=== PATIENT | female | born 1940 | race Two or more races ===

== ENCOUNTER → 2016-12-19 | Outpatient (CLI) | payer MEDICARE, BC ==
[2016-12-19 11:13] LABS: CHOLESTEROL 158.71 mg/dL (0-200); TRIGLYCERIDES 65 mg/dL (<150)
[2016-12-19 11:24] LABS: DIRECT LDL 40 mg/dL (<100)
[2016-12-19 11:27] LABS: Direct HDL 109 mg/dL (>40)
== END ==
LOC: OD 09:05
PROVIDERS: ATTEND Internal Medicine
DX: E78.5 Hyperlipidemia, unspecified (principal); E11.9 Type 2 diabetes mellitus without complications
CPT/HCPCS: 36415; 80061; 82043; 83036

== ENCOUNTER → 2017-02-14 | Outpatient (CLI) | payer MEDICARE, BC ==
--- NOTE | 2017-02-14 21:07 | XCELERA REPORT ---
[address] [address] Transthoracic Echocardiogram Report Name: MALGORZATA SOSA Age: 76 yrs Gender: Female : 1940 Patient Status: Outpatient Patient Location: Study Date: 02/14/2017 01:25 PM Height: 60 in Weight: 255 lb BSA: 2.1 m2 Procedure: A complete two-dimensional transthoracic echocardiogram was performed (2D, M-mode, spectral and color flow Doppler). The study was technically difficult with many images being suboptimal in quality. Reason For Study: SOB Ordering Physician: LEATHA DUNN Performed By: Marine Moseley Interpretation Summary The left ventricular ejection fraction is within normal limits. There is borderline concentric left ventricular hypertrophy. Doppler measurements suggest pseudonormalized left ventricular relaxation, which is associated with grade II/IV or mild to moderate diastolic dysfunction The left ventricle is grossly normal size. Wall motion cannot be accurately commented on, but no definite regional wall motion abnormalities noted. The right ventricle is mildly dilated. The right ventricle appears to be hypertrophied The right ventricular systolic function is normal. The right atrium is mildly dilated. The left atrium is mildly dilated. There is no mitral valve stenosis. There is a mild amount of mitral regurgitation There is no aortic valve stenosis No aortic regurgitation is present. There is a trace to mild amount of tricuspid regurgitation There is mild pulmonary hypertension by echo Right ventricular systolic pressure is estimated to be elevated at 30- 40mmHg. Minimal pericardial effusion. MMode/2D Measurements \T\ Calculations RVDd: 2.8 cm LVIDd: 5.0 cm FS: 48.4 % Ao root diam: 2.7 cm IVSd: 0.92 cm LVIDs: 2.6 cm EDV(Teich): 119.4 ml LVPWd: 0.85 cm ESV(Teich): 24.5 ml Ao root area: 5.6 cm2 EF(Teich): 79.5 % LA dimension: 3.9 cm Doppler Measurements \T\ Calculations MV E max keke: MV P1/2t max keke: Ao V2 max: LV V1 max P.0 cm/sec 117.0 cm/sec 156.3 cm/sec 3.8 mmHg MV A max keke: MV P1/2t: 86.0 msec Ao max PG: LV V1 max: 139.2 cm/sec 9.8 mmHg 97.2 cm/sec MV E/A: 0.84 MVA(P1/2t): 2.6 cm2 MV dec slope: 398.3 cm/sec2 MV dec time: 0.29 sec PA V2 max: TR max keke: 105.6 cm/sec 285.6 cm/sec PA max P.5 mmHgTR max P.6 mmHg Left Ventricle The left ventricle is grossly normal size. There is borderline concentric left ventricular hypertrophy. The left ventricular ejection fraction is within normal limits. Doppler measurements suggest pseudonormalized left ventricular relaxation, which is associated with grade II/IV or mild to moderate diastolic dysfunction. Wall motion cannot be accurately commented on, but no definite regional wall motion abnormalities noted. Right Ventricle The right ventricle is mildly dilated. The right ventricle appears to be hypertrophied. The right ventricular systolic function is normal. Atria The right atrium is mildly dilated. The left atrium is mildly dilated. Interarterial septum not well visualized and not well dopplered. Cannot comment on ASD/PFO presence. Mitral Valve There is mild mitral annular calcification. There is no mitral valve stenosis. There is a mild amount of mitral regurgitation. Aortic Valve The aortic valve is mildly calcified. There is no aortic valve stenosis. No aortic regurgitation is present. Tricuspid Valve The tricuspid valve is not well visualized secondary to technical limitations. There is no tricuspid stenosis. There is a trace to mild amount of tricuspid regurgitation. There is mild pulmonary hypertension by echo. Right ventricular systolic pressure is estimated to be elevated at 30-40mmHg. Pulmonic Valve The pulmonic valve is not well visualized. Great Vessels The aortic root is not well visualized. The inferior vena cava was not well visualized. Effusions Minimal pericardial effusion. : LEATHA DUNN > Sagar Chaidez
== END ==
LOC: SP 12:55
PROVIDERS: ATTEND Family Medicine
DX: R06.02 Shortness of breath (principal)
CPT/HCPCS: 93306

== ENCOUNTER → 2017-03-27 | Outpatient (CLI) | payer MEDICARE, BC ==
--- NOTE | 2017-03-27 16:13 | XCELERA REPORT ---
[address] [address] Lower Extremity Arterial Evaluation Name: MALGORZATA SOSA Age: 76 yrs Gender: Female : 1940 Patient Status: Outpatient Patient Location: Study Date: 03/27/2017 11:15 AM Procedure: A color flow and duplex scan of the lower extremity arteries was performed bilaterally with velocity and waveform anaylsis. Ankle brachial indicies performed. Reason For Study: PAIN Ordering Physician: LEATHA DUNN Performed By: Marine Moseley Measurements and Calculations Right Left MODEL ENGINE MECHANIC PSV 105.3 86.9 cm/sec Prox PFA PSV -91.5 -125.7 cm/sec Prox SFA PSV 81.6 70.2 cm/sec Mid SFA PSV -87.1 -86.6 cm/sec Dist SFA PSV -121.3 -48.9 cm/sec Prox Pop A PSV 91.0 81.6 cm/sec Dist KAITY PSV 53.8 31.4 cm/sec Dist GRANITE COUNTERTOP INSTALLER PSV 100.9 79.5 cm/sec Brian Pedis PSV 62.1 -50.2 cm/sec Right Side Arterial Evaluation Normal velocity and triphasic waveforms noted in the Common Femoral artery. Biphasic from the Femoral to the infrageniculate vessels. 0-19% stenosis at the Femoral artery. Ankle Brachial index not obtainable due to non compressibility. Diffuse intimal calcification noted on burrell scale imaging. Left Side Arterial Evaluation Normal velocity and biphasic waveforms noted from the Common Femoral artery to the infrageniculate vessels. 0-19% stenosis at the inflow, aorta Iliac segment. Ankle Brachial index not obtainable due to non compressibility. Diffuse intimal calcification noted on burrell scale imaging. Interpretation Summary Mild hemodynamically significant lesions in the bilateral lower extremities, on duplex imaging, at rest. : LEATHA DUNN > Pablito Calderon
== END ==
LOC: SP 10:19
PROVIDERS: ATTEND Family Medicine
DX: M79.604 Pain in right leg (principal); M79.605 Pain in left leg
CPT/HCPCS: 93925

== ENCOUNTER 2017-05-31 12:17 | Emergency (ER) | payer MEDICARE, BC ==
--- NOTE | 2017-05-31 12:58 | ER Document Report ---
ED Medical Screen (RME) - General Chief Complaint: Foot Pain Stated Complaint: FEET PAIN Time Seen by Provider: 05/31/17 12:55 Mode of Arrival: Wheelchair Information source: Patient TRAVEL OUTSIDE OF THE [place] IN LAST 30 DAYS: No - HPI Patient complains to provider of: ulcers on both feet Onset: Other - pt has been referred to surgeon in [facility] to "improve the circulation in my legs" has had bilateral ulcers on feet for several weeks that have not healed. - Related Data Allergies/Adverse Reactions: No Known Allergies Allergy (Verified 05/15/16 16:29) Past Medical History - Social History Frequency of alcohol use: None Drug Abuse: None - Past Medical History Cardiac Medical History: Reports: Hx Hypercholesterolemia, Hx Hypertension Endocrine Medical History: Reports: Hx Diabetes Mellitus Type 1, Hx Diabetes Mellitus Type 2 Renal/ Medical History: Denies: Hx Peritoneal Dialysis GI Medical History: Reports: Hx Gastroesophageal Reflux Disease Past Surgical History: Reports: Hx Cholecystectomy - Immunizations Hx Diphtheria, Pertussis, Tetanus Vaccination: Yes Physical Exam - Vital signs Vitals: Temp Pulse Resp BP Pulse Ox 98.1 F 64 16 91/54 L 99 05/31/17 12:31 05/31/17 12:31 05/31/17 12:31 05/31/17 12:31 05/31/17 12:31 Course - Vital Signs Vital signs: Temp Pulse Resp BP Pulse Ox 98.1 F 64 16 91/54 L 99 05/31/17 12:31 05/31/17 12:31 05/31/17 12:31 05/31/17 12:31 05/31/17 12:31
--- NOTE | 2017-05-31 13:24 | ER Document Report ---
ED General - General Chief Complaint: Foot Pain Stated Complaint: FEET PAIN Time Seen by Provider: 05/31/17 12:55 Mode of Arrival: Wheelchair Information source: Patient Notes: 7-year-old female presents to ED for diabetic ulcers to bilateral feet multiple areas 3 months. She is also a history of diabetes high blood pressure cholesterol and anemia. She states she has been short of breath times a week with palpitations. Blood pressure in the emergency room is 91/54 with a pulse of 64. TRAVEL OUTSIDE OF THE [place] IN LAST 30 DAYS: No - HPI Onset: Other - HPI Onset/Duration: Gradual Severity: Severe Pain Level: 5 Associated symptoms: Other - The bilateral feet shortness of breath states she has had palpitations for the last week. Has a history of anemia diabetes blood pressure cholesterol Exacerbated by: Movement, Walking Relieved by: Denies Similar symptoms previously: Yes Recently seen / treated by doctor: Yes - Related Data Allergies/Adverse Reactions: No Known Allergies Allergy (Verified 05/15/16 16:29) Past Medical History - General Information source: Patient - Social History Smoking Status: Never Smoker Cigarette use (# per day): No Chew tobacco use (# tins/day): No Smoking Education Provided: No Frequency of alcohol use: None Drug Abuse: None Lives with: Family Family History: Arthritis, CAD, DM, Hyperlipidemia, Hypertension. denies: COPD , CVA, Malignancy, Thyroid Disfunction Patient has suicidal ideation: No Patient has homicidal ideation: No - Medical History Medical History: Other - Anemia - Past Medical History Cardiac Medical History: Reports: Hx Hypercholesterolemia, Hx Hypertension Pulmonary Medical History: Reports: None EENT Medical History: Reports: None Endocrine Medical History: Reports: Hx Diabetes Mellitus Type 2 Renal/ Medical History: Reports: None Malignancy Medical History: Reports: None GI Medical History: Reports: Hx Gastroesophageal Reflux Disease Musculoskeltal Medical History: Reports Hx Arthritis Skin Medical History: Reports Hx Cellulitis Psychiatric Medical History: Reports: None Traumatic Medical History: Reports: None Infectious Medical History: Reports: None Past Surgical History: Reports: Hx Cholecystectomy - Immunizations Immunizations up to date: Yes Hx Diphtheria, Pertussis, Tetanus Vaccination: Yes Review of Systems - Review of Systems Constitutional: No symptoms reported EENT: No symptoms reported Cardiovascular: Palpitations Respiratory: Short of breath, Other - Anemia Gastrointestinal: No symptoms reported Genitourinary: No symptoms reported Female Genitourinary: No symptoms reported Musculoskeletal: No symptoms reported Skin: Other - Diabetic ulcers to both feet Hematologic/Lymphatic: No symptoms reported Neurological/Psychological: No symptoms reported -: Yes All other systems reviewed and negative Physical Exam - Vital signs Vitals: Temp Pulse Resp BP Pulse Ox 98.1 F 64 16 91/54 L 99 05/31/17 12:31 05/31/17 12:31 05/31/17 12:31 05/31/17 12:31 05/31/17 12:31 Interpretation: Normal - General General appearance: Appears well, Alert - HEENT Head: Normocephalic, Atraumatic Eyes: Normal Pupils: PERRL - Respiratory Respiratory status: No respiratory distress Chest status: Nontender Breath sounds: Normal Chest palpation: Normal - Cardiovascular Rhythm: Regular Heart sounds: Normal auscultation Murmur: No - Abdominal Inspection: Normal Distension: No distension Bowel sounds: Normal Tenderness: Nontender Organomegaly: No organomegaly - Back Back: Normal, Nontender - Extremities General upper extremity: Normal inspection, Nontender, Normal color, Normal ROM , Normal temperature General lower extremity: Normal inspection, Nontender, Normal color, Normal ROM , Normal temperature, Normal weight bearing. No: Sadi's sign - Neurological Neuro grossly intact: Yes Cognition: Normal Orientation: AAOx4 Malissa Coma Scale Eye Opening: Spontaneous [place] Coma Scale Verbal: Oriented Malsisa Coma Scale Motor: Obeys Commands Am[place] Coma Scale Total: 15 Speech: Normal Motor strength normal: LUE, RUE, LLE, RLE Sensory: Normal - Psychological Associated symptoms: Normal affect, Normal mood - Skin Skin Temperature: Warm Skin Moisture: Dry Skin Color: Normal Location of irregularity: Extremities - Multiple diabetic ulcers to both feet. Second toe on right foot is very mushy and discolored. Both have a decubitus the medial side of the left foot beside the big toe has a ulcer. Irregularity with: Swelling, Tenderness Course - Re-evaluation Re-evalutation: 05/31/17 16:07 Chest x-ray with patient and written report given to patient to follow-up with her primary doctor. Patient discharged home to follow-up with her primary doctor by telephone - Vital Signs Vital signs: Temp Pulse Resp BP Pulse Ox 98.1 F 64 18 110/63 99 05/31/17 12:31 05/31/17 15:49 05/31/17 15:49 05/31/17 15:49 05/31/17 15:49 - Laboratory Result Diagrams: 05/31/17 13:30 05/31/17 14:35 Laboratory results interpreted by me: 05/31/17 05/31/17 13:30 14:35 MCH 26.1 L MCHC 31.6 L Sodium 136.6 L Est GFR ( Amer) 57 L Est GFR (Non-Af Amer) 47 L Glucose 213 H - Diagnostic Test Radiology reviewed: Image reviewed, Reports reviewed Discharge - Discharge Clinical Impression: Diabetic feet ulcers bilateral Condition: Stable Disposition: HOME, SELF-CARE Additional Instructions: Seen today for diabetic foot ulcers to both feet. I have given you and discussed with you a copy of your lab work from today as well as x-rays of both feet and your chest. Please take your lab results and your x-ray results to your primary doctor for follow-up. Please call your primary doctor tomorrow and let them know that you were in the emergency room. Continue medications and dressings as prescribed by your primary doctor. FOLLOW-UP CARE: If you have been referred to a physician for follow-up care, call the physician s office for an appointment as you were instructed or within the next two days. If you experience worsening or a significant change in your symptoms, notify the physician immediately or return to the Emergency Department at any time for re-evaluation. Referrals: LEATHA DUNN MD [Primary Care Provider] - Follow up tomorrow
[2017-05-31 13:50] LABS: ABSOLUTE BASOPHILS # (AUTO) 0.1 10^3/uL (0.0-0.2); ABSOLUTE EOSINOPHILS # (AUTO) 0.1 10^3/uL (0.0-0.6); ABSOLUTE LYMPHOCYTES (AUTO) 2.2 10^3/uL (0.5-4.7); ABSOLUTE MONOCYTES (AUTO) 0.5 10^3/uL (0.1-1.4); ABSOLUTE NEUT (AUTO) 6.6 10^3/uL (1.7-8.2); BASOPHILS % (AUTO) 0.6 % (0-2); EOSINOPHILS % (AUTO) 1.3 % (0-6); HEMATOCRIT 40.6 % (36.0-47.0); HEMOGLOBIN 12.8 g/dL (12.0-15.5); HGB HCT DIFFERENCE -2.2; LYMPHOCYTES % (AUTO) 23.2 % (13-45); MEAN CORPUSCULAR HEMOGLOBIN 26.1 pg (27.0-33.4); MEAN CORPUSCULAR HGB CONC 31.6 g/dL (32.0-36.0); MEAN CORPUSCULAR VOLUME 83 fl (80-97); MONOCYTES % (AUTO) 5.8 % (3-13); RED BLOOD COUNT 4.92 10^6/uL (3.72-5.28); SEGMENTED NEUTROPHILS % (AUTO) 69.1 % (42-78); WHITE BLOOD COUNT 9.5 10^3/uL (4.0-10.5)
--- NOTE | 2017-05-31 14:51 | RADIOLOGY REPORT (SQ) ---
EXAM DESCRIPTION: CHEST PA/LAT COMPLETED DATE/TIME: 05/31/2017 2:35 pm REASON FOR STUDY: short of breath 3 + edema COMPARISON: August 2016 EXAM PARAMETERS: NUMBER OF VIEWS: two views TECHNIQUE: Digital Frontal and Lateral radiographic views of the chest acquired. RADIATION DOSE: NA LIMITATIONS: Study is limited somewhat due to the patient's body habitus. FINDINGS: LUNGS AND PLEURA: No opacities, masses or pneumothorax. No pleural effusion. MEDIASTINUM AND HILAR STRUCTURES: No masses or contour abnormalities. HEART AND VASCULAR STRUCTURES: Heart normal size. No evidence for failure. BONES: No acute findings. HARDWARE: None in the chest. OTHER: No other significant finding. IMPRESSION: NO SIGNIFICANT RADIOGRAPHIC FINDING IN THE CHEST. TECHNICAL DOCUMENTATION: JOB ID: [id number] [employer]- All Rights Reserved
--- NOTE | 2017-05-31 14:52 | RADIOLOGY REPORT (SQ) ---
EXAM DESCRIPTION: FOOT LEFT COMPLETE COMPLETED DATE/TIME: 05/31/2017 2:35 pm REASON FOR STUDY: multiple foot ulcers COMPARISON: None. NUMBER OF VIEWS: Three views. TECHNIQUE: AP, lateral and oblique radiographic images acquired of the left foot. LIMITATIONS: Bony structures are osteopenic which decreases the sensitivity for detecting bony invol vement by osteomyelitis. FINDINGS: MINERALIZATION: Bony structures are diffusely osteopenic BONES: No acute fracture or dislocation. No worrisome bone lesions. JOINTS: No effusions. SOFT TISSUES: No soft tissue swelling. No foreign body. OTHER: Extensive vascular calcifications are identified. IMPRESSION: No plain film evidence for bony involvement by osteomyelitis. No definite subcutaneous air is identified. Extensive vascular calcifications are identified TECHNICAL DOCUMENTATION: JOB ID: [id number] [employer]- All Rights Reserved
--- NOTE | 2017-05-31 14:54 | RADIOLOGY REPORT (SQ) ---
EXAM DESCRIPTION: FOOT RIGHT COMPLETE COMPLETED DATE/TIME: 05/31/2017 2:35 pm REASON FOR STUDY: multiple foot ulcers COMPARISON: None. NUMBER OF VIEWS: Three views. TECHNIQUE: AP, lateral and oblique radiographic images acquired of the right foot. LIMITATIONS: Bony structures are osteopenic which decreases the sensitivity for detecting bony invol vement by osteomyelitis. FINDINGS: MINERALIZATION: Bony structures are osteopenic BONES: No acute fracture or dislocation. No worrisome bone lesions. JOINTS: No effusions. SOFT TISSUES: No soft tissue swelling. No foreign body. OTHER: Vascular calcifications are identified. IMPRESSION: No plain film evidence for bony involvement by osteomyelitis. Other findings as noted a eber. TECHNICAL DOCUMENTATION: JOB ID: [id number] [employer]- All Rights Reserved
[2017-05-31 15:28] LABS: ALANINE AMINOTRANSFERASE 21 U/L (9-52); ALBUMIN 3.6 g/dL (3.5-5.0); ALKALINE PHOSPHATASE 81 U/L (38-126); ANION GAP 12 (5-19); ASPARTATE AMINO TRANSFERASE 17 U/L (14-36); BILIRUBIN,DIRECT 0.3 mg/dL (0.0-0.4); BILIRUBIN,TOTAL 0.5 mg/dL (0.2-1.3); BLOOD UREA NITROGEN 20 mg/dL (7-20); CALCIUM 9.6 mg/dL (8.4-10.2); CARBON DIOXIDE 22 mmol/L (22-30); CHLORIDE 103 mmol/L (98-107); CREATININE RESULT 1.13 mg/dL (0.52-1.25); GLUCOSE 213 mg/dL (75-110); SODIUM 136.6 mmol/L (137-145); TOTAL PROTEIN 6.8 g/dL (6.3-8.2)
[2017-05-31 15:50] VITALS: BP 110/63
== END 2017-05-31 16:05 | disposition home or self-care (01) ==
LOC: ER 12:17
DX: E11.621 Type 2 diabetes mellitus with foot ulcer (principal); L97.519 Non-pressure chronic ulcer of other part of right foot with unspecified severity; L97.529 Non-pressure chronic ulcer of other part of left foot with unspecified severity; R06.02 Shortness of breath; E78.00 Pure hypercholesterolemia, unspecified; I10 Essential (primary) hypertension; D64.9 Anemia, unspecified; Z90.49 Acquired absence of other specified parts of digestive tract
CPT/HCPCS: 36415; 71020; 80053; 83880; 85025; 86850; 86900; 86901; 87040; 99283

== ENCOUNTER 2017-06-17 14:54 | Inpatient (IN) | payer MEDICARE, BC ==
--- NOTE | 2017-06-17 15:41 | ER Document Report ---
ED Wound <MONSE PALM - Last Filed: 06/17/17 18:57> - General Information source: Patient TRAVEL OUTSIDE OF THE [place] IN LAST 30 DAYS: No - HPI Patient complains to provider of: Wound infection Associated Symptoms: Other - see above <ALONSO DALEANDRA - Last Filed: 06/17/17 19:13> - General Chief Complaint: Wound Infection Stated Complaint: FOOT PAIN Time Seen by Provider: 06/17/17 15:14 Notes: Patient is a 77 year old female who presents to the ED from the wound clinic with complaints of bilateral foot pain and wound infection. Patient had a failed angioplasty done on both legs on 06/11/2017 in [place]. Patient states her left foot is worse than her right foot. PCP: Dr. Schmitt (MARLENE DALE) - Related Data Allergies/Adverse Reactions: No Known Allergies Allergy (Verified 06/17/17 15:06) Home Medications: Current Home Medications Aspirin [Aspirin 81 mg Chewable Tablet] 81 mg PO DAILY 06/17/17 [History] Hydrochlorothiazide 25 mg PO DAILY 06/17/17 [History] Insulin Glargine,Hum.rec.anlog [Lantus Insulin 100 Unit/1 ml 10 ml] 40 unit SUBCUT DAILY 06/17/17 [History] Insulin Lispro [Humalog] 15 unit SQ TID 06/17/17 [History] Latanoprost 1 drop OU QHS 06/17/17 [History] Losartan Potassium PO DAILY 06/17/17 [History] Metformin HCl [Glucophage] 1,000 mg PO BID 06/17/17 [History] Simvastatin [Zocor 20 mg Tablet] 20 mg PO DAILY 06/17/17 [History] Timolol Maleate [Timoptic 0.25% Oph Soln 5 Ml] 2 drop OU BID 06/17/17 [History] Past Medical History - General Information source: Patient - Social History Smoking Status: Unknown if Ever Smoked Frequency of alcohol use: None Drug Abuse: None Family History: Arthritis, CAD, DM, Hyperlipidemia, Hypertension. denies: COPD , CVA, Malignancy, Thyroid Disfunction - Past Medical History Cardiac Medical History: Reports: Hx Hypercholesterolemia, Hx Hypertension, Hx Peripheral Vascular Disease EENT Medical History: Reports: Eyes - Glaucoma Endocrine Medical History: Reports: Hx Diabetes Mellitus Type 2 Renal/ Medical History: Denies: Hx Peritoneal Dialysis GI Medical History: Reports: Hx Gastroesophageal Reflux Disease Musculoskeltal Medical History: Reports Hx Arthritis Skin Medical History: Reports Hx Cellulitis Past Surgical History: Reports: Hx Cholecystectomy - Immunizations Immunizations up to date: Yes Hx Diphtheria, Pertussis, Tetanus Vaccination: Yes <MARLENE DALE - Last Filed: 06/17/17 19:13> Review of Systems - Review of Systems Constitutional: No symptoms reported EENT: No symptoms reported Cardiovascular: No symptoms reported Respiratory: No symptoms reported Gastrointestinal: No symptoms reported Genitourinary: No symptoms reported Female Genitourinary: No symptoms reported Musculoskeletal: See HPI, Other - bilateral foot pain secondary to wound infection Skin: See HPI, Other - bilateral wound infeciton on feet Hematologic/Lymphatic: No symptoms reported Neurological/Psychological: No symptoms reported <ALONSO DALEANDRA - Last Filed: 06/17/17 19:13> Physical Exam <MONSE PALM - Last Filed: 06/17/17 18:57> <MARLENE DALE - Last Filed: 06/17/17 19:13> - Vital signs Vitals: Temp Pulse Resp BP Pulse Ox 99.3 F 78 16 115/56 L 97 06/17/17 15:04 06/17/17 15:04 06/17/17 15:04 06/17/17 15:04 06/17/17 15:04 - Notes Notes: GENERAL: Well-appearing, well nourished and in no acute distress. HEAD: Normocephalic, atraumatic. Eyes: Pupils equal, round, and reactive to light. Extraocular movements intact. ENT: Oral mucosa moist, tongue midline. NECK: Full range of motion. Supple without lymphadenopathy. LUNGS: Clear to auscultation bilaterally, no wheezes, rales, or rhonchi. No respiratory distress. HEART: Regular rate and rhythm. No murmurs, gallops, or rubs. ABDOMEN: Soft, non-tender. Obese. Bowel sounds present in all 4 quadrants. EXTREMITIES: Normal ROM. No Edema. NEUROLOGICAL: Alert and oriented x3. Normal speech. No focal neurological deficits. PSYCH: Normal affect, normal mood. SKIN: Right 4th toe is black, chronically and unchanged. Right lateral heel has a small ulcer with no swelling or infection noted. Left lateral foot has a large stage 4 ulcer that is wet with a bad odor, 3x6 cm with macerated skin around the edges. (MARLENE DALE) Course - Laboratory Result Diagrams: 06/17/17 17:29 06/17/17 17:29 <MONSE PALM - Last Filed: 06/17/17 18:57> - Laboratory Result Diagrams: 06/17/17 17:29 06/17/17 17:29 - Consults Dr. Schmitt Time consulted: 19:00 Consulted provider: will see as inpatient Dr. Pearson Time consulted: 19:07 <MARLENE DALE - Last Filed: 06/17/17 19:13> - Vital Signs Vital signs: Temp Pulse Resp BP Pulse Ox 99.3 F 78 16 115/56 L 97 06/17/17 15:04 06/17/17 15:04 06/17/17 15:04 06/17/17 15:04 06/17/17 15:04 - Laboratory Laboratory results interpreted by me: 06/17/17 06/17/17 06/17/17 17:18 17:29 17:29 WBC 17.0 H Hgb 10.4 L Hct 31.4 L MCH 26.8 L RDW 14.6 H Seg Neutrophils % 85.0 H Lymphocytes % 8.8 L Absolute Neutrophils 14.5 H Carbon Dioxide 19 L Est GFR (Non-Af Amer) 51 L Glucose 151 H AST 39 H Alkaline Phosphatase 155 H Albumin 3.3 L Urine Ketones TRACE H - Consults Dr. Schmitt Reason for consultation: 06/17/17 19:00 Discussed patient. Patient is accepted for admission. I will consult with Dr. Pearson to have him evaluate the patient. (MARLENE DALE) Dr. Pearson Reason for consultation: 06/17/17 19:07 Discussed patient. He agrees to assess the patient as inpatient. (MARLENE DALE) Discharge - Discharge Admitting Provider: [facility] Unit Admitted: Medical Floor <MONSE PALM - Last Filed: 06/17/17 18:57> <MARLENE DALE - Last Filed: 06/17/17 19:13> - Discharge Clinical Impression: Diabetic foot ulcers Qualifiers: Diabetic foot ulcer location: unspecified part of foot Diabetes mellitus type: type 2 Laterality: left Non-pressure ulcer stage: unspecified non-pressure ulcer stage Qualified Code(s): E11.621 - Type 2 diabetes mellitus with foot ulcer Leukocytosis Qualifiers: Leukocytosis type: unspecified Qualified Code(s): D72.829 - Elevated white blood cell count, unspecified Referrals: LEATHA SCHMITT MD [Primary Care Provider] - Follow up as needed Scribe Attestation: 06/17/17 19:08 I personally performed the services described in the documentation, reviewed and edited the documentation which was dictated to the scribe in my presence, and it accurately records my words and actions. (MONSE PALM) Scribe Documentation - Scribe Written by Alexa:: alexa Foster, 06/17/2017, 1535 acting as scribe for :: Joni <MARLENE DALE - Last Filed: 06/17/17 19:13>
[2017-06-17 17:45] LABS: ABSOLUTE BASOPHILS # (AUTO) 0.1 10^3/uL (0.0-0.2); ABSOLUTE LYMPHOCYTES (AUTO) 1.5 10^3/uL (0.5-4.7); ABSOLUTE MONOCYTES (AUTO) 0.9 10^3/uL (0.1-1.4); ABSOLUTE NEUT (AUTO) 14.5 10^3/uL (1.7-8.2); BASOPHILS % (AUTO) 0.5 % (0-2); EOSINOPHILS % (AUTO) 0.3 % (0-6); HEMATOCRIT 31.4 % (36.0-47.0); HEMOGLOBIN 10.4 g/dL (12.0-15.5); HGB HCT DIFFERENCE -0.2; LYMPHOCYTES % (AUTO) 8.8 % (13-45); MEAN CORPUSCULAR HEMOGLOBIN 26.8 pg (27.0-33.4); MEAN CORPUSCULAR HGB CONC 33.2 g/dL (32.0-36.0); MEAN CORPUSCULAR VOLUME 81 fl (80-97); MONOCYTES % (AUTO) 5.4 % (3-13); RED BLOOD COUNT 3.88 10^6/uL (3.72-5.28); RED CELL DISTRIBUTION WIDTH 14.6 % (11.5-14.0)
[2017-06-17 18:13] LABS: ALANINE AMINOTRANSFERASE 35 U/L (9-52); ALBUMIN 3.3 g/dL (3.5-5.0); ALKALINE PHOSPHATASE 155 U/L (38-126); ANION GAP 14 (5-19); ASPARTATE AMINO TRANSFERASE 39 U/L (14-36); BILIRUBIN,DIRECT 0.4 mg/dL (0.0-0.4); BILIRUBIN,TOTAL 0.7 mg/dL (0.2-1.3); BLOOD UREA NITROGEN 16 mg/dL (7-20); CALCIUM 9.4 mg/dL (8.4-10.2); CARBON DIOXIDE 19 mmol/L (22-30); CHLORIDE 105 mmol/L (98-107); CREATININE RESULT 1.05 mg/dL (0.52-1.25); GLUCOSE 151 mg/dL (75-110); POTASSIUM 4.8 mmol/L (3.6-5.0); SODIUM 137.6 mmol/L (137-145); TOTAL PROTEIN 6.3 g/dL (6.3-8.2)
[2017-06-17 18:54] LABS: APPEARANCE,URINE SLIGHTLY-CLOUDY; BILIRUBIN,URINE NEGATIVE (NEGATIVE); GLUCOSE, URINE NEGATIVE (NEGATIVE); KETONES,URINE TRACE mg/dL (NEGATIVE); LEUKOCYTE ESTERASE,URINE NEGATIVE (NEGATIVE); NITRITE,URINE NEGATIVE (NEGATIVE); PROTEIN,URINE NEGATIVE (NEGATIVE); URINE SPECIFIC GRAVITY 1.014; UROBILINOGEN,URINE NEGATIVE mg/dL (<2.0)
[2017-06-17] MEDS ORDERED: ERTAPENEM SODIUM INJ 1 GM VIAL IV ONE (19:08)
[2017-06-17] MEDS ORDERED: ONDANSETRON HCL INJ/PF 4 MG/2 ML SDV IV PRN (19:26)
[2017-06-17] MEDS ORDERED: GLUCAGON,HUMAN RECOMB 1 MG INJ IM PRN (19:34)
[2017-06-17] MEDS ORDERED: DEXTROSE 50%-WATER 25 GM/50 ML DISP.SYRIN IV PRN ×2 (19:34)
[2017-06-17] MEDS ORDERED: DEXTROSE 40% GEL 15 GM TUBE PO PRN ×2 (19:34)
[2017-06-17 19:47] LABS: PROTHROMBIN TIME 13.4 SEC (11.4-15.4)
--- NOTE | 2017-06-17 20:02 | PDOC CONSULTATION ---
Consultation Consult Date: 06/17/17 Attending physician:: MICHAEL SCHMITT Consult reason:: ischemic left foot History of Present Illness Admission Date/PCP: 06/17/17 19:27 LEATHA SCHMITT MD History of Present Illness: MALGORZATA SOSA is a 77 year old female Who was sent to the emergency department for further evaluation and admission to [facility] under the care of Dr. Schmitt. The patient was seen at the advanced wound center today by Dr. Real who is been following her for some time. The patient has a known left posterior lateral foot wound related to diabetic infection and ischemic neuropathy. Patient is a 5 day status post arteriogram by Dr. Andrea in [place]. I spoke with Dr. Andrea on the phone this evening who stated that the patient's inflow at the SFA and popliteal arteries is acceptable, however her reconstitution at the ankle and beyond his pathetic; there is no opportunity for revascularization distally. Patient evaluated in the emergency department with a septic left foot, foul smelling and surgery was consulted. According to patient she has not walked in over 2 months although I cannot verify this report. Apparently she has chronic back pain obesity and has walk with a walker in the past. Past Medical History Cardiac Medical History: Reports: Hyperlipidema, Hypertension, Peripheral Vascular Disease EENT Medical History: Reports: Eyes - Glaucoma Endocrine Medical History: Reports: Diabetes Mellitus Type 1, Diabetes Mellitus Type 2 GI Medical History: Reports: Gastroesophageal Reflux Disease Musculoskeltal Medical History: Reports: Arthritis Past Surgical History Past Surgical History: Reports: Cholecystectomy, Other - Midline incision for uncertain reason Social History Smoking Status: Unknown if Ever Smoked Frequency of Alcohol Use: None Drugs: None Family History Family History: Arthritis, CAD, DM, Hyperlipidemia, Hypertension. denies: COPD , CVA, Malignancy, Thyroid Disfunction Parental Family History Reviewed: Yes Children Family History Reviewed: Yes Sibling(s) Family History Reviewed.: Yes Medication/Allergy Home Medications: Aspirin [Aspirin 81 mg Chewable Tablet] 81 mg PO DAILY 06/17/17 Hydrochlorothiazide 25 mg PO DAILY 06/17/17 Insulin Glargine,Hum.rec.anlog [Lantus Insulin 100 Unit/1 ml 10 ml] 40 unit SUBCUT DAILY 06/17/17 Insulin Lispro [Humalog] 15 unit SQ TID 06/17/17 Latanoprost 1 drop OU QHS 06/17/17 Losartan Potassium PO DAILY 06/17/17 Metformin HCl [Glucophage] 1,000 mg PO BID 06/17/17 Simvastatin [Zocor 20 mg Tablet] 20 mg PO DAILY 06/17/17 Timolol Maleate [Timoptic 0.25% Oph Soln 5 Ml] 2 drop OU BID 06/17/17 Allergies/Adverse Reactions: No Known Allergies Allergy (Verified 06/17/17 15:06) Review of Systems Constitutional: PRESENT: other - Has been having cold and hot spells Eyes: ABSENT: visual disturbances Ears: ABSENT: hearing changes Cardiovascular: ABSENT: chest pain, dyspnea on exertion, edema, orthropnea, palpitations Musculoskeletal: PRESENT: back pain Psychiatric: ABSENT: anxiety, depression, homidical ideation, suicidal ideation Endocrine: ABSENT: cold intolerance, heat intolerance, polydipsia, polyuria Physical Exam Vital Signs: Temp Pulse Resp BP Pulse Ox 99.3 F 78 16 115/56 L 97 06/17/17 15:04 06/17/17 15:04 06/17/17 15:04 06/17/17 15:04 06/17/17 15:04 General appearance: PRESENT: no acute distress Head exam: PRESENT: normocephalic Eye exam: PRESENT: EOMI Ear exam: PRESENT: TM's normal bilaterally Teeth exam: PRESENT: dental caries Neck exam: PRESENT: full ROM Respiratory exam: PRESENT: retraction Cardiovascular exam: PRESENT: irregular rhythm Vascular exam: PRESENT: other - Patient has normal radial, femoral pulses bilaterally. I cannot palpate popliteal pulses. Rectal exam: PRESENT: deferred Extremities exam: PRESENT: other - Foul-smelling open necrotic wound posterior lateral aspect left foot with ischemic changes to the forefoot and some elements of cyanosis. Right heel with open ulcer. Assessment & Plan - Diagnosis (2) Diabetic foot ulcers Qualifiers: Diabetic foot ulcer location: unspecified part of foot Diabetes mellitus type: type 2 Laterality: left Non-pressure ulcer stage: unspecified non-pressure ulcer stage Qualified Code(s): E11.621 - Type 2 diabetes mellitus with foot ulcer; L97.509 - Non-pressure chronic ulcer of other part of unspecified foot with unspecified severity Is this a current diagnosis for this admission?: YesPlan: Chronic, now progressing to ischemia extubated by diabetes and underlying infection. Patient has worsening pain left foot greater than right foot. Status post arteriogram demonstrating insufficient vascularity below the ankle to heal her complex left foot wound Recommendations 1. I discussed patient's condition with herself and her family. In light of Dr. Andrea's recent evaluation, patient salvageable foot. She will require an amputation, below the knee versus above the knee, depending upon her personal preference, overall rehab, personal motivation to walk again, and support system. 2. Agree with IV fluids intravenous antibiotics and local wound care. 3. Discuss further with family inpatient care team surgical treatment strategy ; the patient and family that delay in May and ongoing sepsis and septic shock. - Time Time Spent: 30 to 50 Minutes Critical Time spent with patient: 15-24 minutes
[2017-06-17] MEDS ORDERED: IPRATROPIUM/ALBUTEROL 0.5-2.5 MG/3 ML AMPUL NEB ONE (20:37)
[2017-06-17] MEDS: IPRATROPIUM/ALBUTEROL 0.5-2.5 MG/3 ML AMPUL NEB SCH (21:38)
[2017-06-17] MEDS: LATANOPROST 0.005% OPH SOLN 2.5 ML OU SCH (22:14)
[2017-06-17] MEDS: INSULIN LISPRO 100 UNIT/ML 3 ML VIAL SUBCUT PRN (22:36)
[2017-06-18] MEDS: ACETAMINOPHEN 325 MG TABLET PO PRN ×2 (01:24→08:42)
[2017-06-18 05:37] LABS: ABSOLUTE BASOPHILS # (AUTO) 0.1 10^3/uL (0.0-0.2); ABSOLUTE EOSINOPHILS # (AUTO) 0.1 10^3/uL (0.0-0.6); ABSOLUTE LYMPHOCYTES (AUTO) 1.6 10^3/uL (0.5-4.7); ABSOLUTE NEUT (AUTO) 11.5 10^3/uL (1.7-8.2); BASOPHILS % (AUTO) 0.5 % (0-2); EOSINOPHILS % (AUTO) 0.4 % (0-6); HEMATOCRIT 28.5 % (36.0-47.0); HEMOGLOBIN 9.6 g/dL (12.0-15.5); HGB HCT DIFFERENCE 0.3; LYMPHOCYTES % (AUTO) 11.5 % (13-45); MEAN CORPUSCULAR HGB CONC 33.9 g/dL (32.0-36.0); MEAN CORPUSCULAR VOLUME 80 fl (80-97); RED BLOOD COUNT 3.57 10^6/uL (3.72-5.28); RED CELL DISTRIBUTION WIDTH 14.4 % (11.5-14.0); SEGMENTED NEUTROPHILS % (AUTO) 80.6 % (42-78); WHITE BLOOD COUNT 14.2 10^3/uL (4.0-10.5)
[2017-06-18 05:55] LABS: ANION GAP 12 (5-19); BLOOD UREA NITROGEN 16 mg/dL (7-20); CALCIUM 9.1 mg/dL (8.4-10.2); CARBON DIOXIDE 19 mmol/L (22-30); CHLORIDE 108 mmol/L (98-107); CREATININE RESULT 0.99 mg/dL (0.52-1.25); GLUCOSE 151 mg/dL (75-110); POTASSIUM 4.9 mmol/L (3.6-5.0); SODIUM 138.5 mmol/L (137-145)
--- NOTE | 2017-06-18 08:05 | EKG REPORT ---
SEVERITY:- ABNORMAL ECG - SINUS RHYTHM LEFT ANTERIOR FASCICULAR BLOCK : Confirmed by: Colby Moore MD 18-Jun-2017 08:03:48
--- NOTE | 2017-06-18 08:32 | PDOC H&P ---
History of Present Illness Admission Date/PCP: 06/17/17 19:27 LEATHA DUNN MD Patient complains of: Left foot wound History of Present Illness: MALGORZATA SOSA is a 77 year old female Patients came to the emergency department from the wound care for the further evaluation of left foot septic wound from the diabetic ischemia with the recent evaluations done by the vascular surgery at the [place]. The patient was seen at the advanced wound center today by Dr. Real who is been following her for some time. The patient has a known left posterior lateral foot wound related to diabetic infection and ischemic neuropathy. Patient is a 5 day status post arteriogram by Dr. Andrea in [place]. I spoke with Dr. Andrea on the phone this evening who stated that the patient's inflow at the SFA and popliteal arteries is acceptable, however her reconstitution at the ankle and beyond his pathetic; there is no opportunity for revascularization distally. Patient evaluated in the emergency department with a septic left foot , foul smelling and surgery was consulted. According to patient she has not walked in over 2 months although I cannot verify this report. Apparently she has chronic back pain obesity and has walk with a walker in the past. When I saw the patient in the floor patients denied any chest pain denied any shortness of the breath. Patients denied any history of the heart disease No significant history of the obesity and a chronic back pain and currently see a neurosurgeon as outpatient and all conservative management Past Medical History Cardiac Medical History: Reports: Hyperlipidema, Hypertension, Peripheral Vascular Disease EENT Medical History: Reports: Eyes - Glaucoma Endocrine Medical History: Reports: Diabetes Mellitus Type 1, Diabetes Mellitus Type 2 GI Medical History: Reports: Gastroesophageal Reflux Disease Musculoskeltal Medical History: Reports: Arthritis Psychiatric Medical History: Denies: Depression Past Surgical History Past Surgical History: Reports: Cholecystectomy, Other - Midline incision for uncertain reason Social History Smoking Status: Never Smoker Frequency of Alcohol Use: None Hx Recreational Drug Use: No Drugs: None Hx Prescription Drug Abuse: No Family History Family History: Reviewed & Not Pertinent, Arthritis, CAD, DM, Hyperlipidemia, Hypertension. denies: COPD, CVA, Malignancy, Thyroid Disfunction Parental Family History Reviewed: Yes Children Family History Reviewed: Yes Sibling(s) Family History Reviewed.: Yes Medication/Allergy Home Medications: Aspirin [Aspirin 81 mg Chewable Tablet] 81 mg PO DAILY 06/17/17 Hydrochlorothiazide 25 mg PO DAILY 06/17/17 Insulin Glargine,Hum.rec.anlog [Lantus Insulin 100 Unit/1 ml 10 ml] 40 unit SUBCUT DAILY 06/17/17 Insulin Lispro [Humalog] 15 unit SQ TID 06/17/17 Latanoprost 1 drop OU QHS 06/17/17 Losartan Potassium 50 mg PO DAILY 06/17/17 Meloxicam [Mobic 7.5 mg Tablet] 7.5 mg PO DAILY 06/17/17 Metformin HCl [Glucophage] 1,000 mg PO BID 06/17/17 Simvastatin [Zocor 20 mg Tablet] 20 mg PO DAILY 06/17/17 Timolol Maleate [Timoptic 0.25% Oph Soln 5 Ml] 2 drop OU BID 06/17/17 Allergies/Adverse Reactions: No Known Allergies Allergy (Verified 06/17/17 15:06) Review of Systems Constitutional: ABSENT: chills, fever(s), headache(s), weight gain, weight loss Eyes: ABSENT: visual disturbances Ears: ABSENT: hearing changes Cardiovascular: ABSENT: chest pain, dyspnea on exertion, edema, orthropnea, palpitations Respiratory: ABSENT: cough, hemoptysis Gastrointestinal: ABSENT: abdominal pain, constipation, diarrhea, hematemesis, hematochezia, nausea, vomiting Genitourinary: ABSENT: dysuria, hematuria Musculoskeletal: ABSENT: joint swelling Integumentary: ABSENT: rash, wounds Neurological: ABSENT: abnormal gait, abnormal speech, confusion, dizziness, focal weakness, syncope Psychiatric: ABSENT: anxiety, depression, homidical ideation, suicidal ideation Endocrine: ABSENT: cold intolerance, heat intolerance, menstrual abnormalities, polydipsia, polyuria Hematologic/Lymphatic: ABSENT: easy bleeding, easy bruising, lymphadenopathy Physical Exam Vital Signs: Temp Pulse Resp BP Pulse Ox 99.5 F 80 16 127/52 H 96 06/18/17 03:23 06/18/17 03:23 06/18/17 03:23 06/18/17 03:23 06/18/17 03:23 Intake & Output 06/17/17 06/18/17 06/19/17 06:59 06:59 06:59 Intake Total 240 Output Total 1 Balance 239 Weight 110.6 kg General appearance: PRESENT: no acute distress, well-developed, well-nourished Head exam: PRESENT: atraumatic, normocephalic Eye exam: PRESENT: conjunctiva pink, EOMI, PERRLA. ABSENT: scleral icterus Ear exam: PRESENT: normal external ear exam Mouth exam: PRESENT: moist, tongue midline Neck exam: PRESENT: full ROM. ABSENT: carotid bruit, JVD, lymphadenopathy, thyromegaly Respiratory exam: PRESENT: clear to auscultation caity Cardiovascular exam: PRESENT: RRR. ABSENT: diastolic murmur, rubs, systolic murmur Pulses: PRESENT: normal dorsalis pedis pul, +2 pedal pulses bilateral Vascular exam: PRESENT: normal capillary refill GI/Abdominal exam: PRESENT: normal bowel sounds, soft. ABSENT: distended, guarding, mass, organolmegaly, rebound, tenderness Rectal exam: PRESENT: deferred Extremities exam: ABSENT: pedal edema Additional comments: On the left foot the dressing is intact but very foul-smelling wound Neurological exam: PRESENT: alert, awake, oriented to person, oriented to place , oriented to time, oriented to situation, CN II-XII grossly intact. ABSENT: motor sensory deficit Psychiatric exam: PRESENT: appropriate affect, normal mood. ABSENT: homicidal ideation, suicidal ideation Skin exam: PRESENT: dry, intact, warm. ABSENT: cyanosis, rash Results Laboratory Results: 06/18/17 04:34 06/18/17 04:34 06/18/17 06/18/17 04:34 04:34 WBC 14.2 H RBC 3.57 L Hgb 9.6 L Hct 28.5 L MCV 80 MCH 27.0 MCHC 33.9 RDW 14.4 H Plt Count 341 Seg Neutrophils % 80.6 H Lymphocytes % 11.5 L Monocytes % 7.0 Eosinophils % 0.4 Basophils % 0.5 Absolute Neutrophils 11.5 H Absolute Lymphocytes 1.6 Absolute Monocytes 1.0 Absolute Eosinophils 0.1 Absolute Basophils 0.1 Sodium 138.5 Potassium 4.9 Chloride 108 H Carbon Dioxide 19 L Anion Gap 12 BUN 16 Creatinine 0.99 Est GFR ( Amer) > 60 Est GFR (Non-Af Amer) 55 L Glucose 151 H Calcium 9.1 Assessment & Plan - Diagnosis (1) Diabetic foot ulcers Qualifiers: Diabetic foot ulcer location: unspecified part of foot Diabetes mellitus type: type 2 Laterality: left Non-pressure ulcer stage: unspecified non-pressure ulcer stage Qualified Code(s): E11.621 - Type 2 diabetes mellitus with foot ulcer; L97.509 - Non-pressure chronic ulcer of other part of unspecified foot with unspecified severity Is this a current diagnosis for this admission?: YesPlan: Very extensive discussions with the Dr. Pearson patients probably need amputations because of there is no sign of any revascularizations as per discussed with the vascular surgeon in [place]. Very extensive discussions with the patient's and patients will think and discuss with her family todayContinues to IV antibiotic (2) Type 2 diabetes mellitus Qualifiers: Diabetes mellitus complication status: with diabetic arthropathy Is this a current diagnosis for this admission?: YesPlan: Continue sliding scale and continues to current medications (3) Hypertension Qualifiers: Hypertension type: essential hypertension Qualified Code(s): I10 - Essential (primary) hypertension Is this a current diagnosis for this admission?: YesPlan: Continues current medications (4) Hyperlipidemia Qualifiers: Hyperlipidemia type: unspecified Qualified Code(s): E78.5 - Hyperlipidemia, unspecified Is this a current diagnosis for this admission?: Yes (5) Obesity Qualifiers: Obesity type: unspecified obesity type Is this a current diagnosis for this admission?: YesPlan: Patient usually walk with the walker but since the left foot wound patient unable to walk much (6) Chronic back pain Qualifiers: Back pain location: low back pain Is this a current diagnosis for this admission?: YesPlan: Patients follow with the Neurosurgeon and is all conservative management (7) Peripheral vascular disease Is this a current diagnosis for this admission?: Yes (8) Ischemic neuropathy of left foot Is this a current diagnosis for this admission?: Yes (9) Leukocytosis Qualifiers: Leukocytosis type: unspecified Qualified Code(s): D72.829 - Elevated white blood cell count, unspecified Is this a current diagnosis for this admission?: YesPlan: From the sepsis from the wound start the patient on IV antibiotic follow with the surgery and get all the culture - Time Time Spent: 30 to 50 Minutes Medications reviewed and adjusted accordingly: Yes Anticipated discharge: SNF Within: Other - Inpatient Certification Medical Necessity: Need for IV Antibiotics, Need for Surgery Post Hospital Care: D/C Executive Secretary Social Welfare Documentation - Plan Summary Plan Summary: Very extensive discussions with the patient and other coordinate care with the general surgery and admit the patient and start the IV antibiotic and got the cardiac clearance
[2017-06-18] MEDS: METFORMIN HCL 500 MG TABLET PO SCH ×2 (08:42→16:57)
[2017-06-18] MEDS: IPRATROPIUM/ALBUTEROL 0.5-2.5 MG/3 ML AMPUL NEB SCH ×3 (08:44→20:09)
[2017-06-18] MEDS ORDERED: INSULIN LISPRO 15 UNIT SQ SCH (10:00)
[2017-06-18] MEDS: LOSARTAN POTASSIUM 50 MG TABLET PO SCH (10:08)
[2017-06-18] MEDS: ASPIRIN 81 MG TABLET, CHEWABLE PO SCH (10:11)
[2017-06-18] MEDS: INSULIN GLARGINE,HUM.REC.ANLOG 1,000 UNIT/10 ML UNIT SUBCUT SCH (10:15)
[2017-06-18] MEDS: ENOXAPARIN SODIUM INJ 40 MG/0.4 ML DISP.SYRIN SUBCUT SCH (10:15)
[2017-06-18] MEDS: INSULIN LISPRO 100 UNIT/ML 3 ML VIAL SUBCUT SCH ×3 (10:15→18:02)
[2017-06-18] MEDS: HYDROCHLOROTHIAZIDE 25 MG TABLET PO SCH (10:17)
[2017-06-18] MEDS: TIMOLOL MALEATE 0.25% OPH SOLN 5 ML OU SCH ×2 (10:18→18:01)
--- NOTE | 2017-06-18 10:23 | PROGRESS NOTE E ---
Progress Note NAME: MALGORZATA SOSA : 1940 AGE: 77Y DATE: 06/18/2017 ROOM: 404 SUBJECTIVE: Patient was seen at bedside, complaining of pains along the left foot. OBJECTIVE: Still has some necrotic tissue with inflammation along the left heel and lateral part of the foot. Unable to palpate pulses. The right heel also has some dry necrotic skin but it is tender. I told the nurse to put some heel pads to prevent pressure on the right heel. PLAN: Patient is not happy with the decision to amputate the left foot. I told her that there is really no alternative and the possibility of doing below-knee amputation is planned for tomorrow, and if the blood supply below the knee is not adequate then she might need an [id number] amputation. She is still trying to talk to her family about this. I will keep her n.p.o. from midnight for possible left below-knee amputation tomorrow to be done by Dr. Pearson. DICTATING PHYSICIAN: THU BARNEY M.D. [id number] PHY#: [id number] ID: [id number] JOB#: [id number] ACCT: [id number] cc: >
[2017-06-18] MEDS: OXYCODONE-ACETAMINOPHEN 5-325 MG TABLET PO PRN ×2 (12:05→18:00)
--- NOTE | 2017-06-18 14:22 | Progress Note ---
Provider Note Provider Note: Patient seen on morning rounds. Patient in need for left foot amputation. Patient denied any prior history of myocardial infarction, angina, congestive heart failure. Patient is physically inactive. A 2D echo performed several months ago showed normal LVEF. Patient denying any chest pain or shortness of breath. Patient does not exercise. Patient noted to be not in any clinical CHF. Twelve-lead EKG obtained showed no normal sinus rhythm without any significant ST-T wave changes. Patient chest x-ray reviewed and reported to have no CHF. At this point I feel patient is acceptable risk for amputation surgery which are considered on the low risk side. Therefore cleared for surgery. Will follow patient for postoperative care.
[2017-06-18] MEDS: ERTAPENEM SODIUM 1 GM in NORMAL SALINE 50 ML IV SCH (18:13)
--- NOTE | 2017-06-18 19:21 | XCELERA REPORT ---
[address] [address] Transthoracic Echocardiogram Report Name: MALGORZATA SOSA Age: 77 yrs Gender: Female : 1940 Patient Status: Inpatient Patient Location: [id number]\S\404\S\B Study Date: 06/18/2017 02:01 PM Height: 60 in Weight: 243 lb BSA: 2.0 m2 Procedure: A complete two-dimensional transthoracic echocardiogram was performed (2D, M-mode, spectral and color flow Doppler). The study was technically difficult with many images being suboptimal in quality. Reason For Study: dm/htn/pre op Ordering Physician: LEATHA DUNN Interpretation Summary The left ventricular ejection fraction is normal. There is mild concentric left ventricular hypertrophy. Doppler measurements suggest pseudonormalized left ventricular relaxation, which is associated with grade II/IV or mild to moderate diastolic dysfunction The left ventricle is grossly normal size. Wall motion cannot be accurately commented on, but no definite regional wall motion abnormalities noted. Borderline right ventricular enlargement. The right ventricular systolic function is normal. The right atrium is normal. The left atrium is mildly dilated. There is no mitral valve stenosis. There is a trace amount of mitral regurgitation There is no aortic valve stenosis No aortic regurgitation is present. There is a mild amount of tricuspid regurgitation There is moderate pulmonary hypertension by echo Right ventricular systolic pressure is estimated to be elevated at 50- 60mmHg. The aortic root is not well visualized but is probably normal size. The inferior vena cava appeared normal and decreased > 50% with respiration (RAP 5-10 mmHg) There is no pericardial effusion. MMode/2D Measurements \T\ Calculations RVDd: 2.9 cm LVIDd: 4.3 cm FS: 35.9 % Ao root diam: 3.0 cm IVSd: 1.1 cm LVIDs: 2.7 cm EDV(Teich): 81.3 ml LVPWd: 1.1 cm ESV(Teich): 27.8 ml Ao root area: 7.2 cm2 EF(Teich): 65.9 % Doppler Measurements \T\ Calculations MV E max keke: MV dec slope: Ao V2 max: LV V1 max P.9 cm/sec 189.0 cm/sec 7.3 mmHg MV A max keke: 391.9 cm/sec2 Ao max PG: LV V1 max: 157.8 cm/sec MV dec time: 14.3 mmHg 135.2 cm/sec MV E/A: 0.73 0.29 sec PA V2 max: PI end-d keke: TR max keke: 99.1 cm/sec 139.9 cm/sec 352.3 cm/sec PA max P.9 mmHg TR max P.0 mmHg Left Ventricle The left ventricle is grossly normal size. There is mild concentric left ventricular hypertrophy. The left ventricular ejection fraction is normal. Doppler measurements suggest pseudonormalized left ventricular relaxation, which is associated with grade II/IV or mild to moderate diastolic dysfunction. Wall motion cannot be accurately commented on, but no definite regional wall motion abnormalities noted. Right Ventricle Borderline right ventricular enlargement. The right ventricular systolic function is normal. Atria The right atrium is normal. The left atrium is mildly dilated. Interarterial septum not well visualized and not well dopplered. Cannot comment on ASD/PFO presence. Mitral Valve The mitral valve is grossly normal. There is no mitral valve stenosis. There is a trace amount of mitral regurgitation. Aortic Valve The aortic valve is mildly calcified. The aortic valve opens well. There is no aortic valve stenosis. No aortic regurgitation is present. Tricuspid Valve The tricuspid valve is not well visualized, but is grossly normal. There is no tricuspid stenosis. There is a mild amount of tricuspid regurgitation. There is moderate pulmonary hypertension by echo. Right ventricular systolic pressure is estimated to be elevated at 50-60mmHg. Pulmonic Valve The pulmonic valve is not well visualized. Great Vessels The aortic root is not well visualized but is probably normal size. The inferior vena cava appeared normal and decreased > 50% with respiration (RAP 5-10 mmHg). Effusions There is no pericardial effusion. : LEATHA DUNN > Sagar Chaidez
[2017-06-18] MEDS ORDERED: NORMAL SALINE 250 ML IV PRN (19:46)
[2017-06-18] MEDS ORDERED: GLUCAGON,HUMAN RECOMB 1 MG INJ SUBCUT PRN (19:48)
[2017-06-18] MEDS ORDERED: DEXTROSE 50%-WATER 25 GM/50 ML DISP.SYRIN IV PRN ×2 (19:48)
[2017-06-18] MEDS ORDERED: DEXTROSE 40% GEL 15 GM TUBE PO PRN ×2 (19:48)
--- NOTE | 2017-06-18 20:06 | PDOC CONSULTATION ---
Consultation Consult Date: 06/18/17 Attending physician:: LEATHA DUNN Consult reason:: Preop cardiovascular examination History of Present Illness Admission Date/PCP: 06/17/17 19:27 LEATHA DUNN MD Patient complains of: Preop cardiovascular evaluation History of Present Illness: MALGORZATA SOSA is a 77 year old female patients admitted from the emergency department through the wound care department for the further evaluation of left foot septic wound from the diabetic ischemia with the recent evaluations done by the vascular surgery at the [place]. The patient was seen [facility] the [facility] today by Dr. Real who is been following her for some time. The patient has a known left posterior lateral foot wound related to diabetic infection and ischemic neuropathy. Patient is a 5 day status post arteriogram by Dr. Andrea in [place]. Patient had recent vascular evaluation and is felt to have a non-revascularizable left foot therefore amputation is planned for tomorrow. Patient denied any prior history of myocardial infarction, congestive heart failure, angina. Her physical activity is however limited. Past Medical History Cardiac Medical History: Reports: Hyperlipidema, Hypertension, Peripheral Vascular Disease EENT Medical History: Reports: Eyes - Glaucoma Endocrine Medical History: Reports: Diabetes Mellitus Type 1, Diabetes Mellitus Type 2 GI Medical History: Reports: Gastroesophageal Reflux Disease Musculoskeltal Medical History: Reports: Arthritis Psychiatric Medical History: Denies: Depression Past Surgical History Past Surgical History: Reports: Cholecystectomy, Other - Midline incision for uncertain reason Social History Information Source: Patient Smoking Status: Never Smoker Frequency of Alcohol Use: None Hx Recreational Drug Use: No Drugs: None Hx Prescription Drug Abuse: No - Advance Directive Resuscitation Status: Full Code Family History Family History: Reviewed & Not Pertinent, Arthritis, CAD, DM, Hyperlipidemia, Hypertension. denies: COPD, CVA, Malignancy, Thyroid Disfunction Parental Family History Reviewed: Yes Children Family History Reviewed: Yes Sibling(s) Family History Reviewed.: Yes Medication/Allergy Home Medications: Aspirin [Aspirin 81 mg Chewable Tablet] 81 mg PO DAILY 06/17/17 Hydrochlorothiazide 25 mg PO DAILY 06/17/17 Insulin Glargine,Hum.rec.anlog [Lantus Insulin 100 Unit/1 ml 10 ml] 40 unit SUBCUT DAILY 06/17/17 Insulin Lispro [Humalog] 15 unit SQ TID 06/17/17 Latanoprost 1 drop OU QHS 06/17/17 Losartan Potassium 50 mg PO DAILY 06/17/17 Meloxicam [Mobic 7.5 mg Tablet] 7.5 mg PO DAILY 06/17/17 Metformin HCl [Glucophage] 1,000 mg PO BID 06/17/17 Simvastatin [Zocor 20 mg Tablet] 20 mg PO DAILY 06/17/17 Timolol Maleate [Timoptic 0.25% Oph Soln 5 Ml] 2 drop OU BID 06/17/17 Allergies/Adverse Reactions: No Known Allergies Allergy (Verified 06/17/17 15:06) Review of Systems Review of Systems: Please see history of present illness and past medical history as wall. Constitutional: No fever or chills reported. Head : No recent chronic headaches, recent head injury. Eyes: No recent eye pain, diplopia, redness, discharge, acute visual changes. Ears: No recent chronic ear pain, acute hearing loss, ear discharge. Oral cavity: No recent ulcerations, bleeding, oral cavity discomfort. Neck: No recent acute neck pain reported. Hematologic: No recent easy bruising or bleeding or hematologic malignancy reported. Lymphatic: No recent lymphatic malignancy, chronic lymphadenopathy reported yet Cardiovascular system review: See history of present illness. Respiratory system review: No recent chronic cough, hemoptysis, blood clots in the lungs reported. Mild Shortness of breath on exertion Gastrointestinal system review: Negative for any recent acute or chronic abdominal pain, hematemesis, melena, recent change in bowel habits. Genitourinary system review: No recent acute or chronic hematuria, flank pain, UTI etc. reported. Skin system review: Negative for any recent abnormal bruising, no rash, no pruritus reported. Neurologic: No prior history of strokes, mini strokes, seizure disorder. Psychologic: No history of major psychosis or major depression reported. Musculoskeletal: Minor aches and pains reported. No acute joint swelling reported. Difficulty ambulation because of bilateral leg ulcers and also history of bilateral knee arthritis. Endocrine: No recent polyuria, polydipsia, recent heat or cold intolerance. Physical Exam Vital Signs: Temp Pulse Resp BP Pulse Ox 99.0 F 77 19 121/45 L 98 06/18/17 11:51 06/18/17 11:51 06/18/17 11:51 06/18/17 11:51 06/18/17 11:51 Intake & Output 07/06/18/17 06/19/17 06:59 06:59 06:59 Intake Total 240 Output Total 1 Balance 239 Weight 110.6 kg Exam: GENERAL: well-nourished and in no acute distress. Alert and oriented x3 HEAD: Atraumatic, normocephalic. EYES: Pupils equal round and reactive to light, extraocular movements intact, sclera anicteric, conjunctiva are normal. ENT: TMs normal, nares patent, oropharynx clear without exudates. Moist mucous membranes. No oral ulcerations or bleeding gums noted NECK: supple without lymphadenopathy. Trachea is central. No cervical or axillary lymphadenopathy noted. Carotids are 2+, JVD WNL LUNGS: Respiration seems nonlabored, no significant accessory muscle action noted. Breath sounds clear to auscultation bilaterally and equal noted. No wheezes rales or rhonchi noted. No significant dullness noted on percussion. CHEST: Palpation of the chest wall shows no significant chest wall tenderness. No other significant abnormalities noted. 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 ABDOMEN: Soft, no significant tenderness appreciated, normoactive bowel sounds. No guarding, no rebound. No rigidity noted . No masses appreciated. EXTREMITIES: Pedal pulses are 1-2+, no calf tenderness noted. No clubbing or cyanosis.trace to 1+ pedal edema noted NEUROLOGICAL: Focused neurological exam showed no significant neurologic deficit. Normal speech, no focal weakness appreciated. PSYCH: Normal mood, normal affect. Judgment and insight within normal limits. SKIN: No significant ecchymosis, rash, leg ulcers noted both feet left more than right. MUSCULOSKELETAL EXAM: No significant joint swelling noted. Results Laboratory Results: 06/18/17 04:34 06/18/17 04:34 06/18/17 06/18/17 04:34 04:34 WBC 14.2 H RBC 3.57 L Hgb 9.6 L Hct 28.5 L MCV 80 MCH 27.0 MCHC 33.9 RDW 14.4 H Plt Count 341 Seg Neutrophils % 80.6 H Lymphocytes % 11.5 L Monocytes % 7.0 Eosinophils % 0.4 Basophils % 0.5 Absolute Neutrophils 11.5 H Absolute Lymphocytes 1.6 Absolute Monocytes 1.0 Absolute Eosinophils 0.1 Absolute Basophils 0.1 Sodium 138.5 Potassium 4.9 Chloride 108 H Carbon Dioxide 19 L Anion Gap 12 BUN 16 Creatinine 0.99 Est GFR ( Amer) > 60 Est GFR (Non-Af Amer) 55 L Glucose 151 H Calcium 9.1 EKG Comments: Sinus rhythm, no acute ST-T wave changes noted. Status: Image reviewed by hi - 2D echo reviewed. It shows normal LVEF but moderate pulmonary hypertension and mildly enlarged right ventricle. Assessment & Plan - Diagnosis (1) Preoperative cardiovascular examination Is this a current diagnosis for this admission?: Yes (2) Diabetic foot ulcers Qualifiers: Diabetic foot ulcer location: unspecified part of foot Diabetes mellitus type: type 2 Laterality: left Non-pressure ulcer stage: unspecified non-pressure ulcer stage Qualified Code(s): E11.621 - Type 2 diabetes mellitus with foot ulcer; L97.509 - Non-pressure chronic ulcer of other part of unspecified foot with unspecified severity Is this a current diagnosis for this admission?: Yes (3) Hyperlipidemia Qualifiers: Hyperlipidemia type: unspecified Qualified Code(s): E78.5 - Hyperlipidemia, unspecified Is this a current diagnosis for this admission?: Yes (4) Hypertension Qualifiers: Hypertension type: essential hypertension Qualified Code(s): I10 - Essential (primary) hypertension Is this a current diagnosis for this admission?: Yes (5) Peripheral vascular disease Is this a current diagnosis for this admission?: Yes (6) Type 2 diabetes mellitus Qualifiers: Diabetes mellitus complication status: with other specified complication Diabetes mellitus long-term insulin use: unspecified intermission coordinator insulin use status Qualified Code(s): E11.69 - Type 2 diabetes mellitus with other specified complication Is this a current diagnosis for this admission?: Yes - Notes Notes: Preop clearance: Patient in sinus rhythm. Patient has had no angina or angina equivalent symptoms. Patient not in clinical CHF. Patient cleared for surgery with average risk. Patient does have significant PVD but amputation surgery is considered to be on the lower risk side. We'll be happy to take care of any cardiac problem as it arises. Patient felt to be at acceptable risk for her age. Diabetes: Recommend good control of blood sugar. However should avoid any hypoglycemia. Patient being expertly managed by primary care MDerian. Hyperlipidemia: LDL goal is less than 70. Recommend statin therapy at least intermediate or high dose, of high potency status. Periodic lipid panel and liver panel is indicated. Patient to report any significant muscle discomfort or other side effects. Hypertension: Reasonably well controlled. Blood pressure goal in this patient is 135/85 or less. This was discussed with the patient. Currently blood pressure under reasonable control. Better medication for this patient are JEREMIAH inhibitor/ARB/beta pau etc. discussed side effects of uncontrolled hypertension and also severe hypotension. PVD:Based on previous evaluation, patient has significant PVD. Further evaluation can be performed as an outpatient. Pulmonary hypertension: Moderate probably related to underlying sleep apnea and obesity hypoventilation syndrome and also secondary to chronic diastolic dysfunction. Patient will benefit from a sleep study and evaluation for any nocturnal hypo-hypoxemia which can be provided through my office. - Time Time Spent: 50 to 70 Minutes - CODE STATUS was discussed, patient remains full code. Surrogate decision-maker unchanged. Multiple medical problems were addressed. More than 50% of the time spent coordinating care, discussing management plans with involved caregivers. Management plans discussed with involved personnels. Medical decision making was of moderate to high complexity , patient's has multiple comorbidities. Medications reviewed and adjusted accordingly: Yes
[2017-06-18] MEDS: POTASSI CL 20 MEQ/NS 1L 1,000 ML IV PRN (20:29)
[2017-06-18] MEDS: LATANOPROST 0.005% OPH SOLN 2.5 ML OU SCH (21:20)
[2017-06-18] MEDS: HYDROMORPHONE HCL INJ/PF 2 MG/ML AMPULE IV PRN (22:08)
[2017-06-19] MEDS: OXYCODONE-ACETAMINOPHEN 5-325 MG TABLET PO PRN (01:27)
[2017-06-19] MEDS: HYDROMORPHONE HCL INJ/PF 2 MG/ML AMPULE IV PRN ×3 (04:55→18:45)
[2017-06-19] MEDS: POTASSI CL 20 MEQ/NS 1L 1,000 ML IV PRN (04:56)
[2017-06-19 05:47] LABS: ABSOLUTE BASOPHILS # (AUTO) 0.1 10^3/uL (0.0-0.2); ABSOLUTE EOSINOPHILS # (AUTO) 0.2 10^3/uL (0.0-0.6); ABSOLUTE LYMPHOCYTES (AUTO) 1.9 10^3/uL (0.5-4.7); ABSOLUTE NEUT (AUTO) 10.8 10^3/uL (1.7-8.2); BASOPHILS % (AUTO) 0.4 % (0-2); EOSINOPHILS % (AUTO) 1.4 % (0-6); HEMATOCRIT 29.5 % (36.0-47.0); HEMOGLOBIN 9.7 g/dL (12.0-15.5); HGB HCT DIFFERENCE -0.4; LYMPHOCYTES % (AUTO) 13.6 % (13-45); MEAN CORPUSCULAR HEMOGLOBIN 26.8 pg (27.0-33.4); MEAN CORPUSCULAR HGB CONC 32.9 g/dL (32.0-36.0); MEAN CORPUSCULAR VOLUME 81 fl (80-97); MONOCYTES % (AUTO) 7.4 % (3-13); RED BLOOD COUNT 3.63 10^6/uL (3.72-5.28); RED CELL DISTRIBUTION WIDTH 14.8 % (11.5-14.0); SEGMENTED NEUTROPHILS % (AUTO) 77.2 % (42-78)
[2017-06-19 05:57] LABS: ANION GAP 9 (5-19); BLOOD UREA NITROGEN 18 mg/dL (7-20); CARBON DIOXIDE 20 mmol/L (22-30); CHLORIDE 111 mmol/L (98-107); CREATININE RESULT 1.25 mg/dL (0.52-1.25); GLUCOSE 141 mg/dL (75-110); POTASSIUM 4.8 mmol/L (3.6-5.0); SODIUM 140.3 mmol/L (137-145)
[2017-06-19] MEDS: IPRATROPIUM/ALBUTEROL 0.5-2.5 MG/3 ML AMPUL NEB SCH ×3 (08:20→19:46)
--- NOTE | 2017-06-19 08:31 | PDOC PROGRESS REPORT ---
Subjective Progress Note for:: 06/19/17 Subjective:: Patient is currently doing fair. Patient's denied any chest pain denied any shortness of the breath.Patient seen by the cardiology and cleared for the surgery . Patient seen by the surgeon and very extensive discussions with the family agree with the below knee amputations Patient's otherwise denied any complaint this morning Physical Exam Vital Signs: Temp Pulse Resp BP Pulse Ox 99.0 F 75 17 122/55 L 98 06/19/17 01:09 06/19/17 01:09 06/19/17 01:09 06/19/17 01:09 06/19/17 01:09 Intake & Output 06/18/17 06/19/17 06/20/17 06:59 06:59 06:59 Intake Total 240 1260 Output Total 1 400 Balance 239 860 Weight 110.6 kg 110.5 kg General appearance: PRESENT: no acute distress Eye exam: PRESENT: PERRLA Neck exam: ABSENT: JVD Respiratory exam: PRESENT: clear to auscultation caity Cardiovascular exam: PRESENT: +S1, +S2 GI/Abdominal exam: PRESENT: normal bowel sounds, soft. ABSENT: tenderness Additional comments: Left leg wound with a foul-smelling Neurological exam: PRESENT: alert, awake, oriented to person, oriented to place , oriented to time, oriented to situation Psychiatric exam: PRESENT: depressed Skin exam: PRESENT: dry Results Laboratory Results: 06/19/17 05:14 06/19/17 05:14 06/18/17 06/19/17 06/19/17 20:24 05:14 05:14 WBC 14.0 H RBC 3.63 L Hgb 9.7 L Hct 29.5 L MCV 81 MCH 26.8 L MCHC 32.9 RDW 14.8 H Plt Count 365 Seg Neutrophils % 77.2 Lymphocytes % 13.6 Monocytes % 7.4 Eosinophils % 1.4 Basophils % 0.4 Absolute Neutrophils 10.8 H Absolute Lymphocytes 1.9 Absolute Monocytes 1.0 Absolute Eosinophils 0.2 Absolute Basophils 0.1 Sodium 140.3 Potassium 4.8 Chloride 111 H Carbon Dioxide 20 L Anion Gap 9 BUN 18 Creatinine 1.25 Est GFR ( Amer) 50 L Est GFR (Non-Af Amer) 42 L Glucose 141 H Calcium 9.0 Blood Type O POSITIVE Antibody Screen NEGATIVE Assessment & Plan - Diagnosis (1) Diabetic foot ulcers Qualifiers: Diabetic foot ulcer location: unspecified part of foot Diabetes mellitus type: type 2 Laterality: left Non-pressure ulcer stage: unspecified non-pressure ulcer stage Qualified Code(s): E11.621 - Type 2 diabetes mellitus with foot ulcer; L97.509 - Non-pressure chronic ulcer of other part of unspecified foot with unspecified severity Is this a current diagnosis for this admission?: YesPlan: Because of the patient was significant to ischemic issues according to the surgeons patients need a below knee amputations and see how it goes and may be need above knee amputations. 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 Qualified Code(s): E11.69 - Type 2 diabetes mellitus with other specified complication Is this a current diagnosis for this admission?: YesPlan: Continue sliding scale and continues to current medications (3) Hypertension Qualifiers: Hypertension type: essential hypertension Qualified Code(s): I10 - Essential (primary) hypertension Is this a current diagnosis for this admission?: YesPlan: Continues current medications (4) Hyperlipidemia Qualifiers: Hyperlipidemia type: unspecified Qualified Code(s): E78.5 - Hyperlipidemia, unspecified Is this a current diagnosis for this admission?: Yes (5) Obesity Qualifiers: Obesity type: unspecified obesity type Is this a current diagnosis for this admission?: YesPlan: Patient usually walk with the walker but since the left foot wound patient unable to walk much (6) Chronic back pain Qualifiers: Back pain location: low back pain Is this a current diagnosis for this admission?: YesPlan: Patients follow with the Neurosurgeon and is all conservative management (7) Peripheral vascular disease Is this a current diagnosis for this admission?: Yes (8) Ischemic neuropathy of left foot Is this a current diagnosis for this admission?: Yes (9) Leukocytosis Qualifiers: Leukocytosis type: unspecified Qualified Code(s): D72.829 - Elevated white blood cell count, unspecified Is this a current diagnosis for this admission?: Yes - Time Time Spent with patient: 15-24 minutes Medications reviewed and adjusted accordingly: Yes Anticipated discharge: SNF Within: Other - Inpatient Certification Medical Necessity: Need Close Monitoring Due to Risk of Patient Decompensation, Need for IV Antibiotics, Need for Surgery 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
[2017-06-19] MEDS: INSULIN GLARGINE,HUM.REC.ANLOG 1,000 UNIT/10 ML UNIT SUBCUT SCH (09:53)
[2017-06-19] MEDS: INSULIN LISPRO 100 UNIT/ML 3 ML VIAL SUBCUT SCH ×2 (09:53→16:15)
[2017-06-19] MEDS: METFORMIN HCL 500 MG TABLET PO SCH ×2 (09:53→16:15)
[2017-06-19] MEDS ORDERED: PHENYLEPHRINE HCL INJ/PF 10 MG/1 ML SDV ONE (10:28)
[2017-06-19] MEDS ORDERED: LIDOCAINE 2% INJ-PF (20 MG/ML) 10 ML AMPUL ONE (10:28)
[2017-06-19] MEDS ORDERED: ONDANSETRON HCL INJ/PF 4 MG/2 ML SDV ONE (10:28)
[2017-06-19] MEDS ORDERED: KETOROLAC TROMETHAMINE 60 MG/2 ML SDV ONE (10:28)
[2017-06-19] MEDS: ENOXAPARIN SODIUM INJ 40 MG/0.4 ML DISP.SYRIN SUBCUT SCH (10:31)
[2017-06-19] MEDS: LOSARTAN POTASSIUM 50 MG TABLET PO SCH (10:31)
[2017-06-19] MEDS: HYDROCHLOROTHIAZIDE 25 MG TABLET PO SCH (10:31)
[2017-06-19] MEDS: ASPIRIN 81 MG TABLET, CHEWABLE PO SCH (10:31)
[2017-06-19] MEDS: AZTREONAM 1 GM in DEXTROSE 5%-WATER 50 ML IV SCH ×2 (10:38→18:46)
[2017-06-19] MEDS: TIMOLOL MALEATE 0.25% OPH SOLN 5 ML OU SCH ×2 (10:39→18:46)
--- NOTE | 2017-06-19 10:52 | PDOC PROGRESS REPORT ---
Subjective Progress Note for:: 06/19/17 Subjective:: No change in patient's status since yesterday. She is concerned about losing her left leg but informed that there are no other option given that revascularization is not feasible. 2D echo results were discussed with the patient which shows moderate pulmonary hypertension and also RV enlargement. Pt is denying any chest arm or neck discomfort. Patient denying any PND, orthopnea. Patient denied any sustained palpitations, dizziness, syncope, near syncope. Patient denying any fever chills. Patient denying any other significant discomfort. Patient is maintaining sinus rhythm. Review of systems: Rest review of systems negative. Medications: Medications have been reviewed. Physical Exam Vital Signs: Temp Pulse Resp BP Pulse Ox 98.5 F 70 18 122/50 L 97 06/19/17 08:12 06/19/17 08:21 06/19/17 08:21 06/19/17 08:12 06/19/17 08:21 Intake & Output 06/18/17 06/19/17 06/20/17 06:59 06:59 06:59 Intake Total 240 1260 Output Total 1 400 Balance 239 860 Weight 110.6 kg 110.5 kg Exam: GENERAL: well-nourished and in no acute distress. Alert and oriented x3 HEAD: Atraumatic, normocephalic. EYES: Pupils equal round and reactive to light, extraocular movements intact, sclera anicteric, conjunctiva are normal. ENT: TMs normal, nares patent, oropharynx clear without exudates. Moist mucous membranes. No oral ulcerations or bleeding gums noted NECK: supple without lymphadenopathy. Trachea is central. No cervical or axillary lymphadenopathy noted. Carotids are 2+, JVD WNL LUNGS: Respiration seems nonlabored, no significant accessory muscle action noted. Breath sounds clear to auscultation bilaterally and equal noted. No wheezes rales or rhonchi noted. No significant dullness noted on percussion. CHEST: Palpation of the chest wall shows no significant chest wall tenderness. No other significant abnormalities noted. 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 ABDOMEN: Soft, no significant tenderness appreciated, normoactive bowel sounds. No guarding, no rebound. No rigidity noted . No masses appreciated. EXTREMITIES: Pedal pulses are 1-2+, no calf tenderness noted. No clubbing or cyanosis.trace to 1+ pedal edema noted NEUROLOGICAL: Focused neurological exam showed no significant neurologic deficit. Normal speech, no focal weakness appreciated. PSYCH: Normal mood, normal affect. Judgment and insight within normal limits. SKIN: No significant ecchymosis, ulcerations noted both legs which are covered by bandage. MUSCULOSKELETAL EXAM: No significant joint swelling noted. Results Laboratory Results: 06/19/17 05:14 06/19/17 05:14 06/18/17 06/19/17 06/19/17 20:24 05:14 05:14 WBC 14.0 H RBC 3.63 L Hgb 9.7 L Hct 29.5 L MCV 81 MCH 26.8 L MCHC 32.9 RDW 14.8 H Plt Count 365 Seg Neutrophils % 77.2 Lymphocytes % 13.6 Monocytes % 7.4 Eosinophils % 1.4 Basophils % 0.4 Absolute Neutrophils 10.8 H Absolute Lymphocytes 1.9 Absolute Monocytes 1.0 Absolute Eosinophils 0.2 Absolute Basophils 0.1 Sodium 140.3 Potassium 4.8 Chloride 111 H Carbon Dioxide 20 L Anion Gap 9 BUN 18 Creatinine 1.25 Est GFR ( Amer) 50 L Est GFR (Non-Af Amer) 42 L Glucose 141 H Calcium 9.0 Blood Type O POSITIVE Antibody Screen NEGATIVE 06/17/17 22:45 Clean Catch Midstream Urine Culture - Final Mixed Skin. Possible Pathogen Assessment & Plan - Diagnosis (1) Preoperative cardiovascular examination Is this a current diagnosis for this admission?: Yes (2) Diabetic foot ulcers Qualifiers: Diabetic foot ulcer location: unspecified part of foot Diabetes mellitus type: type 2 Laterality: left Non-pressure ulcer stage: unspecified non-pressure ulcer stage Qualified Code(s): E11.621 - Type 2 diabetes mellitus with foot ulcer; L97.509 - Non-pressure chronic ulcer of other part of unspecified foot with unspecified severity Is this a current diagnosis for this admission?: Yes (3) Hyperlipidemia Qualifiers: Hyperlipidemia type: unspecified Qualified Code(s): E78.5 - Hyperlipidemia, unspecified Is this a current diagnosis for this admission?: Yes (4) Hypertension Qualifiers: Hypertension type: essential hypertension Qualified Code(s): I10 - Essential (primary) hypertension Is this a current diagnosis for this admission?: Yes (5) Peripheral vascular disease Is this a current diagnosis for this admission?: Yes (6) Type 2 diabetes mellitus Qualifiers: Diabetes mellitus complication status: with other specified complication Diabetes mellitus correction insulin use: unspecified correction insulin use status Qualified Code(s): E11.69 - Type 2 diabetes mellitus with other specified complication Is this a current diagnosis for this admission?: Yes - Notes Notes: Preop clearance: Patient cleared for surgery with acceptable risk. Diabetes: Recommend good control of blood sugar. However should avoid any hypoglycemia. Patient being expertly managed by primary care M.D. Hyperlipidemia: LDL goal is less than 70. Recommend statin therapy at least intermediate or high dose, of high potency status. Periodic lipid panel and liver panel is indicated. Patient to report any significant muscle discomfort or other side effects. Hypertension: Reasonably well controlled. Blood pressure goal in this patient is 135/85 or less. This was discussed with the patient. Currently blood pressure under reasonable control. Better medication for this patient are JEREMIAH inhibitor/ARB/beta pau etc. discussed side effects of uncontrolled hypertension and also severe hypotension. PVD: Based on previous evaluation, patient has significant PVD. Patient being followed by a vascular surgeon in [place] and also here. Pulmonary hypertension: Moderate probably related to underlying sleep apnea and obesity hypoventilation syndrome and also secondary to chronic diastolic dysfunction. Patient will benefit from a sleep study and evaluation for any nocturnal hypo-hypoxemia which can be provided through my office. Increased risk of cardiovascular event risk, difficult to control diabetes as well as weight gain are associated with sleep apnea. Sleep disorder: High likelihood that patient has this based on patient's comorbid diagnosis and body habitus. Patient will benefit from a sleep study as an outpatient. This was discussed. Patient also encouraged in weight loss etc. - Time Time with patient: 15-25 minutes - CODE STATUS was discussed, patient remains full code. Surrogate decision-maker unchanged. Multiple medical problems were addressed. More than 50% of the time spent coordinating care, discussing management plans with involved caregivers. Management plans discussed with involved personnels. Medical decision making was of moderate to high complexity , patient's has multiple comorbidities.
[2017-06-19] MEDS ORDERED: LIDOCAINE 1% INJ-PF (10 MG/ML) 30 ML SDV ONE (12:10)
[2017-06-19] MEDS ORDERED: MIDAZOLAM 2 MG/2 ML INJ ONE (14:21)
[2017-06-19] MEDS ORDERED: PROPOFOL INJ 200 MG/20 ML VIAL IV ONE (14:22)
[2017-06-19] MEDS ORDERED: FENTANYL CITRATE INJ/PF 100 MCG/2 ML AMPUL ONE ×2 (14:31→17:01)
[2017-06-19] MEDS ORDERED: PROMETHAZINE HCL INJ 25 MG/1 ML VIAL IV PRN ×2 (15:21)
[2017-06-19] MEDS ORDERED: MEPERIDINE HCL/PF INJ 25 MG/1 ML DISP.SYRIN IV PRN (15:21)
[2017-06-19] MEDS ORDERED: MORPHINE SULFATE 10 MG/ML INJ IV PRN (15:21)
[2017-06-19] MEDS ORDERED: FENTANYL CITRATE INJ/PF 100 MCG/2 ML AMPUL IV PRN ×2 (15:21)
[2017-06-19] MEDS ORDERED: BUPIVACAINE INJ/PF LIPOSOME/PF 266 MG/20 ML SDV ONE (15:21)
[2017-06-19] MEDS ORDERED: DIPHENHYDRAMINE HCL 50 MG/ML VIAL IV PRN (15:21)
[2017-06-19] MEDS ORDERED: ONDANSETRON HCL INJ/PF 4 MG/2 ML SDV IV PRN (15:21)
--- NOTE | 2017-06-19 16:24 | Operative Report ---
Operative Report DATE OF SURGERY: 06/19/17 PREOPERATIVE DIAGNOSIS: Ischemic, necrotic left foot POSTOPERATIVE DIAGNOSIS: same OPERATION: Left below the knee amputation with primary closure SURGEON: BREANA TATE CLAMP CARRIER OPERATOR: LILLIAM CARRILLO ANESTHESIA: GA TISSUE REMOVED OR ALTERED: Left and ankle COMPLICATIONS: None ESTIMATED BLOOD LOSS: 1 50 cc INTRAOPERATIVE FINDINGS: See below PROCEDURE: Indication procedur The patient 77-year-old female with history of obesity, diabetes mellitus , ischemic neuropathy, nonhealing wound left foot, with severe peripheral vascular disease who has been treated medically with resolution of her chronic foot wound. She is now facing amputation. Dr. Schmitt had a long conversation with her and her family on the evening of 06/18/2017 about the risks benefits and options to left below the knee versus left [id number]. Serious consideration was given to the patient vascular supply to her distal leg, functional status, and social and emotional psychological support systems. Patient expressed her strong desire to have a below the knee amputation if clinically suitable. she agreed to the planned procedure, with a thorough discussion of the risks including bleeding, infection, nonhealing, chronic wound problems, cardiovascular problems and even . He was taken to the operating room where general anesthesia was induced. Left foot was isolated with a bio bag and Ioban dressing. The left leg was then prepped and draped in sterile fashion and then the old Ioban covered with a sterile Ioban. Surgical plan surgical timeout were conducted. A left below the knee amputation was planned. Markings were made on the skin with the upper skin flap approximately 12 cm below the anterior tibial tuberosity and the posterior flap approximately 24 cm below position posteriorly. Skin was incised with a #10 blade. Blood vessels were cauterized or ligated encountered; there was a mild amount of edema medially and posteriorly. The fascia and muscle was divided with electrocautery. The anterior and posterior tibial neurovascular complexes were tied off with a 0 sutures as encountered. The periosteum overlying the tibia was elevated, and the tibia divided with a oscillating saw approximately 6 cm cephalad to the superior skin flap. In the process of transecting the tibia fibula actually snapped suggesting an unhealthy bone. We cleaned up the transected fibula with rongeurs. Completed the division of the gastrocnemius and soleus muscles and the left foot and ankle in its entirety was sent to pathology and a bio bag. Hemostasis was achieved. We did debride some of the muscle with cautery, ligating the pins neurovascular bundles approximately 3 cm proximal to the previous point of transection. We now brought the posterior skin flap including the gastrocnemius muscle up anteriorly and performed a thorough myodesis 0 Vicryl suture closing the stump satisfactorily with a moderate amount of tension. The skin was then approximated with 3-0 Ethilon suture and nando. At the conclusion of the closure, there was a minimal to moderate amount of tension on the skin with no evidence of ischemia. Of note throughout the operation all of the transected muscle appeared healthy viable light briskly and there was no evidence of infection. Furthermore there was no evidence of cellulitis at this level nor foul smell nor fasciitis. The infrageniculate vessels were heavily calcified however. Dressings including Xeroform 4 x 4's Kerlix and Rigoberto wrap applied. Patient tolerated the procedure well, was extubated, and taken to recovery room in stable condition. The physician medical services assistant, Ms. Ngo, provided assistance during this case by: Assisting , retracting tissue, instillation of local anesthesia and closure of skin incisions.
[2017-06-19] MEDS: ERTAPENEM SODIUM 1 GM in NORMAL SALINE 50 ML IV SCH (18:01)
[2017-06-19] MEDS: INSULIN LISPRO 100 UNIT/ML 3 ML VIAL SUBCUT PRN (22:32)
[2017-06-19] MEDS: LATANOPROST 0.005% OPH SOLN 2.5 ML OU SCH (22:32)
[2017-06-20] MEDS: AZTREONAM 1 GM in DEXTROSE 5%-WATER 50 ML IV SCH ×3 (01:51→18:27)
[2017-06-20] MEDS: HYDROMORPHONE HCL INJ/PF 2 MG/ML AMPULE IV PRN ×6 (01:51→22:23)
[2017-06-20] MEDS: POTASSI CL 20 MEQ/NS 1L 1,000 ML IV PRN (01:51)
[2017-06-20 04:53] LABS: ABSOLUTE EOSINOPHILS # (AUTO) 0.3 10^3/uL (0.0-0.6); ABSOLUTE LYMPHOCYTES (AUTO) 1.7 10^3/uL (0.5-4.7); ABSOLUTE MONOCYTES (AUTO) 0.8 10^3/uL (0.1-1.4); ABSOLUTE NEUT (AUTO) 9.5 10^3/uL (1.7-8.2); BASOPHILS % (AUTO) 0.4 % (0-2); HEMATOCRIT 26.8 % (36.0-47.0); HEMOGLOBIN 8.7 g/dL (12.0-15.5); HGB HCT DIFFERENCE -0.7; LYMPHOCYTES % (AUTO) 14.1 % (13-45); MEAN CORPUSCULAR HEMOGLOBIN 26.3 pg (27.0-33.4); MEAN CORPUSCULAR HGB CONC 32.5 g/dL (32.0-36.0); MEAN CORPUSCULAR VOLUME 81 fl (80-97); MONOCYTES % (AUTO) 6.5 % (3-13); RED BLOOD COUNT 3.31 10^6/uL (3.72-5.28); RED CELL DISTRIBUTION WIDTH 14.5 % (11.5-14.0); WHITE BLOOD COUNT 12.4 10^3/uL (4.0-10.5)
[2017-06-20 05:13] LABS: ANION GAP 11 (5-19); BLOOD UREA NITROGEN 17 mg/dL (7-20); CALCIUM 8.7 mg/dL (8.4-10.2); CARBON DIOXIDE 20 mmol/L (22-30); CHLORIDE 110 mmol/L (98-107); CREATININE RESULT 1.22 mg/dL (0.52-1.25); GLUCOSE 176 mg/dL (75-110); POTASSIUM 5.7 mmol/L (3.6-5.0); SODIUM 140.8 mmol/L (137-145)
[2017-06-20] MEDS: INSULIN LISPRO 100 UNIT/ML 3 ML VIAL SUBCUT SCH ×3 (08:08→17:53)
[2017-06-20] MEDS: METFORMIN HCL 500 MG TABLET PO SCH ×2 (08:08→17:53)
[2017-06-20] MEDS: IPRATROPIUM/ALBUTEROL 0.5-2.5 MG/3 ML AMPUL NEB SCH ×3 (08:11→20:32)
--- NOTE | 2017-06-20 09:12 | PDOC PROGRESS REPORT ---
Subjective Progress Note for:: 06/20/17 Subjective:: Complain of pain at the amputation site. Physical Exam Vital Signs: Temp Pulse Resp BP Pulse Ox 98.7 F 73 18 120/50 L 95 06/20/17 07:36 06/20/17 08:12 06/20/17 08:12 06/20/17 07:36 06/20/17 08:12 Intake & Output 06/19/17 06/20/17 06/21/17 06:59 06:59 06:59 Intake Total 1260 3130 Output Total 400 2510 Balance 860 620 Weight 110.5 kg 110.5 kg General appearance: PRESENT: no acute distress, cooperative Respiratory exam: PRESENT: clear to auscultation caity Cardiovascular exam: PRESENT: RRR Extremities exam: PRESENT: other - Amputation stump dressing intact and dry. Results Laboratory Results: 06/20/17 04:01 06/20/17 04:01 06/20/17 06/20/17 04:01 04:01 WBC 12.4 H RBC 3.31 L Hgb 8.7 L Hct 26.8 L MCV 81 MCH 26.3 L MCHC 32.5 RDW 14.5 H Plt Count 369 Seg Neutrophils % 77.0 Lymphocytes % 14.1 Monocytes % 6.5 Eosinophils % 2.0 Basophils % 0.4 Absolute Neutrophils 9.5 H Absolute Lymphocytes 1.7 Absolute Monocytes 0.8 Absolute Eosinophils 0.3 Absolute Basophils 0.0 Sodium 140.8 Potassium 5.7 H Chloride 110 H Carbon Dioxide 20 L Anion Gap 11 BUN 17 Creatinine 1.22 Est GFR ( Amer) 52 L Est GFR (Non-Af Amer) 43 L Glucose 176 H Calcium 8.7 06/17/17 22:45 Clean Catch Midstream Urine Culture - Final Mixed Skin. Possible Pathogen Assessment & Plan - Diagnosis (1) Peripheral vascular disease Is this a current diagnosis for this admission?: YesPlan: Status post below the knee amputation. Will increase her Dilaudid frequency for pain control. Otherwise patient looks well.
[2017-06-20] MEDS ORDERED: ONDANSETRON HCL INJ/PF 4 MG/2 ML SDV IV PRN (09:26)
[2017-06-20] MEDS ORDERED: ACETAMINOPHEN 325 MG TABLET PO PRN (09:27)
[2017-06-20] MEDS ORDERED: INSULIN GLARGINE,HUM.REC.ANLOG 1,000 UNIT/10 ML UNIT SUBCUT SCH (10:00)
[2017-06-20] MEDS: TIMOLOL MALEATE 0.25% OPH SOLN 5 ML OU SCH ×2 (10:08→17:53)
[2017-06-20] MEDS: LOSARTAN POTASSIUM 50 MG TABLET PO SCH (10:09)
[2017-06-20] MEDS: ASPIRIN 81 MG TABLET, CHEWABLE PO SCH (10:09)
[2017-06-20] MEDS: HYDROCHLOROTHIAZIDE 25 MG TABLET PO SCH (10:10)
[2017-06-20] MEDS: INSULIN GLARGINE,HUM.REC.ANLOG 300 UNIT/3 ML INSULN.PEN SUBCUT SCH (10:11)
[2017-06-20] MEDS: ENOXAPARIN SODIUM INJ 40 MG/0.4 ML DISP.SYRIN SUBCUT SCH (10:11)
--- NOTE | 2017-06-20 11:25 | PDOC PROGRESS REPORT ---
Subjective Progress Note for:: 06/20/17 Subjective:: Patient is status post below-knee amputation on the left side. Currently complaining of some discomfort in the stump. 2D echo results were discussed with the patient which shows moderate pulmonary hypertension and also RV enlargement. Pt is denying any chest arm or neck discomfort. Patient denying any PND, orthopnea. Patient denied any sustained palpitations, dizziness, syncope, near syncope. Patient denying any fever chills. Patient is maintaining sinus rhythm. Review of systems: Rest review of systems negative. Medications: Medications have been reviewed. Physical Exam Vital Signs: Temp Pulse Resp BP Pulse Ox 98.7 F 73 18 120/50 L 95 06/20/17 07:36 06/20/17 08:12 06/20/17 08:12 06/20/17 07:36 06/20/17 08:12 Intake & Output 06/19/17 06/20/17 06/21/17 06:59 06:59 06:59 Intake Total 1260 3130 Output Total 400 2510 Balance 860 620 Weight 110.5 kg 110.5 kg Exam: GENERAL: well-nourished and in no acute distress. Alert and oriented x3 HEAD: Atraumatic, normocephalic. EYES: Pupils equal round and reactive to light, extraocular movements intact, sclera anicteric, conjunctiva are normal. ENT: TMs normal, nares patent, oropharynx clear without exudates. Moist mucous membranes. No oral ulcerations or bleeding gums noted NECK: supple without lymphadenopathy. Trachea is central. No cervical or axillary lymphadenopathy noted. Carotids are 2+, JVD WNL LUNGS: Respiration seems nonlabored, no significant accessory muscle action noted. Breath sounds clear to auscultation bilaterally and equal noted. No wheezes rales or rhonchi noted. No significant dullness noted on percussion. CHEST: Palpation of the chest wall shows no significant chest wall tenderness. No other significant abnormalities noted. HEART: [place] MOLD SHAKER, No PSH, 1/6 DEEPTHI aortic area, 1/6 steven systolic murmur mitral area, no rubs, no gallops. ABDOMEN: Soft, no significant tenderness appreciated, normoactive bowel sounds. No guarding, no rebound. No rigidity noted . No masses appreciated. EXTREMITIES: Pedal pulses are 1-2+, no calf tenderness noted. No clubbing or cyanosis.trace to 1+ pedal edema noted. Below knee amputation noted on the left side lower extremity. NEUROLOGICAL: Focused neurological exam showed no significant neurologic deficit. Normal speech, no focal weakness appreciated. PSYCH: Normal mood, normal affect. Judgment and insight within normal limits. SKIN: No significant ecchymosis, rash, ulcerations or signs of pruritus noted. MUSCULOSKELETAL EXAM: No significant joint swelling noted. Results Laboratory Results: 06/20/17 04:01 06/20/17 04:01 06/20/17 06/20/17 04:01 04:01 WBC 12.4 H RBC 3.31 L Hgb 8.7 L Hct 26.8 L MCV 81 MCH 26.3 L MCHC 32.5 RDW 14.5 H Plt Count 369 Seg Neutrophils % 77.0 Lymphocytes % 14.1 Monocytes % 6.5 Eosinophils % 2.0 Basophils % 0.4 Absolute Neutrophils 9.5 H Absolute Lymphocytes 1.7 Absolute Monocytes 0.8 Absolute Eosinophils 0.3 Absolute Basophils 0.0 Sodium 140.8 Potassium 5.7 H Chloride 110 H Carbon Dioxide 20 L Anion Gap 11 BUN 17 Creatinine 1.22 Est GFR ( Amer) 52 L Est GFR (Non-Af Amer) 43 L Glucose 176 H Calcium 8.7 06/17/17 20:20 Foot - Heel Gram Stain - Final 06/17/17 22:45 Clean Catch Midstream Urine Culture - Final Mixed Skin. Possible Pathogen Assessment & Plan - Diagnosis (1) Hyperkalemia Is this a current diagnosis for this admission?: Yes (2) Diabetic foot ulcers Qualifiers: Diabetic foot ulcer location: unspecified part of foot Diabetes mellitus type: type 2 Laterality: left Non-pressure ulcer stage: unspecified non-pressure ulcer stage Qualified Code(s): E11.621 - Type 2 diabetes mellitus with foot ulcer; L97.509 - Non-pressure chronic ulcer of other part of unspecified foot with unspecified severity Is this a current diagnosis for this admission?: Yes (3) Hyperlipidemia Qualifiers: Hyperlipidemia type: unspecified Qualified Code(s): E78.5 - Hyperlipidemia, unspecified Is this a current diagnosis for this admission?: Yes (4) Hypertension Qualifiers: Hypertension type: essential hypertension Qualified Code(s): I10 - Essential (primary) hypertension Is this a current diagnosis for this admission?: Yes (5) Peripheral vascular disease Is this a current diagnosis for this admission?: Yes (6) Type 2 diabetes mellitus Qualifiers: Diabetes mellitus complication status: with other specified complication 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 Will repeat an EKG in the morning. Follow potassium level very closely. May need to stop losartan if high blood potassium level persist. Hyperlipidemia: Continue statin therapy. Hypertension: Continue current therapy. Blood pressure goal is 135/85 or less. Peripheral vascular disease: Clinically stable. Type 2 diabetes: Continue good management of diabetes but avoid any hyper or hypoglycemia. Obesity: Patient may have underlying sleep apnea syndrome. Patient will benefit from such evaluation. This can be carried out as an outpatient. - Time Time with patient: 15-25 minutes - CODE STATUS was discussed, patient remains full code. Surrogate decision-maker unchanged. Multiple medical problems were addressed. More than 50% of the time spent coordinating care, discussing management plans with involved caregivers. Management plans discussed with involved personnels. Medical decision making was of moderate to high complexity , patient's has multiple comorbidities. Medications reviewed and adjusted accordingly: Yes
--- NOTE | 2017-06-20 11:56 | PDOC PROGRESS REPORT ---
Subjective Progress Note for:: 06/20/17 Subjective:: Patient's underwent for the left BKA. Currently doing well still on the pain Patients denied any chest pain no shortness of the breath Physical Exam Vital Signs: Temp Pulse Resp BP Pulse Ox 98.7 F 73 18 120/50 L 95 06/20/17 07:36 06/20/17 08:12 06/20/17 08:12 06/20/17 07:36 06/20/17 08:12 Intake & Output 06/19/17 06/20/17 06/21/17 06:59 06:59 06:59 Intake Total 1260 3130 Output Total 400 2510 Balance 860 620 Weight 110.5 kg 110.5 kg General appearance: PRESENT: no acute distress, well-developed, well-nourished Head exam: PRESENT: atraumatic, normocephalic Eye exam: PRESENT: conjunctiva pink, EOMI, PERRLA. ABSENT: scleral icterus Ear exam: PRESENT: normal external ear exam Mouth exam: PRESENT: moist, tongue midline Neck exam: PRESENT: full ROM. ABSENT: carotid bruit, JVD, lymphadenopathy, thyromegaly Respiratory exam: PRESENT: clear to auscultation caity Cardiovascular exam: PRESENT: RRR. ABSENT: diastolic murmur, rubs, systolic murmur Pulses: PRESENT: normal dorsalis pedis pul, +2 pedal pulses bilateral Vascular exam: PRESENT: normal capillary refill GI/Abdominal exam: PRESENT: normal bowel sounds, soft. ABSENT: distended, guarding, mass, organolmegaly, rebound, tenderness Rectal exam: PRESENT: deferred Extremities exam: PRESENT: left BKA Additional comments: The dressing is intact Neurological exam: PRESENT: alert, awake, oriented to person, oriented to place , oriented to time, oriented to situation, CN II-XII grossly intact. ABSENT: motor sensory deficit Psychiatric exam: PRESENT: appropriate affect, normal mood. ABSENT: homicidal ideation, suicidal ideation Skin exam: PRESENT: dry, intact, warm. ABSENT: cyanosis, rash Results Laboratory Results: 06/20/17 04:01 06/20/17 04:01 06/20/17 06/20/17 04:01 04:01 WBC 12.4 H RBC 3.31 L Hgb 8.7 L Hct 26.8 L MCV 81 MCH 26.3 L MCHC 32.5 RDW 14.5 H Plt Count 369 Seg Neutrophils % 77.0 Lymphocytes % 14.1 Monocytes % 6.5 Eosinophils % 2.0 Basophils % 0.4 Absolute Neutrophils 9.5 H Absolute Lymphocytes 1.7 Absolute Monocytes 0.8 Absolute Eosinophils 0.3 Absolute Basophils 0.0 Sodium 140.8 Potassium 5.7 H Chloride 110 H Carbon Dioxide 20 L Anion Gap 11 BUN 17 Creatinine 1.22 Est GFR ( Amer) 52 L Est GFR (Non-Af Amer) 43 L Glucose 176 H Calcium 8.7 06/17/17 20:20 Foot - Heel Gram Stain - Final 06/17/17 22:45 Clean Catch Midstream Urine Culture - Final Mixed Skin. Possible Pathogen Assessment & Plan - Diagnosis (1) Diabetic foot ulcers Qualifiers: Diabetic foot ulcer location: unspecified part of foot Diabetes mellitus type: type 2 Laterality: left Non-pressure ulcer stage: unspecified non-pressure ulcer stage Qualified Code(s): E11.621 - Type 2 diabetes mellitus with foot ulcer; L97.509 - Non-pressure chronic ulcer of other part of unspecified foot with unspecified severity Is this a current diagnosis for this admission?: YesPlan: Status post a left BKA (2) Type 2 diabetes mellitus Qualifiers: Diabetes mellitus complication status: with other specified complication Diabetes mellitus snf insulin use: unspecified snf insulin use status Qualified Code(s): E11.69 - Type 2 diabetes mellitus with other specified complication Is this a current diagnosis for this admission?: YesPlan: Continue sliding scale and continues to current medications (3) Hypertension Qualifiers: Hypertension type: essential hypertension Qualified Code(s): I10 - Essential (primary) hypertension Is this a current diagnosis for this admission?: YesPlan: Continues current medications (4) Hyperlipidemia Qualifiers: Hyperlipidemia type: unspecified Qualified Code(s): E78.5 - Hyperlipidemia, unspecified Is this a current diagnosis for this admission?: Yes (5) Obesity Qualifiers: Obesity type: unspecified obesity type Is this a current diagnosis for this admission?: Yes (6) Chronic back pain Qualifiers: Back pain location: low back pain Is this a current diagnosis for this admission?: YesPlan: Patients follow with the Neurosurgeon and is all conservative management (7) Peripheral vascular disease Is this a current diagnosis for this admission?: Yes (8) Ischemic neuropathy of left foot Is this a current diagnosis for this admission?: YesPlan: Status post left BKA (9) Leukocytosis Qualifiers: Leukocytosis type: unspecified Qualified Code(s): D72.829 - Elevated white blood cell count, unspecified Is this a current diagnosis for this admission?: Yes (10) Hyperkalemia Is this a current diagnosis for this admission?: YesPlan: Stop the potassium and IV fluid repeat the potassiums again this afternoon (11) Anemia Qualifiers: Anemia type: other cause Is this a current diagnosis for this admission?: YesPlan: Continues to monitor will recheck the CBC in the morning if is still low we will transfuse the blood - Time Time Spent with patient: 15-24 minutes Medications reviewed and adjusted accordingly: Yes Anticipated discharge: SNF Within: Other - Inpatient Certification Medical Necessity: Need for IV Antibiotics Post Hospital Care: D/C Band Sawing 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
[2017-06-20] MEDS ORDERED: DOCUSATE SODIUM 100 MG CAPSULE PO ONE (12:00)
[2017-06-20] MEDS: ERTAPENEM SODIUM 1 GM in NORMAL SALINE 50 ML IV SCH (17:53)
[2017-06-20] MEDS: DOCUSATE SODIUM 100 MG CAPSULE PO SCH (17:53)
[2017-06-20] MEDS: LATANOPROST 0.005% OPH SOLN 2.5 ML OU SCH (22:24)
[2017-06-21] MEDS: AZTREONAM 1 GM in DEXTROSE 5%-WATER 50 ML IV SCH (02:51)
[2017-06-21] MEDS: OXYCODONE-ACETAMINOPHEN 5-325 MG TABLET PO PRN ×2 (04:14→18:03)
[2017-06-21 04:32] LABS: ABSOLUTE BASOPHILS # (AUTO) 0.1 10^3/uL (0.0-0.2); ABSOLUTE EOSINOPHILS # (AUTO) 0.1 10^3/uL (0.0-0.6); ABSOLUTE LYMPHOCYTES (AUTO) 1.3 10^3/uL (0.5-4.7); ABSOLUTE MONOCYTES (AUTO) 1.1 10^3/uL (0.1-1.4); ABSOLUTE NEUT (AUTO) 12.2 10^3/uL (1.7-8.2); BASOPHILS % (AUTO) 0.4 % (0-2); EOSINOPHILS % (AUTO) 0.7 % (0-6); HEMATOCRIT 26.2 % (36.0-47.0); HEMOGLOBIN 8.5 g/dL (12.0-15.5); HGB HCT DIFFERENCE -0.7; MEAN CORPUSCULAR HEMOGLOBIN 26.6 pg (27.0-33.4); MEAN CORPUSCULAR HGB CONC 32.6 g/dL (32.0-36.0); MEAN CORPUSCULAR VOLUME 82 fl (80-97); MONOCYTES % (AUTO) 7.5 % (3-13); RED BLOOD COUNT 3.21 10^6/uL (3.72-5.28); SEGMENTED NEUTROPHILS % (AUTO) 82.4 % (42-78); WHITE BLOOD COUNT 14.7 10^3/uL (4.0-10.5)
[2017-06-21 04:44] LABS: ANION GAP 8 (5-19); BLOOD UREA NITROGEN 14 mg/dL (7-20); CALCIUM 8.8 mg/dL (8.4-10.2); CARBON DIOXIDE 20 mmol/L (22-30); CHLORIDE 110 mmol/L (98-107); CREATININE RESULT 1.08 mg/dL (0.52-1.25); GLUCOSE 132 mg/dL (75-110); POTASSIUM 5.2 mmol/L (3.6-5.0); SODIUM 138.3 mmol/L (137-145)
[2017-06-21] MEDS: INSULIN LISPRO 100 UNIT/ML 3 ML VIAL SUBCUT SCH ×3 (08:03→18:01)
[2017-06-21] MEDS: INSULIN LISPRO 100 UNIT/ML 3 ML VIAL SUBCUT PRN ×3 (08:03→21:44)
[2017-06-21] MEDS: METFORMIN HCL 500 MG TABLET PO SCH ×2 (08:03→18:02)
--- NOTE | 2017-06-21 08:09 | EKG REPORT ---
SEVERITY:- ABNORMAL ECG - SINUS RHYTHM VENTRICULAR TRIGEMINY LEFT ANTERIOR FASCICULAR BLOCK LOW VOLTAGE EKG : Confirmed by: Colby Moore MD 21-Jun-2017 08:08:57
[2017-06-21] MEDS: IPRATROPIUM/ALBUTEROL 0.5-2.5 MG/3 ML AMPUL NEB SCH ×3 (08:14→19:56)
[2017-06-21] MEDS: HYDROCHLOROTHIAZIDE 25 MG TABLET PO SCH (10:00)
[2017-06-21] MEDS: LOSARTAN POTASSIUM 50 MG TABLET PO SCH (10:01)
[2017-06-21] MEDS: DOCUSATE SODIUM 100 MG CAPSULE PO SCH ×2 (10:01→18:02)
[2017-06-21] MEDS: TIMOLOL MALEATE 0.25% OPH SOLN 5 ML OU SCH ×2 (10:02→18:04)
[2017-06-21] MEDS: ASPIRIN 81 MG TABLET, CHEWABLE PO SCH (10:02)
[2017-06-21] MEDS: ENOXAPARIN SODIUM INJ 40 MG/0.4 ML DISP.SYRIN SUBCUT SCH (10:03)
[2017-06-21] MEDS: INSULIN GLARGINE,HUM.REC.ANLOG 300 UNIT/3 ML INSULN.PEN SUBCUT SCH (10:04)
[2017-06-21] MEDS ORDERED: NORMAL SALINE 250 ML IV PRN (10:28)
[2017-06-21] MEDS ORDERED: PIPERACILLIN/TAZOBACTAM 3.375 GM VIAL IV SCH (10:30)
[2017-06-21] MEDS ORDERED: ERTAPENEM SODIUM 1 GM in NORMAL SALINE 50 ML IV SCH (10:31)
--- NOTE | 2017-06-21 10:59 | PDOC PROGRESS REPORT ---
Subjective Progress Note for:: 06/21/17 Subjective:: Patient is currently doing fair. According to the nurses patient's lipid hallucinated last night. Patient's currently denied any chest pain denied any shortness of the breath. Patient's pain under control Patient hemoglobin is 8.7. Patient's also EKG some ventricular trigeminy Patients denied any chest pain denied any shortness of the breath and no abdominal pain Physical Exam Vital Signs: Temp Pulse Resp BP Pulse Ox 99.8 F 73 18 121/54 L 95 06/21/17 08:05 06/21/17 08:18 06/21/17 08:18 06/21/17 08:05 06/21/17 08:18 Intake & Output 06/20/17 06/21/17 06/22/17 06:59 06:59 06:59 Intake Total 3130 840 Output Total 2510 300 Balance 620 540 Weight 110.5 kg 111.2 kg General appearance: PRESENT: no acute distress, well-developed, well-nourished Head exam: PRESENT: atraumatic, normocephalic Eye exam: PRESENT: conjunctiva pink, EOMI, PERRLA. ABSENT: scleral icterus Ear exam: PRESENT: normal external ear exam Mouth exam: PRESENT: moist, tongue midline Neck exam: PRESENT: full ROM. ABSENT: carotid bruit, JVD, lymphadenopathy, thyromegaly Respiratory exam: PRESENT: clear to auscultation caity Cardiovascular exam: PRESENT: RRR. ABSENT: diastolic murmur, rubs, systolic murmur Pulses: PRESENT: normal dorsalis pedis pul, +2 pedal pulses bilateral Vascular exam: PRESENT: normal capillary refill GI/Abdominal exam: PRESENT: normal bowel sounds, soft. ABSENT: distended, guarding, mass, organolmegaly, rebound, tenderness Rectal exam: PRESENT: deferred Extremities exam: PRESENT: left BKA Additional comments: The dressing is intact Neurological exam: PRESENT: alert, awake, oriented to person, oriented to place , oriented to time, oriented to situation. ABSENT: motor sensory deficit Psychiatric exam: PRESENT: appropriate affect, normal mood. ABSENT: homicidal ideation, suicidal ideation Skin exam: PRESENT: dry, intact, warm. ABSENT: cyanosis, rash Results Laboratory Results: 06/21/17 03:54 06/21/17 03:54 06/18/17 06/20/1706/21/17 20:24 14:50 03:54 WBC 14.7 H RBC 3.21 L Hgb 8.5 L Hct 26.2 L MCV 82 MCH 26.6 L MCHC 32.6 RDW 15.0 H Plt Count 331 Seg Neutrophils % 82.4 H Lymphocytes % 9.0 L Monocytes % 7.5 Eosinophils % 0.7 Basophils % 0.4 Absolute Neutrophils 12.2 H Absolute Lymphocytes 1.3 Absolute Monocytes 1.1 Absolute Eosinophils 0.1 Absolute Basophils 0.1 Sodium Potassium 5.3 H Chloride Carbon Dioxide Anion Gap BUN Creatinine Est GFR ( Amer) Est GFR (Non-Af Amer) Glucose Calcium Magnesium Blood Type O POSITIVE Antibody Screen NEGATIVE 06/21/17 06/21/17 03:54 03:54 WBC RBC Hgb Hct MCV MCH MCHC RDW Plt Count Seg Neutrophils % Lymphocytes % Monocytes % Eosinophils % Basophils % Absolute Neutrophils Absolute Lymphocytes Absolute Monocytes Absolute Eosinophils Absolute Basophils Sodium 138.3 Potassium 5.2 H Chloride 110 H Carbon Dioxide 20 L Anion Gap 8 BUN 14 Creatinine 1.08 Est GFR ( Amer) > 60 Est GFR (Non-Af Amer) 49 L Glucose 132 H Calcium 8.8 Magnesium 1.6 Blood Type Antibody Screen 06/17/17 20:20 Foot - Heel Gram Stain - Final 06/17/17 20:20 Foot - Heel Wound Culture - Final Morganella Morganii Pseudomonas Aeruginosa Assessment & Plan - Diagnosis (1) Diabetic foot ulcers Qualifiers: Diabetic foot ulcer location: unspecified part of foot Diabetes mellitus type: type 2 Laterality: left Non-pressure ulcer stage: unspecified non-pressure ulcer stage Qualified Code(s): E11.621 - Type 2 diabetes mellitus with foot ulcer; L97.509 - Non-pressure chronic ulcer of other part of unspecified foot with unspecified severity Is this a current diagnosis for this admission?: Yes (2) Type 2 diabetes mellitus Qualifiers: Diabetes mellitus complication status: with other specified complication 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 insulin use: unspecified equipment operator intermodal yard insulin use status Qualified Code(s): E11.69 - Type 2 diabetes mellitus with other specified complication; Z79.4 - skilled nursing (current) use of insulin Is this a current diagnosis for this admission?: YesPlan: Continue sliding scale and continues to current medications (3) Hypertension Qualifiers: Hypertension type: essential hypertension Qualified Code(s): I10 - Essential (primary) hypertension Is this a current diagnosis for this admission?: YesPlan: Continues current medications (4) Hyperlipidemia Qualifiers: Hyperlipidemia type: unspecified Qualified Code(s): E78.5 - Hyperlipidemia, unspecified Is this a current diagnosis for this admission?: Yes (5) Obesity Qualifiers: Obesity type: unspecified obesity type Is this a current diagnosis for this admission?: YesPlan: Patient usually walk with the walker but since the left foot wound patient unable to walk much (6) Chronic back pain Qualifiers: Back pain location: low back pain Is this a current diagnosis for this admission?: YesPlan: Patients follow with the Neurosurgeon and is all conservative management (7) Peripheral vascular disease Is this a current diagnosis for this admission?: Yes (8) Ischemic neuropathy of left foot Is this a current diagnosis for this admission?: YesPlan: Status post left BKA (9) Leukocytosis Qualifiers: Leukocytosis type: unspecified Qualified Code(s): D72.829 - Elevated white blood cell count, unspecified Is this a current diagnosis for this admission?: YesPlan: As per the culture and discussed with the surgery start the patient on the zosyn (10) Hyperkalemia Is this a current diagnosis for this admission?: YesPlan: Will recheck again potassium (11) Anemia Qualifiers: Anemia type: other cause Is this a current diagnosis for this admission?: YesPlan: Transfuse 1 unit of blood - Time Time Spent with patient: 15-24 minutes Medications reviewed and adjusted accordingly: Yes Anticipated discharge: SNF Within: Other - Inpatient Certification Medical Necessity: Need Close Monitoring Due to Risk of Patient Decompensation, Need for IV Antibiotics Post Hospital Care: D/C Bpm Developer Documentation - Plan Summary Plan Summary: Continues to change in the IV antibiotic transfuse 1 unit of blood check the magnesium's discussed with the scada operator to further evaluate about the EKG and discussed with the general surgery and discussed with the family
--- NOTE | 2017-06-21 11:02 | PROGRESS NOTE E ---
Progress Note NAME: MALGORZATA SOSA : 1940 AGE: 77Y DATE: 06/21/2017 ROOM: 404 SUBJECTIVE: The patient is 2 days post left udyxn-jjb-[id number] amputation. Patient is complaining of pains at the amputation site. She had a temp of 99.8 this morning and a white count of 14.7 from 12.4 yesterday. Her hemoglobin is also 8.5 this morning from 8.7 yesterday. OBJECTIVE: Dressing was changed and the stump appears to have some warmth and redness at the posterior flap. The incision looks clean and dry, though the posterior part of the incision site is slightly dusky. PLAN: I reviewed the cultures done which showed positive for Morganella and Pseudomonas sensitive to Zosyn. No mention of sensitivity to Invanz for the Pseudomonas part. Because of this I called Dr. Schmitt and we both agreed to switch antibiotics to Zosyn 3.375 g IV every 6 hours. Also, she will need a unit of packed cells with a hemoglobin of 8.5. She might need potential higher amputation. I also discussed the situation with Dr. Pearson, the surgeon who did the amputation. We will stay put and continue to monitor the amputation site with a switch in IV antibiotics. I mentioned to the patient there is a remote possibility of a possible higher up amputation. Since she is very emotional, I believe it is better to prepare her just in case she needs a higher amputation rather than tell her that she needs the amputation right on the day of the procedure. DICTATING PHYSICIAN: THU BARNEY M.D. [id number] PHY#: [id number] ID: [id number] JOB#: [id number] ACCT: [id number] cc: >
--- NOTE | 2017-06-21 11:14 | PDOC PROGRESS REPORT ---
Subjective Progress Note for:: 06/21/17 Subjective:: I was asked to evaluate patient today because of increased ventricular ectopy. 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 Currently complaining of some discomfort in the stump. Pt is denying any chest arm or neck discomfort. Patient denying any PND, orthopnea. Patient denied any sustained palpitations, dizziness, syncope, near syncope. Patient denying any fever chills. I was asked to evaluate patient today because of increased ventricular ectopy. Review of systems: Rest review of systems negative. Medications: Medications have been reviewed. Physical Exam Vital Signs: Temp Pulse Resp BP Pulse Ox 99.8 F 73 18 121/54 L 95 06/21/17 08:05 06/21/17 08:18 06/21/17 08:18 06/21/17 08:05 06/21/17 08:18 Intake & Output 06/20/17 06/21/17 06/22/17 06:59 06:59 06:59 Intake Total 3130 840 Output Total 2510 300 Balance 620 540 Weight 110.5 kg 111.2 kg Exam: GENERAL: well-nourished and in no acute distress. Alert and oriented x3 HEAD: Atraumatic, normocephalic. EYES: Pupils equal round and reactive to light, extraocular movements intact, sclera anicteric, conjunctiva are normal. ENT: TMs normal, nares patent, oropharynx clear without exudates. Moist mucous membranes. No oral ulcerations or bleeding gums noted NECK: supple without lymphadenopathy. Trachea is central. No cervical or axillary lymphadenopathy noted. Carotids are 2+, JVD WNL LUNGS: Respiration seems nonlabored, no significant accessory muscle action noted. Breath sounds clear to auscultation bilaterally and equal noted. No wheezes rales or rhonchi noted. No significant dullness noted on percussion. CHEST: Palpation of the chest wall shows no significant chest wall tenderness. No other significant abnormalities noted. 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 ABDOMEN: Soft, no significant tenderness appreciated, normoactive bowel sounds. No guarding, no rebound. No rigidity noted . No masses appreciated. EXTREMITIES: Pedal pulses are 1-2+, no calf tenderness noted. No clubbing or cyanosis.trace to 1+ pedal edema noted. Status post amputation below-knee on the left side NEUROLOGICAL: Focused neurological exam showed no significant neurologic deficit. Normal speech, no focal weakness appreciated. PSYCH: Normal mood, normal affect. Judgment and insight within normal limits. SKIN: No significant ecchymosis, rash, ulcerations or signs of pruritus noted. MUSCULOSKELETAL EXAM: No significant joint swelling noted. Status post amputation below knee left side Results Laboratory Results: 06/21/17 03:54 06/21/17 03:54 06/18/17 06/20/17 06/21/17 20:24 14:50 03:54 WBC 14.7 H RBC 3.21 L Hgb 8.5 L Hct 26.2 L MCV 82 MCH 26.6 L MCHC 32.6 RDW 15.0 H Plt Count 331 Seg Neutrophils % 82.4 H Lymphocytes % 9.0 L Monocytes % 7.5 Eosinophils % 0.7 Basophils % 0.4 Absolute Neutrophils 12.2 H Absolute Lymphocytes 1.3 Absolute Monocytes 1.1 Absolute Eosinophils 0.1 Absolute Basophils 0.1 Sodium Potassium 5.3 H Chloride Carbon Dioxide Anion Gap BUN Creatinine Est GFR ( Amer) Est GFR (Non-Af Amer) Glucose Calcium Magnesium Blood Type O POSITIVE Antibody Screen NEGATIVE 06/21/17 06/21/17 03:54 03:54 WBC RBC Hgb Hct MCV MCH MCHC RDW Plt Count Seg Neutrophils % Lymphocytes % Monocytes % Eosinophils % Basophils % Absolute Neutrophils Absolute Lymphocytes Absolute Monocytes Absolute Eosinophils Absolute Basophils Sodium 138.3 Potassium 5.2 H Chloride 110 H Carbon Dioxide 20 L Anion Gap 8 BUN 14 Creatinine 1.08 Est GFR ( Amer) > 60 Est GFR (Non-Af Amer) 49 L Glucose 132 H Calcium 8.8 Magnesium 1.6 Blood Type Antibody Screen 06/17/17 20:20 Foot - Heel Gram Stain - Final 06/17/17 20:20 Foot - Heel Wound Culture - Final Morganella Morganii Pseudomonas Aeruginosa EKG Comments: Twelve-lead EKG shows sinus rhythm with increased ventricular ectopy in the form of trigeminy, but no acute ST-T wave changes are noted Assessment & Plan - Diagnosis (1) Ventricular dysrhythmia Is this a current diagnosis for this admission?: Yes (2) Hyperkalemia Is this a current diagnosis for this admission?: Yes (3) Diabetic foot ulcers Qualifiers: Diabetic foot ulcer location: unspecified part of foot Diabetes mellitus type: type 2 Laterality: left Non-pressure ulcer stage: unspecified non-pressure ulcer stage Qualified Code(s): E11.621 - Type 2 diabetes mellitus with foot ulcer; L97.509 - Non-pressure chronic ulcer of other part of unspecified foot with unspecified severity Is this a current diagnosis for this admission?: Yes (4) Hyperlipidemia Qualifiers: Hyperlipidemia type: unspecified Qualified Code(s): E78.5 - Hyperlipidemia, unspecified Is this a current diagnosis for this admission?: Yes (5) Hypertension Qualifiers: Hypertension type: essential hypertension Qualified Code(s): I10 - Essential (primary) hypertension Is this a current diagnosis for this admission?: Yes (6) Peripheral vascular disease Is this a current diagnosis for this admission?: Yes (7) Type 2 diabetes mellitus Qualifiers: Diabetes mellitus complication status: with other specified complication Diabetes mellitus mcc insulin use: unspecified mcc insulin use status Qualified Code(s): E11.69 - Type 2 diabetes mellitus with other specified complication; Z79.4 - skilled nursing (current) use of insulin Is this a current diagnosis for this admission?: Yes - Notes Notes: Ventricular dysrhythmia: Patient showing increased ventricular ectopy. Potassium level came back at 5.2, magnesium level is 1.6. Will give patient 1 dose of magnesium. EKG otherwise is unremarkable without any significant ST-T wave changes. Hyperkalemia: So far no evidence of EKG effect from hyperkalemia noted. Follow potassium level very closely. May need to stop losartan if high blood potassium level persist. Hyperlipidemia: Continue statin therapy. Hypertension: Continue current therapy. Blood pressure goal is 135/85 or less. Peripheral vascular disease: Clinically stable. Type 2 diabetes: Continue good management of diabetes but avoid any hyper or hypoglycemia. Obesity: Patient may have underlying sleep apnea syndrome. Patient will benefit from such evaluation. This can be carried out as an outpatient. - Time Time with patient: 15-25 minutes - CODE STATUS was discussed, patient remains full code. Surrogate decision-maker unchanged. Multiple medical problems were addressed. More than 50% of the time spent coordinating care, discussing management plans with involved caregivers. Management plans discussed with involved personnels. Medical decision making was of moderate to high complexity , patient's has multiple comorbidities.
[2017-06-21] MEDS: PIPERACILLIN SODIUM/TAZOBACTAM 3.375 GM in NORMAL SALINE 100 ML IV SCH ×2 (12:10→19:26)
[2017-06-21] MEDS: LATANOPROST 0.005% OPH SOLN 2.5 ML OU SCH (21:44)
[2017-06-22] MEDS: PIPERACILLIN SODIUM/TAZOBACTAM 3.375 GM in NORMAL SALINE 100 ML IV SCH ×5 (01:07→23:11)
[2017-06-22 05:24] LABS: ABSOLUTE EOSINOPHILS # (AUTO) 0.2 10^3/uL (0.0-0.6); ABSOLUTE LYMPHOCYTES (AUTO) 1.2 10^3/uL (0.5-4.7); ABSOLUTE MONOCYTES (AUTO) 0.9 10^3/uL (0.1-1.4); ABSOLUTE NEUT (AUTO) 10.6 10^3/uL (1.7-8.2); BASOPHILS % (AUTO) 0.3 % (0-2); EOSINOPHILS % (AUTO) 1.2 % (0-6); HEMATOCRIT 27.8 % (36.0-47.0); HEMOGLOBIN 9.2 g/dL (12.0-15.5); HGB HCT DIFFERENCE -0.2; LYMPHOCYTES % (AUTO) 9.5 % (13-45); MEAN CORPUSCULAR HEMOGLOBIN 26.9 pg (27.0-33.4); MEAN CORPUSCULAR HGB CONC 33.1 g/dL (32.0-36.0); MEAN CORPUSCULAR VOLUME 81 fl (80-97); MONOCYTES % (AUTO) 6.8 % (3-13); RED BLOOD COUNT 3.42 10^6/uL (3.72-5.28); RED CELL DISTRIBUTION WIDTH 15.1 % (11.5-14.0); SEGMENTED NEUTROPHILS % (AUTO) 82.2 % (42-78); WHITE BLOOD COUNT 12.8 10^3/uL (4.0-10.5)
[2017-06-22 05:38] LABS: ANION GAP 8 (5-19); BLOOD UREA NITROGEN 14 mg/dL (7-20); CALCIUM 8.7 mg/dL (8.4-10.2); CARBON DIOXIDE 20 mmol/L (22-30); CHLORIDE 112 mmol/L (98-107); CREATININE RESULT 1.03 mg/dL (0.52-1.25); POTASSIUM 4.2 mmol/L (3.6-5.0); SODIUM 140.3 mmol/L (137-145)
[2017-06-22 06:02] LABS: GLUCOSE 37 mg/dL (75-110)
[2017-06-22] MEDS: IPRATROPIUM/ALBUTEROL 0.5-2.5 MG/3 ML AMPUL NEB SCH ×3 (07:56→19:36)
[2017-06-22] MEDS: INSULIN LISPRO 100 UNIT/ML 3 ML VIAL SUBCUT SCH ×3 (09:38→17:54)
--- NOTE | 2017-06-22 09:52 | PROGRESS NOTE E ---
Progress Note NAME: MALGORZATA SOSA : 1940 AGE: 77Y DATE: 06/22/2017 ROOM: 404 SUBJECTIVE: The patient is postop day number 3 today. She remains afebrile, but still a considerable amount of pain from the left BKA amputation area. OBJECTIVE: The dressing was removed and changed. The old dressing has some blood on the lateral aspect of the incision. The incision itself again showed no change from yesterday. The posterior flap is still quite tender and warm with slightly more erythema. The amputation site itself appears to be less swollen this morning with it being elevated. The knee and proximal areas are cool without any erythematous changes. Her white count decreased to 12.8 from yesterday and the hemoglobin after a unit of packed cells went up from 8.5 to 9.2. PLAN: Continue with IV antibiotics and continue elevation of the left BKA. We will check her H and H and white count in the morning to see if the white comes up, the hemoglobin goes down. DICTATING PHYSICIAN: THU BARNEY M.D. [id number] PHY#: [id number] ID: [id number] JOB#: [id number] ACCT: [id number] cc: >
[2017-06-22] MEDS: ENOXAPARIN SODIUM INJ 40 MG/0.4 ML DISP.SYRIN SUBCUT SCH (09:54)
[2017-06-22] MEDS: OXYCODONE-ACETAMINOPHEN 5-325 MG TABLET PO PRN ×2 (09:54→18:58)
[2017-06-22] MEDS: HYDROCHLOROTHIAZIDE 25 MG TABLET PO SCH (09:54)
[2017-06-22] MEDS: INSULIN GLARGINE,HUM.REC.ANLOG 300 UNIT/3 ML INSULN.PEN SUBCUT SCH (09:54)
[2017-06-22] MEDS: METFORMIN HCL 500 MG TABLET PO SCH ×2 (09:54→17:54)
[2017-06-22] MEDS: ASPIRIN 81 MG TABLET, CHEWABLE PO SCH (09:54)
[2017-06-22] MEDS: DOCUSATE SODIUM 100 MG CAPSULE PO SCH ×2 (09:55→17:58)
[2017-06-22] MEDS: TIMOLOL MALEATE 0.25% OPH SOLN 5 ML OU SCH ×2 (09:55→17:54)
--- NOTE | 2017-06-22 16:57 | PDOC PROGRESS REPORT ---
Subjective Progress Note for:: 06/22/17 Subjective:: She was seen by the bedside, she is status post left below-knee amputation. Physical Exam Vital Signs: Temp Pulse Resp BP Pulse Ox 98.2 F 69 20 122/77 99 06/22/17 16:00 06/22/17 16:00 06/22/17 16:00 06/22/17 16:00 06/22/17 08:06 Intake & Output 06/21/17 06/22/17 06/23/17 06:59 06:59 06:59 Intake Total 840 1370 495 Output Total 300 Balance 540 1370 495 Weight 111.2 kg 112.3 kg General appearance: PRESENT: no acute distress Eye exam: PRESENT: PERRLA Respiratory exam: PRESENT: clear to auscultation caity Cardiovascular exam: PRESENT: +S1, +S2 GI/Abdominal exam: PRESENT: soft Extremities exam: PRESENT: left BKA Neurological exam: PRESENT: alert, CN II-XII grossly intact Results Laboratory Results: 06/22/17 04:15 06/22/17 04:15 06/18/17 06/22/17 06/22/17 20:24 04:15 04:15 WBC 12.8 H RBC 3.42 L Hgb 9.2 L Hct 27.8 L MCV 81 MCH 26.9 L MCHC 33.1 RDW 15.1 H Plt Count 360 Seg Neutrophils % 82.2 H Lymphocytes % 9.5 L Monocytes % 6.8 Eosinophils % 1.2 Basophils % 0.3 Absolute Neutrophils 10.6 H Absolute Lymphocytes 1.2 Absolute Monocytes 0.9 Absolute Eosinophils 0.2 Absolute Basophils 0.0 Sodium 140.3 Potassium 4.2 Chloride 112 H Carbon Dioxide 20 L Anion Gap 8 BUN 14 Creatinine 1.03 Est GFR ( Amer) > 60 Est GFR (Non-Af Amer) 52 L Glucose 37 L* Calcium 8.7 Blood Type O POSITIVE Antibody Screen NEGATIVE Assessment & Plan - Diagnosis (1) Anemia Qualifiers: Anemia type: other cause Is this a current diagnosis for this admission?: Yes (2) Chronic back pain Qualifiers: Back pain location: low back pain Is this a current diagnosis for this admission?: Yes (3) Diabetic foot ulcers Qualifiers: Diabetic foot ulcer location: unspecified part of foot Diabetes mellitus type: type 2 Laterality: left Non-pressure ulcer stage: unspecified non-pressure ulcer stage Qualified Code(s): E11.621 - Type 2 diabetes mellitus with foot ulcer; L97.509 - Non-pressure chronic ulcer of other part of unspecified foot with unspecified severity Is this a current diagnosis for this admission?: Yes (4) Hyperkalemia Is this a current diagnosis for this admission?: Yes (5) Hyperkalemia Is this a current diagnosis for this admission?: Yes (6) Hyperlipidemia Qualifiers: Hyperlipidemia type: unspecified Qualified Code(s): E78.5 - Hyperlipidemia, unspecified Is this a current diagnosis for this admission?: Yes (7) Hypertension Qualifiers: Hypertension type: essential hypertension Qualified Code(s): I10 - Essential (primary) hypertension Is this a current diagnosis for this admission?: Yes (8) Ischemic neuropathy of left foot Is this a current diagnosis for this admission?: Yes (9) Leukocytosis Qualifiers: Leukocytosis type: unspecified Qualified Code(s): D72.829 - Elevated white blood cell count, unspecified Is this a current diagnosis for this admission?: Yes (10) Obesity Qualifiers: Obesity type: unspecified obesity type Is this a current diagnosis for this admission?: Yes (11) Peripheral vascular disease Is this a current diagnosis for this admission?: Yes (12) Type 2 diabetes mellitus Qualifiers: Diabetes mellitus complication status: with other specified complication 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
--- NOTE | 2017-06-22 18:06 | PDOC PROGRESS REPORT ---
Subjective Progress Note for:: 06/22/17 Subjective:: Patient is status post below-knee amputation on the left side. Currently complaining of some discomfort in the stump. She has also noted some discharge and bleeding. She was started on some broad-spectrum antibiotics. Patient is telling me that she may need to be taken back to the OR for further debridement. Pt is denying any chest arm or neck discomfort. Patient denying any PND, orthopnea. Patient denied any sustained palpitations, dizziness, syncope, near syncope. Patient denying any fever chills. Telemetry strips reviewed. Patient has occasional ventricular ectopic activity. No sustained tachycardia or bradycardia arrhythmias were noted. Review of systems: Rest review of systems negative. Medications: Medications have been reviewed. Physical Exam Vital Signs: Temp Pulse Resp BP Pulse Ox 98.2 F 69 20 122/77 99 06/22/17 16:00 06/22/17 16:00 06/22/17 16:00 06/22/17 16:00 06/22/17 08:06 Intake & Output 06/21/17 06/22/17 06/23/17 06:59 06:59 06:59 Intake Total 840 1370 495 Output Total 300 Balance 540 1370 495 Weight 111.2 kg 112.3 kg Exam: GENERAL: well-nourished and in no acute distress. Alert and oriented x3 HEAD: Atraumatic, normocephalic. EYES: Pupils equal round and reactive to light, extraocular movements intact, sclera anicteric, conjunctiva are normal. ENT: TMs normal, nares patent, oropharynx clear without exudates. Moist mucous membranes. No oral ulcerations or bleeding gums noted NECK: supple without lymphadenopathy. Trachea is central. No cervical or axillary lymphadenopathy noted. Carotids are 2+, JVD WNL LUNGS: Respiration seems nonlabored, no significant accessory muscle action noted. Breath sounds clear to auscultation bilaterally and equal noted. No wheezes rales or rhonchi noted. No significant dullness noted on percussion. CHEST: Palpation of the chest wall shows no significant chest wall tenderness. No other significant abnormalities noted. 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 ABDOMEN: Soft, no significant tenderness appreciated, normoactive bowel sounds. No guarding, no rebound. No rigidity noted . No masses appreciated. EXTREMITIES: Pedal pulses are 1-2+, no calf tenderness noted. No clubbing or cyanosis.trace to 1+ pedal edema noted. Status post below-knee amputation on the left side. NEUROLOGICAL: Focused neurological exam showed no significant neurologic deficit. Normal speech, no focal weakness appreciated. PSYCH: Normal mood, normal affect. Judgment and insight within normal limits. SKIN: No significant ecchymosis, rash, ulcerations or signs of pruritus noted. MUSCULOSKELETAL EXAM: No significant joint swelling noted. Results Laboratory Results: 06/22/17 04:15 06/22/17 04:15 06/18/17 06/22/17 06/22/17 20:24 04:15 04:15 WBC 12.8 H RBC 3.42 L Hgb 9.2 L Hct 27.8 L MCV 81 MCH 26.9 L MCHC 33.1 RDW 15.1 H Plt Count 360 Seg Neutrophils % 82.2 H Lymphocytes % 9.5 L Monocytes % 6.8 Eosinophils % 1.2 Basophils % 0.3 Absolute Neutrophils 10.6 H Absolute Lymphocytes 1.2 Absolute Monocytes 0.9 Absolute Eosinophils 0.2 Absolute Basophils 0.0 Sodium 140.3 Potassium 4.2 Chloride 112 H Carbon Dioxide 20 L Anion Gap 8 BUN 14 Creatinine 1.03 Est GFR ( Amer) > 60 Est GFR (Non-Af Amer) 52 L Glucose 37 L* Calcium 8.7 Blood Type O POSITIVE Antibody Screen NEGATIVE Assessment & Plan - Diagnosis (1) Ventricular dysrhythmia Is this a current diagnosis for this admission?: Yes (2) Hyperkalemia Is this a current diagnosis for this admission?: Yes (3) Diabetic foot ulcers Qualifiers: Diabetic foot ulcer location: unspecified part of foot Diabetes mellitus type: type 2 Laterality: left Non-pressure ulcer stage: unspecified non-pressure ulcer stage Qualified Code(s): E11.621 - Type 2 diabetes mellitus with foot ulcer; L97.509 - Non-pressure chronic ulcer of other part of unspecified foot with unspecified severity Is this a current diagnosis for this admission?: Yes (4) Hyperlipidemia Qualifiers: Hyperlipidemia type: unspecified Qualified Code(s): E78.5 - Hyperlipidemia, unspecified Is this a current diagnosis for this admission?: Yes (5) Hypertension Qualifiers: Hypertension type: essential hypertension Qualified Code(s): I10 - Essential (primary) hypertension Is this a current diagnosis for this admission?: Yes (6) Peripheral vascular disease Is this a current diagnosis for this admission?: Yes (7) Type 2 diabetes mellitus Qualifiers: Diabetes mellitus complication status: with other specified complication Diabetes mellitus mcfp insulin use: unspecified mcfp insulin use status Qualified Code(s): E11.69 - Type 2 diabetes mellitus with other specified complication; 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 Potassium level came back at WNL today, EKG otherwise is unremarkable without any significant ST-T wave changes. Hyperkalemia: So far no evidence of EKG effect from hyperkalemia noted. Follow potassium level very closely. Potassium level is normal today Hyperlipidemia: Continue statin therapy. Hypertension: Continue current therapy. Blood pressure goal is 135/85 or less. Peripheral vascular disease: Clinically stable. Type 2 diabetes: Continue good management of diabetes but avoid any hyper or hypoglycemia. Obesity: Patient may have underlying sleep apnea syndrome. Patient will benefit from such evaluation. This can be carried out as an outpatient. Anemia, postop: Patient received 1 unit of blood transfusion. Hemoglobin today 9.2. - Time Time with patient: 15-25 minutes - CODE STATUS was discussed, patient remains full code. Surrogate decision-maker unchanged. Multiple medical problems were addressed. More than 50% of the time spent coordinating care, discussing management plans with involved caregivers. Management plans discussed with involved personnels. Medical decision making was of moderate to high complexity , patient's has multiple comorbidities. Medications reviewed and adjusted accordingly: Yes
[2017-06-22] MEDS: HYDROMORPHONE HCL INJ/PF 2 MG/ML AMPULE IV PRN (20:02)
[2017-06-22] MEDS: LATANOPROST 0.005% OPH SOLN 2.5 ML OU SCH (22:18)
[2017-06-23] MEDS: PIPERACILLIN SODIUM/TAZOBACTAM 3.375 GM in NORMAL SALINE 100 ML IV SCH ×4 (06:25→23:54)
[2017-06-23] MEDS: IPRATROPIUM/ALBUTEROL 0.5-2.5 MG/3 ML AMPUL NEB SCH ×3 (08:09→20:03)
[2017-06-23 09:17] LABS: ABSOLUTE BASOPHILS # (AUTO) 0.1 10^3/uL (0.0-0.2); ABSOLUTE EOSINOPHILS # (AUTO) 0.3 10^3/uL (0.0-0.6); ABSOLUTE LYMPHOCYTES (AUTO) 1.6 10^3/uL (0.5-4.7); ABSOLUTE MONOCYTES (AUTO) 0.7 10^3/uL (0.1-1.4); ABSOLUTE NEUT (AUTO) 7.6 10^3/uL (1.7-8.2); BASOPHILS % (AUTO) 0.6 % (0-2); EOSINOPHILS % (AUTO) 2.6 % (0-6); HEMATOCRIT 28.8 % (36.0-47.0); HEMOGLOBIN 9.5 g/dL (12.0-15.5); HGB HCT DIFFERENCE -0.3; LYMPHOCYTES % (AUTO) 15.8 % (13-45); MEAN CORPUSCULAR HEMOGLOBIN 27.2 pg (27.0-33.4); MEAN CORPUSCULAR HGB CONC 33.1 g/dL (32.0-36.0); MEAN CORPUSCULAR VOLUME 82 fl (80-97); MONOCYTES % (AUTO) 7.2 % (3-13); RED BLOOD COUNT 3.51 10^6/uL (3.72-5.28); SEGMENTED NEUTROPHILS % (AUTO) 73.8 % (42-78); WHITE BLOOD COUNT 10.3 10^3/uL (4.0-10.5)
[2017-06-23] MEDS ORDERED: NORMAL SALINE 1000 ML 1,000 ML IV PRN (09:25)
[2017-06-23] MEDS: METFORMIN HCL 500 MG TABLET PO SCH ×2 (09:34→18:34)
[2017-06-23] MEDS: INSULIN LISPRO 100 UNIT/ML 3 ML VIAL SUBCUT SCH ×3 (09:34→18:42)
[2017-06-23] MEDS: ENOXAPARIN SODIUM INJ 40 MG/0.4 ML DISP.SYRIN SUBCUT SCH (09:37)
[2017-06-23] MEDS: HYDROCHLOROTHIAZIDE 25 MG TABLET PO SCH (09:38)
[2017-06-23] MEDS: ASPIRIN 81 MG TABLET, CHEWABLE PO SCH (09:38)
[2017-06-23] MEDS: OXYCODONE-ACETAMINOPHEN 5-325 MG TABLET PO PRN ×2 (09:38→18:44)
[2017-06-23] MEDS: INSULIN GLARGINE,HUM.REC.ANLOG 300 UNIT/3 ML INSULN.PEN SUBCUT SCH (09:40)
[2017-06-23] MEDS: DOCUSATE SODIUM 100 MG CAPSULE PO SCH ×2 (09:40→18:30)
[2017-06-23] MEDS: TIMOLOL MALEATE 0.25% OPH SOLN 5 ML OU SCH ×2 (09:53→18:34)
[2017-06-23 12:24] LABS: ALANINE AMINOTRANSFERASE 68 U/L (9-52); ALBUMIN 2.5 g/dL (3.5-5.0); ALKALINE PHOSPHATASE 138 U/L (38-126); ANION GAP 11 (5-19); ASPARTATE AMINO TRANSFERASE 85 U/L (14-36); BILIRUBIN,DIRECT 0.3 mg/dL (0.0-0.4); BILIRUBIN,TOTAL 0.4 mg/dL (0.2-1.3); BLOOD UREA NITROGEN 12 mg/dL (7-20); CALCIUM 8.8 mg/dL (8.4-10.2); CARBON DIOXIDE 20 mmol/L (22-30); CHLORIDE 108 mmol/L (98-107); CREATININE RESULT 1.11 mg/dL (0.52-1.25); GLUCOSE 141 mg/dL (75-110); POTASSIUM 4.1 mmol/L (3.6-5.0); SODIUM 138.7 mmol/L (137-145); TOTAL PROTEIN 5.9 g/dL (6.3-8.2)
--- NOTE | 2017-06-23 12:32 | PROGRESS NOTE E ---
Progress Note NAME: MALGORZATA SOSA : 1940 AGE: 77Y DATE: 06/23/2017 ROOM: 404 SUBJECTIVE: She is about 4 days post left below-knee amputation. She is still complaining of pain for the right heel and the left below-knee amputation. OBJECTIVE: On examination, the left BKA remains slightly reddish discolored on the posterior flap. The incision itself appears to be unchanged and appears to be viable. The leg is warm up to the knee. The right heel has dry gangrene on the heel part and mild dark discoloration with a small amount of fluid underneath the skin on the right lateral heel. The foot itself is nice and warm. I again reiterated to the nurse to provide pressure for both the right heel and pressure from the left BKA stump. Dressings were changed on the left BKA stump, as well as the right heel. Her white count is actually low a 10.3, with a hemoglobin of 9.5. Her temperature is 99 degrees Fahrenheit with a heart rate of about 72 per minute, blood pressure 120/47. PLAN: We will reevaluate the stump in the a.m. She may or may not need a higher amputation. We will keep her n.p.o. from midnight tonight and check with Dr. Pearson for the need for above-knee amputation. In the meantime, continue her on IV antibiotic therapy. DICTATING PHYSICIAN: THU BARNEY M.D. [id number] PHY#: [id number] ID: [id number] JOB#: [id number] ACCT: [id number] cc: >
[2017-06-23] MEDS ORDERED: INSULIN LISPRO 100 UNIT/ML 3 ML VIAL SUBCUT ONE (14:30)
--- NOTE | 2017-06-23 16:00 | PDOC PROGRESS REPORT ---
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 Currently complaining of some discomfort in the stump. Pt is denying any chest arm or neck discomfort. Patient denying any PND, orthopnea. Patient denied any sustained palpitations, dizziness, syncope, near syncope. Patient denying any fever chills. There is some concern that patient may need to go to be OR back again for further amputation on the left lower extremity. She is somewhat distressed about this. Review of systems: Rest review of systems negative. Medications: Medications have been reviewed. Physical Exam Vital Signs: Temp Pulse Resp BP Pulse Ox 98.3 F 70 22 H 102/45 L 94 06/23/17 11:29 06/23/17 12:39 06/23/17 11:29 06/23/17 11:29 06/23/17 11:29 Intake & Output 06/22/17 06/23/17 06/24/17 06:59 06:59 06:59 Intake Total 1370 855 480 Output Total 1 Balance 1370 854 480 Weight 112.3 kg 116 kg Exam: GENERAL: well-nourished and in no acute distress. Alert and oriented x3 HEAD: Atraumatic, normocephalic. EYES: Pupils equal round and reactive to light, extraocular movements intact, sclera anicteric, conjunctiva are normal. ENT: TMs normal, nares patent, oropharynx clear without exudates. Moist mucous membranes. No oral ulcerations or bleeding gums noted NECK: supple without lymphadenopathy. Trachea is central. No cervical or axillary lymphadenopathy noted. Carotids are 2+, JVD WNL LUNGS: Respiration seems nonlabored, no significant accessory muscle action noted. Breath sounds clear to auscultation bilaterally and equal noted. No wheezes rales or rhonchi noted. No significant dullness noted on percussion. CHEST: Palpation of the chest wall shows no significant chest wall tenderness. No other significant abnormalities noted. HEART: [place] [employer], No PSH, 1/6 DEEPTHI aortic area, 1/6 steven systolic murmur mitral area, no rubs, no gallops. ABDOMEN: Soft, no significant tenderness appreciated, normoactive bowel sounds. No guarding, no rebound. No rigidity noted . No masses appreciated. EXTREMITIES: Pedal pulses are 1-2+, no calf tenderness noted. No clubbing or cyanosis.trace to 1+ pedal edema noted. Below-knee amputation left side. This is in bandage. NEUROLOGICAL: Focused neurological exam showed no significant neurologic deficit. Normal speech, no focal weakness appreciated. PSYCH: Normal mood, normal affect. Judgment and insight within normal limits. SKIN: No significant ecchymosis, rash, ulcerations or signs of pruritus noted. MUSCULOSKELETAL EXAM: No significant joint swelling noted. Results Laboratory Results: 06/23/17 08:59 06/23/17 08:59 06/22/17 06/23/17 06/23/17 04:15 08:59 08:59 WBC 10.3 RBC 3.51 L Hgb 9.5 L Hct 28.8 L MCV 82 MCH 27.2 MCHC 33.1 RDW 15.0 H Plt Count 411 Seg Neutrophils % 73.8 Lymphocytes % 15.8 Monocytes % 7.2 Eosinophils % 2.6 Basophils % 0.6 Absolute Neutrophils 7.6 Absolute Lymphocytes 1.6 Absolute Monocytes 0.7 Absolute Eosinophils 0.3 Absolute Basophils 0.1 Sodium 140.3 138.7 Potassium 4.2 4.1 Chloride 112 H 108 H Carbon Dioxide 20 L 20 L Anion Gap 8 11 BUN 14 12 Creatinine 1.03 1.11 Est GFR ( Amer) > 60 58 L Est GFR (Non-Af Amer) 52 L 48 L Glucose 37 L* 141 H Calcium 8.7 8.8 Magnesium Total Bilirubin 0.4 AST 85 H ALT 68 H Alkaline Phosphatase 138 H Total Protein 5.9 L Albumin 2.5 L 06/23/17 08:59 WBC RBC Hgb Hct MCV MCH MCHC RDW Plt Count Seg Neutrophils % Lymphocytes % Monocytes % Eosinophils % Basophils % Absolute Neutrophils Absolute Lymphocytes Absolute Monocytes Absolute Eosinophils Absolute Basophils Sodium Potassium Chloride Carbon Dioxide Anion Gap BUN Creatinine Est GFR ( Amer) Est GFR (Non-Af Amer) Glucose Calcium Magnesium 1.6 Total Bilirubin AST ALT Alkaline Phosphatase Total Protein Albumin 06/17/17 22:24 Blood Blood Culture - Final NO GROWTH IN 5 DAYS 06/17/17 20:35 Blood Blood Culture - Final NO GROWTH IN 5 DAYS EKG Comments: Telemetry strips were reviewed and shows increased ventricular ectopy. Patient was placed back on the monitor today. Assessment & Plan - Diagnosis (1) Ventricular dysrhythmia Is this a current diagnosis for this admission?: Yes (2) Hyperkalemia Is this a current diagnosis for this admission?: Yes (3) Diabetic foot ulcers Qualifiers: Diabetic foot ulcer location: unspecified part of foot Diabetes mellitus type: type 2 Laterality: left Non-pressure ulcer stage: unspecified non-pressure ulcer stage Qualified Code(s): E11.621 - Type 2 diabetes mellitus with foot ulcer; L97.509 - Non-pressure chronic ulcer of other part of unspecified foot with unspecified severity Is this a current diagnosis for this admission?: Yes (4) Hyperlipidemia Qualifiers: Hyperlipidemia type: unspecified Qualified Code(s): E78.5 - Hyperlipidemia, unspecified Is this a current diagnosis for this admission?: Yes (5) Hypertension Qualifiers: Hypertension type: essential hypertension Qualified Code(s): I10 - Essential (primary) hypertension Is this a current diagnosis for this admission?: Yes (6) Peripheral vascular disease Is this a current diagnosis for this admission?: Yes (7) Type 2 diabetes mellitus Qualifiers: Diabetes mellitus complication status: with other specified complication Diabetes mellitus prison insulin use: unspecified prison insulin use status Qualified Code(s): E11.69 - Type 2 diabetes mellitus with other specified complication; Z79.4 - jail (current) use of insulin Is this a current diagnosis for this admission?: Yes - Notes Notes: Ventricular dysrhythmia: Patient showing increased ventricular ectopy, patient placed back on the monitor. Will order an EKG for tomorrow. Hyperkalemia: Seems to have resolved. Follow potassium level very closely. Potassium level is normal today. Have ordered a magnesium level. Hyperlipidemia: Continue statin therapy. Hypertension: Continue current therapy. Blood pressure goal is 135/85 or less. Peripheral vascular disease: Clinically stable. Type 2 diabetes: Continue good management of diabetes but avoid any hyper or hypoglycemia. Obesity: Patient may have underlying sleep apnea syndrome. Patient will benefit from such evaluation. This can be carried out as an outpatient. Anemia, postop: Patient received 1 unit of blood transfusion, this admission. Continue to follow hemoglobin. Hemoglobin 9.5 g percent today - Time Time with patient: 15-25 minutes - CODE STATUS was discussed, patient remains full code. Surrogate decision-maker unchanged. Multiple medical problems were addressed. More than 50% of the time spent coordinating care, discussing management plans with involved caregivers. Management plans discussed with involved personnels. Medical decision making was of moderate to high complexity , patient's has multiple comorbidities. Medications reviewed and adjusted accordingly: Yes
--- NOTE | 2017-06-23 16:46 | PDOC PROGRESS REPORT ---
Subjective Progress Note for:: 06/23/17 Subjective:: She had episode of diarrhea, she may have to go to the operative room for further surgery on the stump because it is infected Physical Exam Vital Signs: Temp Pulse Resp BP Pulse Ox 98.4 F 71 21 H 112/55 L 97 06/23/17 15:49 06/23/17 15:49 06/23/17 15:49 06/23/17 15:49 06/23/17 15:49 Intake & Output 06/22/17 06/23/17 06/24/17 06:59 06:59 06:59 Intake Total 1370 855 480 Output Total 1 Balance 1370 854 480 Weight 112.3 kg 116 kg General appearance: PRESENT: no acute distress Eye exam: PRESENT: PERRLA Respiratory exam: PRESENT: clear to auscultation caity Cardiovascular exam: PRESENT: +S1, +S2 GI/Abdominal exam: PRESENT: soft Neurological exam: PRESENT: alert, CN II-XII grossly intact Results Laboratory Results: 06/23/17 08:59 06/23/17 08:59 06/22/17 06/23/17 06/23/17 04:15 08:59 08:59 WBC 10.3 RBC 3.51 L Hgb 9.5 L Hct 28.8 L MCV 82 MCH 27.2 MCHC 33.1 RDW 15.0 H Plt Count 411 Seg Neutrophils % 73.8 Lymphocytes % 15.8 Monocytes % 7.2 Eosinophils % 2.6 Basophils % 0.6 Absolute Neutrophils 7.6 Absolute Lymphocytes 1.6 Absolute Monocytes 0.7 Absolute Eosinophils 0.3 Absolute Basophils 0.1 Sodium 140.3 138.7 Potassium 4.2 4.1 Chloride 112 H 108 H Carbon Dioxide 20 L 20 L Anion Gap 8 11 BUN 14 12 Creatinine 1.03 1.11 Est GFR ( Amer) > 60 58 L Est GFR (Non-Af Amer) 52 L 48 L Glucose 37 L* 141 H Calcium 8.7 8.8 Magnesium Total Bilirubin 0.4 AST 85 H ALT 68 H Alkaline Phosphatase 138 H Total Protein 5.9 L Albumin 2.5 L 06/23/17 08:59 WBC RBC Hgb Hct MCV MCH MCHC RDW Plt Count Seg Neutrophils % Lymphocytes % Monocytes % Eosinophils % Basophils % Absolute Neutrophils Absolute Lymphocytes Absolute Monocytes Absolute Eosinophils Absolute Basophils Sodium Potassium Chloride Carbon Dioxide Anion Gap BUN Creatinine Est GFR ( Amer) Est GFR (Non-Af Amer) Glucose Calcium Magnesium 1.6 Total Bilirubin AST ALT Alkaline Phosphatase Total Protein Albumin 06/17/17 22:24 Blood Blood Culture - Final NO GROWTH IN 5 DAYS 06/17/17 20:35 Blood Blood Culture - Final NO GROWTH IN 5 DAYS Assessment & Plan - Diagnosis (1) Anemia Qualifiers: Anemia type: other cause Is this a current diagnosis for this admission?: Yes (2) Chronic back pain Qualifiers: Back pain location: low back pain Is this a current diagnosis for this admission?: Yes (3) Diabetic foot ulcers Qualifiers: Diabetic foot ulcer location: unspecified part of foot Diabetes mellitus type: type 2 Laterality: left Non-pressure ulcer stage: unspecified non-pressure ulcer stage Qualified Code(s): E11.621 - Type 2 diabetes mellitus with foot ulcer; L97.509 - Non-pressure chronic ulcer of other part of unspecified foot with unspecified severity Is this a current diagnosis for this admission?: Yes (4) Hyperkalemia Is this a current diagnosis for this admission?: Yes (5) Hyperkalemia Is this a current diagnosis for this admission?: Yes (6) Hyperlipidemia Qualifiers: Hyperlipidemia type: unspecified Qualified Code(s): E78.5 - Hyperlipidemia, unspecified Is this a current diagnosis for this admission?: Yes (7) Hypertension Qualifiers: Hypertension type: essential hypertension Qualified Code(s): I10 - Essential (primary) hypertension Is this a current diagnosis for this admission?: Yes (8) Ischemic neuropathy of left foot Is this a current diagnosis for this admission?: Yes (9) Leukocytosis Qualifiers: Leukocytosis type: unspecified Qualified Code(s): D72.829 - Elevated white blood cell count, unspecified Is this a current diagnosis for this admission?: Yes (10) Obesity Qualifiers: Obesity type: unspecified obesity type Is this a current diagnosis for this admission?: Yes (11) Peripheral vascular disease Is this a current diagnosis for this admission?: Yes (12) Type 2 diabetes mellitus Qualifiers: Diabetes mellitus complication status: with other specified complication Diabetes mellitus manager intermediate insulin use: unspecified manager intermediate insulin use status Qualified Code(s): E11.69 - Type 2 diabetes mellitus with other specified complication; Z79.4 - [facility] (current) use of insulin Is this a current diagnosis for this admission?: Yes (13) Diarrhea Qualifiers: Diarrhea type: unspecified type Qualified Code(s): R19.7 - Diarrhea , unspecified Is this a current diagnosis for this admission?: YesPlan: The stool is negative for clostridium difficile toxin, and we will avoid antidiarrheal agent in this patient will start IV fluid to replace lost electrolytes
[2017-06-23] MEDS: LATANOPROST 0.005% OPH SOLN 2.5 ML OU SCH (21:45)
[2017-06-23] MEDS: HYDROMORPHONE HCL INJ/PF 2 MG/ML AMPULE IV PRN (23:54)
[2017-06-24] MEDS ORDERED: PIPERACILLIN/TAZOBACTAM 3.375 GM VIAL IV ONE (05:20)
[2017-06-24] MEDS: PIPERACILLIN SODIUM/TAZOBACTAM 3.375 GM in NORMAL SALINE 100 ML IV SCH ×4 (06:35→23:45)
--- NOTE | 2017-06-24 07:52 | EKG REPORT ---
SEVERITY:- ABNORMAL ECG - SINUS RHYTHM VENTRICULAR BIGEMINY LAD, CONSIDER LEFT ANTERIOR FASCICULAR BLOCK : Confirmed by: Sagar Chaidez 24-Jun-2017 07:50:59
[2017-06-24] MEDS ORDERED: NORMAL SALINE 1000 ML 1,000 ML IV PRN (08:08)
[2017-06-24] MEDS: IPRATROPIUM/ALBUTEROL 0.5-2.5 MG/3 ML AMPUL NEB SCH ×3 (08:15→19:56)
[2017-06-24] MEDS: METFORMIN HCL 500 MG TABLET PO SCH ×2 (08:27→16:45)
[2017-06-24] MEDS: INSULIN LISPRO 100 UNIT/ML 3 ML VIAL SUBCUT SCH (08:40)
--- NOTE | 2017-06-24 08:47 | PDOC PROGRESS REPORT ---
Subjective Progress Note for:: 06/24/17 Subjective:: Patient states she is feeling better; still having pain in the stump. She has not been out of bed with physical therapy. Physical Exam Vital Signs: Temp Pulse Resp BP Pulse Ox 98.2 F 67 14 129/81 H 93 06/24/17 07:27 06/24/17 08:12 06/24/17 08:12 06/24/17 07:27 06/24/17 08:12 Intake & Output 06/23/17 06/24/17 06/25/17 06:59 06:59 06:59 Intake Total 855 480 Output Total 1 Balance 854 480 Weight 116 kg 120 kg General appearance: PRESENT: no acute distress Musculoskeletal exam: PRESENT: other - Dressing removed no foul smell; a little bloody drainage. Approximately 4 nando removed at site of bloody drainage. No further discharge. In the superior skin flap looks fine. There is some areas of epidermal lysis along the inferior flap. The inferior flap is somewhat injected but not threatened. Results Laboratory Results: 06/23/17 08:59 06/23/17 08:59 06/23/17 06/23/17 06/23/17 08:59 08:59 08:59 WBC 10.3 RBC 3.51 L Hgb 9.5 L Hct 28.8 L MCV 82 MCH 27.2 MCHC 33.1 RDW 15.0 H Plt Count 411 Seg Neutrophils % 73.8 Lymphocytes % 15.8 Monocytes % 7.2 Eosinophils % 2.6 Basophils % 0.6 Absolute Neutrophils 7.6 Absolute Lymphocytes 1.6 Absolute Monocytes 0.7 Absolute Eosinophils 0.3 Absolute Basophils 0.1 Sodium 138.7 Potassium 4.1 Chloride 108 H Carbon Dioxide 20 L Anion Gap 11 BUN 12 Creatinine 1.11 Est GFR ( Amer) 58 L Est GFR (Non-Af Amer) 48 L Glucose 141 H Calcium 8.8 Magnesium 1.6 Total Bilirubin 0.4 AST 85 H ALT 68 H Alkaline Phosphatase 138 H Total Protein 5.9 L Albumin 2.5 L Assessment & Plan - Diagnosis (1) Ischemic neuropathy of left foot Is this a current diagnosis for this admission?: Yes (2) Diabetic foot ulcers Qualifiers: Diabetic foot ulcer location: unspecified part of foot Diabetes mellitus type: type 2 Laterality: left Non-pressure ulcer stage: unspecified non-pressure ulcer stage Qualified Code(s): E11.621 - Type 2 diabetes mellitus with foot ulcer; L97.509 - Non-pressure chronic ulcer of other part of unspecified foot with unspecified severity Is this a current diagnosis for this admission?: YesPlan: Postoperative day 5 left BKA with challenged but not threatened posterior skin flap. In the absence of fever, leukocytosis, or any overt signs of infection, I would leave this stump alone, cannot open it or subjective patient to a higher level of amputation at this time. Furthermore, patient has decent early range of motion. Plan: 1. Continue dressing changes Get patient had a bed with physical therapy 3. Continue intravenous antibiotics.
[2017-06-24] MEDS: TIMOLOL MALEATE 0.25% OPH SOLN 5 ML OU SCH ×2 (09:48→18:07)
[2017-06-24] MEDS: HYDROCHLOROTHIAZIDE 25 MG TABLET PO SCH (09:50)
[2017-06-24] MEDS: DOCUSATE SODIUM 100 MG CAPSULE PO SCH ×2 (09:50→18:06)
--- NOTE | 2017-06-24 11:02 | PDOC PROGRESS REPORT ---
Subjective Progress Note for:: 06/24/17 Subjective:: Patient is currently doing fair. Patient's denied any chest pain denied any shortness of the breath. Patient's also seen by the general surgery and suggest no need for any further surgical intervention and suggest the continues to IV antibiotic for the next 24 -48 hours and may be switched to the p.o. antibiotic Physical Exam Vital Signs: Temp Pulse Resp BP Pulse Ox 98.2 F 67 14 129/81 H 93 06/24/17 07:27 06/24/17 08:12 06/24/17 08:12 06/24/17 07:27 06/24/17 08:12 Intake & Output 06/23/17 06/24/17 06/25/17 06:59 06:59 06:59 Intake Total 855 480 Output Total 1 Balance 854 480 Weight 116 kg 120 kg General appearance: PRESENT: no acute distress, well-developed, well-nourished Head exam: PRESENT: atraumatic, normocephalic Eye exam: PRESENT: conjunctiva pink, EOMI, PERRLA. ABSENT: scleral icterus Ear exam: PRESENT: normal external ear exam Mouth exam: PRESENT: moist, tongue midline Neck exam: PRESENT: full ROM. ABSENT: carotid bruit, JVD, lymphadenopathy, thyromegaly Respiratory exam: PRESENT: clear to auscultation caity Cardiovascular exam: PRESENT: RRR. ABSENT: diastolic murmur, rubs, systolic murmur Pulses: PRESENT: normal dorsalis pedis pul, +2 pedal pulses bilateral Vascular exam: PRESENT: normal capillary refill GI/Abdominal exam: PRESENT: normal bowel sounds, soft. ABSENT: distended, guarding, mass, organolmegaly, rebound, tenderness Rectal exam: PRESENT: deferred Extremities exam: PRESENT: left BKA Additional comments: Dressing is intact Neurological exam: PRESENT: alert, awake, oriented to person, oriented to place , oriented to time, oriented to situation, CN II-XII grossly intact. ABSENT: motor sensory deficit Psychiatric exam: PRESENT: appropriate affect, normal mood. ABSENT: homicidal ideation, suicidal ideation Skin exam: PRESENT: dry, intact, warm. ABSENT: cyanosis, rash Results Laboratory Results: 06/23/17 08:59 06/23/17 08:59 06/23/17 06/23/17 08:59 08:59 Sodium 138.7 Potassium 4.1 Chloride 108 H Carbon Dioxide 20 L Anion Gap 11 BUN 12 Creatinine 1.11 Est GFR ( Amer) 58 L Est GFR (Non-Af Amer) 48 L Glucose 141 H Calcium 8.8 Magnesium 1.6 Total Bilirubin 0.4 AST 85 H ALT 68 H Alkaline Phosphatase 138 H Total Protein 5.9 L Albumin 2.5 L Assessment & Plan - Diagnosis (1) Diabetic foot ulcers Qualifiers: Diabetic foot ulcer location: unspecified part of foot Diabetes mellitus type: type 2 Laterality: left Non-pressure ulcer stage: unspecified non-pressure ulcer stage Qualified Code(s): E11.621 - Type 2 diabetes mellitus with foot ulcer; L97.509 - Non-pressure chronic ulcer of other part of unspecified foot with unspecified severity Is this a current diagnosis for this admission?: YesPlan: Status post surgery continues to IV antibiotic as per discussed with the general surgery suggest that if the patient's remained afebrile may be a switch to the p.o. antibiotic in the next 48 hours (2) Type 2 diabetes mellitus Qualifiers: Diabetes mellitus complication status: with other specified complication Diabetes mellitus emt intermediate insulin use: unspecified halfway insulin use status Qualified Code(s): E11.69 - Type 2 diabetes mellitus with other specified complication; Z79.4 - shelter (current) use of insulin Is this a current diagnosis for this admission?: YesPlan: Continue sliding scale and continues to current medications (3) Hypertension Qualifiers: Hypertension type: essential hypertension Qualified Code(s): I10 - Essential (primary) hypertension Is this a current diagnosis for this admission?: YesPlan: Continues current medications (4) Hyperlipidemia Qualifiers: Hyperlipidemia type: unspecified Qualified Code(s): E78.5 - Hyperlipidemia, unspecified Is this a current diagnosis for this admission?: Yes (5) Obesity Qualifiers: Obesity type: unspecified obesity type Is this a current diagnosis for this admission?: Yes (6) Chronic back pain Qualifiers: Back pain location: low back pain Is this a current diagnosis for this admission?: YesPlan: Patients follow with the Neurosurgeon and is all conservative management (7) Peripheral vascular disease Is this a current diagnosis for this admission?: Yes (8) Ischemic neuropathy of left foot Is this a current diagnosis for this admission?: YesPlan: Status post left BKA (9) Leukocytosis Qualifiers: Leukocytosis type: unspecified Qualified Code(s): D72.829 - Elevated white blood cell count, unspecified Is this a current diagnosis for this admission?: Yes (10) Hyperkalemia Is this a current diagnosis for this admission?: Yes (11) Anemia Qualifiers: Anemia type: other cause Is this a current diagnosis for this admission?: YesPlan: Currently stable - Time Time Spent with patient: 15-24 minutes Medications reviewed and adjusted accordingly: Yes Anticipated discharge: Home with Homehealth Within: Other - Inpatient Certification Medical Necessity: Need Close Monitoring Due to Risk of Patient Decompensation, Need for IV Antibiotics Post Hospital Care: D/C Instructor Traffic Safety Documentation - Plan Summary Plan Summary: start pt cont curr med
[2017-06-24] MEDS: INSULIN LISPRO 100 UNIT/ML 3 ML VIAL SUBCUT PRN ×3 (12:27→21:35)
[2017-06-24] MEDS: OXYCODONE-ACETAMINOPHEN 5-325 MG TABLET PO PRN ×2 (16:23→22:31)
[2017-06-24] MEDS: HYDROMORPHONE HCL INJ/PF 2 MG/ML AMPULE IV PRN (19:53)
[2017-06-24] MEDS: LATANOPROST 0.005% OPH SOLN 2.5 ML OU SCH (21:35)
[2017-06-25 05:21] LABS: ABSOLUTE BASOPHILS # (AUTO) 0.1 10^3/uL (0.0-0.2); ABSOLUTE EOSINOPHILS # (AUTO) 0.2 10^3/uL (0.0-0.6); ABSOLUTE LYMPHOCYTES (AUTO) 1.6 10^3/uL (0.5-4.7); ABSOLUTE MONOCYTES (AUTO) 0.7 10^3/uL (0.1-1.4); ABSOLUTE NEUT (AUTO) 5.9 10^3/uL (1.7-8.2); BASOPHILS % (AUTO) 0.8 % (0-2); EOSINOPHILS % (AUTO) 2.9 % (0-6); HEMATOCRIT 28.6 % (36.0-47.0); HEMOGLOBIN 9.4 g/dL (12.0-15.5); HGB HCT DIFFERENCE -0.4; LYMPHOCYTES % (AUTO) 18.9 % (13-45); MEAN CORPUSCULAR HGB CONC 32.9 g/dL (32.0-36.0); MEAN CORPUSCULAR VOLUME 82 fl (80-97); MONOCYTES % (AUTO) 8.1 % (3-13); RED BLOOD COUNT 3.48 10^6/uL (3.72-5.28); RED CELL DISTRIBUTION WIDTH 15.5 % (11.5-14.0); SEGMENTED NEUTROPHILS % (AUTO) 69.3 % (42-78); WHITE BLOOD COUNT 8.5 10^3/uL (4.0-10.5)
[2017-06-25 05:52] LABS: ANION GAP 9 (5-19); BLOOD UREA NITROGEN 10 mg/dL (7-20); CARBON DIOXIDE 20 mmol/L (22-30); CHLORIDE 111 mmol/L (98-107); CREATININE RESULT 0.99 mg/dL (0.52-1.25); GLUCOSE 163 mg/dL (75-110); POTASSIUM 4.2 mmol/L (3.6-5.0); SODIUM 140.1 mmol/L (137-145)
[2017-06-25] MEDS: PIPERACILLIN SODIUM/TAZOBACTAM 3.375 GM in NORMAL SALINE 100 ML IV SCH ×3 (06:05→18:06)
[2017-06-25] MEDS: IPRATROPIUM/ALBUTEROL 0.5-2.5 MG/3 ML AMPUL NEB SCH ×3 (07:51→19:40)
[2017-06-25] MEDS: INSULIN LISPRO 100 UNIT/ML 3 ML VIAL SUBCUT PRN ×2 (08:02→18:07)
[2017-06-25] MEDS: METFORMIN HCL 500 MG TABLET PO SCH ×2 (08:02→18:06)
[2017-06-25] MEDS: INSULIN LISPRO 100 UNIT/ML 3 ML VIAL SUBCUT SCH ×3 (08:02→18:06)
--- NOTE | 2017-06-25 09:07 | PDOC PROGRESS REPORT ---
Subjective Progress Note for:: 06/25/17 Subjective:: Patient claims she has less pains on the left BKA. Also less pains along the right heel. Physical Exam Vital Signs: Temp Pulse Resp BP Pulse Ox 98.3 F 84 20 146/76 H 100 06/25/17 07:57 06/25/17 07:57 06/25/17 07:57 06/25/17 07:57 06/25/17 07:57 Intake & Output 06/24/17 06/25/17 06/26/17 06:59 06:59 06:59 Intake Total 480 1100 Balance 480 1100 Weight 120 kg 120.4 kg Exam: Both dressings for the right heel with a boot and the left BKA dressings are intact. This no redness or tenderness about the left knee area. Results Laboratory Results: 06/25/17 04:52 06/25/17 04:52 06/25/17 06/25/17 04:52 04:52 WBC 8.5 RBC 3.48 L Hgb 9.4 L Hct 28.6 L MCV 82 MCH 27.0 MCHC 32.9 RDW 15.5 H Plt Count 428 Seg Neutrophils % 69.3 Lymphocytes % 18.9 Monocytes % 8.1 Eosinophils % 2.9 Basophils % 0.8 Absolute Neutrophils 5.9 Absolute Lymphocytes 1.6 Absolute Monocytes 0.7 Absolute Eosinophils 0.2 Absolute Basophils 0.1 Sodium 140.1 Potassium 4.2 Chloride 111 H Carbon Dioxide 20 L Anion Gap 9 BUN 10 Creatinine 0.99 Est GFR ( Amer) > 60 Est GFR (Non-Af Amer) 55 L Glucose 163 H Calcium 9.0 Assessment & Plan - Diagnosis (1) Anemia Qualifiers: Anemia type: other cause Is this a current diagnosis for this admission?: YesPlan: Monitor H&H (2) Diabetic foot ulcers Qualifiers: Diabetic foot ulcer location: heel Diabetes mellitus type: type 2 Laterality: right Non-pressure ulcer stage: unspecified non-pressure ulcer stage Qualified Code(s): E11.621 - Type 2 diabetes mellitus with foot ulcer; L97.419 - Non-pressure chronic ulcer of right heel and midfoot with unspecified severity Is this a current diagnosis for this admission?: YesPlan: Continue right foot protector. (3) Diarrhea Qualifiers: Diarrhea type: unspecified type Qualified Code(s): R19.7 - Diarrhea , unspecified Is this a current diagnosis for this admission?: Yes (4) Hyperkalemia Is this a current diagnosis for this admission?: Yes (5) Hyperlipidemia Qualifiers: Hyperlipidemia type: unspecified Qualified Code(s): E78.5 - Hyperlipidemia, unspecified Is this a current diagnosis for this admission?: Yes (6) Hypertension Qualifiers: Hypertension type: essential hypertension Qualified Code(s): I10 - Essential (primary) hypertension Is this a current diagnosis for this admission?: Yes (7) S/P BKA (below knee amputation) Qualifiers: Laterality: left Qualified Code(s): Z89.512 - Acquired absence of left leg below knee Is this a current diagnosis for this admission?: YesPlan: Observation of left BKA stump. It has been quite stable so far. - Time Time Spent with patient: 15-24 minutes
--- NOTE | 2017-06-25 09:52 | RADIOLOGY REPORT (SQ) ---
EXAM DESCRIPTION: CHEST SINGLE VIEW COMPLETED DATE/TIME: 06/25/2017 9:07 am REASON FOR STUDY: sob COMPARISON: Chest films 12/15/2008, 08/30/2016, 05/31/2017 EXAM PARAMETERS: NUMBER OF VIEWS: One view. TECHNIQUE: Single frontal radiographic view of the chest acquired. RADIATION DOSE: NA LIMITATIONS: Obese patient portable technique FINDINGS: LUNGS AND PLEURA: Pulmonary vascular congestion is present with mild alveolar and intersti tial edema. No pleural effusion. No pneumothorax. MEDIASTINUM AND HILAR STRUCTURES: No masses. Contour normal. HEART AND VASCULAR STRUCTURES: Mild cardiomegaly. Normal vasculature. BONES: No acute findings. HARDWARE: None in the chest. OTHER: No other significant finding. IMPRESSION: Fluid overload or congestive failure with pulmonary vascular prominence and mild alveola r and interstitial edema TECHNICAL DOCUMENTATION: JOB ID: [id number]
[2017-06-25] MEDS: HYDROCHLOROTHIAZIDE 25 MG TABLET PO SCH (09:55)
[2017-06-25] MEDS: OXYCODONE-ACETAMINOPHEN 5-325 MG TABLET PO PRN (09:55)
[2017-06-25] MEDS: TIMOLOL MALEATE 0.25% OPH SOLN 5 ML OU SCH ×2 (09:56→18:07)
[2017-06-25] MEDS: ENOXAPARIN SODIUM INJ 40 MG/0.4 ML DISP.SYRIN SUBCUT SCH (09:57)
[2017-06-25] MEDS ORDERED: FUROSEMIDE INJ/PF 40 MG/4 ML SDV IV ONE (13:42)
--- NOTE | 2017-06-25 13:45 | PDOC PROGRESS REPORT ---
Subjective Progress Note for:: 06/25/17 Subjective:: Patient is complaining with some mild short of breath but no chest pain. Patient also complains of some loose stool. Patient's denied any fever denied any headache no abdominal pain no nausea no vomiting Physical Exam Vital Signs: Temp Pulse Resp BP Pulse Ox 98.4 F 69 19 147/58 H 99 06/25/17 11:41 06/25/17 11:41 06/25/17 11:41 06/25/17 11:41 06/25/17 11:41 Intake & Output 06/24/17 06/25/17 06/26/17 06:59 06:59 06:59 Intake Total 480 1100 620 Output Total 3 Balance 480 1100 617 Weight 120 kg 120.4 kg General appearance: PRESENT: no acute distress, well-developed, well-nourished Head exam: PRESENT: atraumatic, normocephalic Eye exam: PRESENT: conjunctiva pink, EOMI, PERRLA. ABSENT: scleral icterus Ear exam: PRESENT: normal external ear exam Mouth exam: PRESENT: moist, tongue midline Neck exam: PRESENT: full ROM. ABSENT: carotid bruit, JVD, lymphadenopathy, thyromegaly Respiratory exam: PRESENT: decreased breath sounds Cardiovascular exam: PRESENT: RRR. ABSENT: diastolic murmur, rubs, systolic murmur Pulses: PRESENT: normal dorsalis pedis pul, +2 pedal pulses bilateral Vascular exam: PRESENT: normal capillary refill GI/Abdominal exam: PRESENT: normal bowel sounds, soft. ABSENT: distended, guarding, mass, organolmegaly, rebound, tenderness Rectal exam: PRESENT: deferred Extremities exam: PRESENT: left BKA Additional comments: Dressing is intact Neurological exam: PRESENT: alert, awake, oriented to person, oriented to place , oriented to time, oriented to situation, CN II-XII grossly intact. ABSENT: motor sensory deficit Psychiatric exam: PRESENT: appropriate affect, normal mood. ABSENT: homicidal ideation, suicidal ideation Skin exam: PRESENT: dry, intact, warm. ABSENT: cyanosis, rash Results Laboratory Results: 06/25/17 04:52 06/25/17 04:52 06/25/17 06/25/17 04:52 04:52 WBC 8.5 RBC 3.48 L Hgb 9.4 L Hct 28.6 L MCV 82 MCH 27.0 MCHC 32.9 RDW 15.5 H Plt Count 428 Seg Neutrophils % 69.3 Lymphocytes % 18.9 Monocytes % 8.1 Eosinophils % 2.9 Basophils % 0.8 Absolute Neutrophils 5.9 Absolute Lymphocytes 1.6 Absolute Monocytes 0.7 Absolute Eosinophils 0.2 Absolute Basophils 0.1 Sodium 140.1 Potassium 4.2 Chloride 111 H Carbon Dioxide 20 L Anion Gap 9 BUN 10 Creatinine 0.99 Est GFR ( Amer) > 60 Est GFR (Non-Af Amer) 55 L Glucose 163 H Calcium 9.0 Impressions: Chest X-Ray 06/25/17 00:00 IMPRESSION: Fluid overload or congestive failure with pulmonary vascular prominence and mild alveolar and interstitial edema Assessment & Plan - Diagnosis (1) Diabetic foot ulcers Qualifiers: Diabetic foot ulcer location: heel Diabetes mellitus type: type 2 Laterality: right Non-pressure ulcer stage: unspecified non-pressure ulcer stage Qualified Code(s): E11.621 - Type 2 diabetes mellitus with foot ulcer; L97.509 - Non-pressure chronic ulcer of other part of unspecified foot with unspecified severity Is this a current diagnosis for this admission?: YesPlan: Status post surgery continues to IV antibiotic as per discussed with the general surgery suggest that if the patient's remained afebrile may be a switch to the p.o. antibiotic in the next 48 hours (2) Type 2 diabetes mellitus Qualifiers: Diabetes mellitus complication status: with other specified complication Diabetes mellitus intermediate manager insulin use: unspecified intermediate manager insulin use status Qualified Code(s): E11.69 - Type 2 diabetes mellitus with other specified complication; Z79.4 - jail (current) use of insulin Is this a current diagnosis for this admission?: YesPlan: Continue sliding scale and continues to current medications (3) Hypertension Qualifiers: Hypertension type: essential hypertension Qualified Code(s): I10 - Essential (primary) hypertension Is this a current diagnosis for this admission?: YesPlan: Continues current medications (4) Hyperlipidemia Qualifiers: Hyperlipidemia type: unspecified Qualified Code(s): E78.5 - Hyperlipidemia, unspecified Is this a current diagnosis for this admission?: Yes (5) Obesity Qualifiers: Obesity type: unspecified obesity type Is this a current diagnosis for this admission?: Yes (6) Chronic back pain Qualifiers: Back pain location: low back pain Is this a current diagnosis for this admission?: Yes (7) Peripheral vascular disease Is this a current diagnosis for this admission?: Yes (8) Ischemic neuropathy of left foot Is this a current diagnosis for this admission?: YesPlan: Status post left BKA (9) Leukocytosis Qualifiers: Leukocytosis type: unspecified Qualified Code(s): D72.829 - Elevated white blood cell count, unspecified Is this a current diagnosis for this admission?: Yes (10) Hyperkalemia Is this a current diagnosis for this admission?: Yes (11) Anemia Qualifiers: Anemia type: other cause Is this a current diagnosis for this admission?: YesPlan: Currently stable (12) Diarrhea Qualifiers: Diarrhea type: unspecified type Qualified Code(s): R19.7 - Diarrhea , unspecified Is this a current diagnosis for this admission?: YesPlan: The C. difficile is negative most likely antibiotic related will try the patient and the Questran powder - Time Time Spent with patient: 15-24 minutes Medications reviewed and adjusted accordingly: Yes Anticipated discharge: SNF Within: Other - Inpatient Certification Medical Necessity: Need Close Monitoring Due to Risk of Patient Decompensation - Plan Summary Plan Summary: Chest x-ray shows some pulmonary vascular congestions will give IV Lasix stop the IV fluid and discuss about the patient's to get the physical therapy and out of the bed
[2017-06-25] MEDS: LATANOPROST 0.005% OPH SOLN 2.5 ML OU SCH (21:17)
[2017-06-25] MEDS: CHOLESTYRAMINE/ASPARTAME 4 GM PACKET PO SCH (21:17)
[2017-06-25] MEDS: INSULIN GLARGINE,HUM.REC.ANLOG 300 UNIT/3 ML INSULN.PEN SUBCUT SCH (21:26)
[2017-06-26] MEDS: PIPERACILLIN SODIUM/TAZOBACTAM 3.375 GM in NORMAL SALINE 100 ML IV SCH ×4 (00:33→17:04)
[2017-06-26] MEDS: OXYCODONE-ACETAMINOPHEN 5-325 MG TABLET PO PRN ×2 (03:24→14:13)
[2017-06-26 05:57] LABS: ABSOLUTE BASOPHILS # (AUTO) 0.1 10^3/uL (0.0-0.2); ABSOLUTE EOSINOPHILS # (AUTO) 0.2 10^3/uL (0.0-0.6); ABSOLUTE LYMPHOCYTES (AUTO) 1.4 10^3/uL (0.5-4.7); ABSOLUTE MONOCYTES (AUTO) 0.6 10^3/uL (0.1-1.4); ABSOLUTE NEUT (AUTO) 6.6 10^3/uL (1.7-8.2); BASOPHILS % (AUTO) 0.8 % (0-2); EOSINOPHILS % (AUTO) 2.4 % (0-6); HEMATOCRIT 29.7 % (36.0-47.0); HEMOGLOBIN 9.9 g/dL (12.0-15.5); LYMPHOCYTES % (AUTO) 15.2 % (13-45); MEAN CORPUSCULAR HEMOGLOBIN 27.2 pg (27.0-33.4); MEAN CORPUSCULAR HGB CONC 33.4 g/dL (32.0-36.0); MEAN CORPUSCULAR VOLUME 81 fl (80-97); MONOCYTES % (AUTO) 7.2 % (3-13); RED BLOOD COUNT 3.66 10^6/uL (3.72-5.28); RED CELL DISTRIBUTION WIDTH 15.1 % (11.5-14.0); SEGMENTED NEUTROPHILS % (AUTO) 74.4 % (42-78)
[2017-06-26 06:09] LABS: ANION GAP 11 (5-19); BLOOD UREA NITROGEN 8 mg/dL (7-20); CALCIUM 9.3 mg/dL (8.4-10.2); CARBON DIOXIDE 24 mmol/L (22-30); CHLORIDE 104 mmol/L (98-107); CREATININE RESULT 0.87 mg/dL (0.52-1.25); GLUCOSE 180 mg/dL (75-110); POTASSIUM 3.8 mmol/L (3.6-5.0); SODIUM 139.2 mmol/L (137-145)
[2017-06-26] MEDS: IPRATROPIUM/ALBUTEROL 0.5-2.5 MG/3 ML AMPUL NEB SCH ×3 (07:49→20:12)
[2017-06-26] MEDS ORDERED: FUROSEMIDE INJ/PF 40 MG/4 ML SDV IV ONE (09:00)
[2017-06-26] MEDS: METFORMIN HCL 500 MG TABLET PO SCH ×2 (09:07→17:01)
[2017-06-26] MEDS: TIMOLOL MALEATE 0.25% OPH SOLN 5 ML OU SCH ×2 (09:08→17:03)
[2017-06-26] MEDS: CHOLESTYRAMINE/ASPARTAME 4 GM PACKET PO SCH ×2 (09:08→23:00)
[2017-06-26] MEDS: HYDROCHLOROTHIAZIDE 25 MG TABLET PO SCH (09:08)
[2017-06-26] MEDS: INSULIN LISPRO 100 UNIT/ML 3 ML VIAL SUBCUT SCH ×3 (09:08→17:02)
[2017-06-26] MEDS: ASPIRIN 81 MG TABLET, CHEWABLE PO SCH (09:08)
[2017-06-26] MEDS: ENOXAPARIN SODIUM INJ 40 MG/0.4 ML DISP.SYRIN SUBCUT SCH (09:09)
--- NOTE | 2017-06-26 16:56 | PDOC PROGRESS REPORT ---
Subjective Progress Note for:: 06/26/17 Subjective:: Patient is feeling much better after the Lasix. Denied any shortness of the breath denied any chest pain Patient's currently on IV antibiotic and the patient's C. difficile is negative Patient's diarrhea is also getting better Patient still have a difficult challenge for physical therapy Physical Exam Vital Signs: Temp Pulse Resp BP Pulse Ox 98.1 F 76 18 104/50 L 98 06/26/17 16:00 06/26/17 16:00 06/26/17 16:00 06/26/17 16:00 06/26/17 16:00 Intake & Output 06/25/17 06/26/17 06/27/17 06:59 06:59 06:59 Intake Total 1100 920 Output Total 3 Balance 1100 917 Weight 120.4 kg 117.8 kg General appearance: PRESENT: no acute distress, well-developed, well-nourished Head exam: PRESENT: atraumatic, normocephalic Eye exam: PRESENT: conjunctiva pink, EOMI, PERRLA. ABSENT: scleral icterus Ear exam: PRESENT: normal external ear exam Mouth exam: PRESENT: moist, tongue midline Neck exam: PRESENT: full ROM. ABSENT: carotid bruit, JVD, lymphadenopathy, thyromegaly Respiratory exam: PRESENT: clear to auscultation caity Cardiovascular exam: PRESENT: RRR. ABSENT: diastolic murmur, rubs, systolic murmur Pulses: PRESENT: normal dorsalis pedis pul, +2 pedal pulses bilateral Vascular exam: PRESENT: normal capillary refill GI/Abdominal exam: PRESENT: normal bowel sounds, soft. ABSENT: distended, guarding, mass, organolmegaly, rebound, tenderness Rectal exam: PRESENT: deferred Extremities exam: PRESENT: left BKA Additional comments: The dressing is intact Neurological exam: PRESENT: alert, awake, oriented to person, oriented to place , oriented to time, oriented to situation, CN II-XII grossly intact. ABSENT: motor sensory deficit Psychiatric exam: PRESENT: appropriate affect, normal mood. ABSENT: homicidal ideation, suicidal ideation Skin exam: PRESENT: dry, intact, warm. ABSENT: cyanosis, rash Results Laboratory Results: 06/26/17 04:58 06/26/17 04:58 06/26/17 06/26/17 04:58 04:58 WBC 9.0 RBC 3.66 L Hgb 9.9 L Hct 29.7 L MCV 81 MCH 27.2 MCHC 33.4 RDW 15.1 H Plt Count 458 H Seg Neutrophils % 74.4 Lymphocytes % 15.2 Monocytes % 7.2 Eosinophils % 2.4 Basophils % 0.8 Absolute Neutrophils 6.6 Absolute Lymphocytes 1.4 Absolute Monocytes 0.6 Absolute Eosinophils 0.2 Absolute Basophils 0.1 Sodium 139.2 Potassium 3.8 Chloride 104 Carbon Dioxide 24 Anion Gap 11 BUN 8 Creatinine 0.87 Est GFR ( Amer) > 60 Est GFR (Non-Af Amer) > 60 Glucose 180 H Calcium 9.3 Impressions: Chest X-Ray 06/25/17 00:00 IMPRESSION: Fluid overload or congestive failure with pulmonary vascular prominence and mild alveolar and interstitial edema Assessment & Plan - Diagnosis (1) Diabetic foot ulcers Qualifiers: Diabetic foot ulcer location: heel Diabetes mellitus type: type 2 Laterality: right Non-pressure ulcer stage: unspecified non-pressure ulcer stage Qualified Code(s): E11.621 - Type 2 diabetes mellitus with foot ulcer; L97.509 - Non-pressure chronic ulcer of other part of unspecified foot with unspecified severity Is this a current diagnosis for this admission?: YesPlan: Status post surgery continues to IV antibiotic as per discussed with the general surgery suggest that if the patient's remained afebrile may be a switch to the p.o. antibiotic in the next 48 hours (2) Type 2 diabetes mellitus Qualifiers: Diabetes mellitus complication status: with other specified complication Diabetes mellitus shelter insulin use: unspecified shelter insulin use status Qualified Code(s): E11.69 - Type 2 diabetes mellitus with other specified complication; Z79.4 - residential (current) use of insulin Is this a current diagnosis for this admission?: YesPlan: Continue sliding scale and continues to current medications (3) Hypertension Qualifiers: Hypertension type: essential hypertension Qualified Code(s): I10 - Essential (primary) hypertension Is this a current diagnosis for this admission?: YesPlan: Continues current medications (4) Hyperlipidemia Qualifiers: Hyperlipidemia type: unspecified Qualified Code(s): E78.5 - Hyperlipidemia, unspecified Is this a current diagnosis for this admission?: Yes (5) Obesity Qualifiers: Obesity type: unspecified obesity type Is this a current diagnosis for this admission?: Yes (6) Chronic back pain Qualifiers: Back pain location: low back pain Is this a current diagnosis for this admission?: Yes (7) Peripheral vascular disease Is this a current diagnosis for this admission?: Yes (8) Ischemic neuropathy of left foot Is this a current diagnosis for this admission?: YesPlan: Status post left BKA (9) Leukocytosis Qualifiers: Leukocytosis type: unspecified Qualified Code(s): D72.829 - Elevated white blood cell count, unspecified Is this a current diagnosis for this admission?: Yes (10) Hyperkalemia Is this a current diagnosis for this admission?: Yes (11) Anemia Qualifiers: Anemia type: other cause Is this a current diagnosis for this admission?: YesPlan: Currently stable (12) Diarrhea Qualifiers: Diarrhea type: unspecified type Qualified Code(s): R19.7 - Diarrhea , unspecified Is this a current diagnosis for this admission?: Yes - Time Time Spent with patient: 15-24 minutes Medications reviewed and adjusted accordingly: Yes Anticipated discharge: SNF Within: Other - Inpatient Certification Medical Necessity: Need for IV Antibiotics Post Hospital Care: D/C Ekg/Ecg Technician Documentation - Plan Summary Plan Summary: Continues current medication
[2017-06-26] MEDS: INSULIN LISPRO 100 UNIT/ML 3 ML VIAL SUBCUT PRN ×2 (17:02→23:00)
[2017-06-26] MEDS: INSULIN GLARGINE,HUM.REC.ANLOG 300 UNIT/3 ML INSULN.PEN SUBCUT SCH (23:00)
[2017-06-26] MEDS: LATANOPROST 0.005% OPH SOLN 2.5 ML OU SCH (23:12)
[2017-06-27] MEDS: PIPERACILLIN SODIUM/TAZOBACTAM 3.375 GM in NORMAL SALINE 100 ML IV SCH ×2 (00:03→06:42)
[2017-06-27] MEDS: OXYCODONE-ACETAMINOPHEN 5-325 MG TABLET PO PRN ×2 (00:03→17:18)
[2017-06-27 05:20] LABS: ABSOLUTE BASOPHILS # (AUTO) 0.1 10^3/uL (0.0-0.2); ABSOLUTE EOSINOPHILS # (AUTO) 0.2 10^3/uL (0.0-0.6); ABSOLUTE LYMPHOCYTES (AUTO) 1.7 10^3/uL (0.5-4.7); ABSOLUTE MONOCYTES (AUTO) 0.7 10^3/uL (0.1-1.4); EOSINOPHILS % (AUTO) 2.5 % (0-6); HEMATOCRIT 29.6 % (36.0-47.0); HGB HCT DIFFERENCE 0.4; LYMPHOCYTES % (AUTO) 19.5 % (13-45); MEAN CORPUSCULAR HEMOGLOBIN 27.3 pg (27.0-33.4); MEAN CORPUSCULAR HGB CONC 33.7 g/dL (32.0-36.0); MEAN CORPUSCULAR VOLUME 81 fl (80-97); MONOCYTES % (AUTO) 8.1 % (3-13); RED BLOOD COUNT 3.66 10^6/uL (3.72-5.28); RED CELL DISTRIBUTION WIDTH 15.3 % (11.5-14.0); SEGMENTED NEUTROPHILS % (AUTO) 68.9 % (42-78); WHITE BLOOD COUNT 8.7 10^3/uL (4.0-10.5)
[2017-06-27 05:44] LABS: ANION GAP 11 (5-19); BLOOD UREA NITROGEN 13 mg/dL (7-20); CALCIUM 9.1 mg/dL (8.4-10.2); CARBON DIOXIDE 26 mmol/L (22-30); CHLORIDE 102 mmol/L (98-107); CREATININE RESULT 1.02 mg/dL (0.52-1.25); GLUCOSE 153 mg/dL (75-110); POTASSIUM 3.7 mmol/L (3.6-5.0); SODIUM 138.7 mmol/L (137-145)
[2017-06-27] MEDS: IPRATROPIUM/ALBUTEROL 0.5-2.5 MG/3 ML AMPUL NEB SCH ×3 (07:48→19:52)
--- NOTE | 2017-06-27 09:02 | PDOC PROGRESS REPORT ---
Subjective Progress Note for:: 06/27/17 Subjective:: Patient is currently doing fair denied any more loose stool. Patient's also complaining of mild wheezing but no chest pain. Patients denied any fever Patient still complaining of pain on the left BKA stump Physical Exam Vital Signs: Temp Pulse Resp BP Pulse Ox 98.7 F 70 18 114/75 98 06/27/17 00:51 06/27/17 07:50 06/27/17 07:50 06/27/17 00:51 06/27/17 07:50 Intake & Output 06/26/17 06/27/17 06/28/17 06:59 06:59 06:59 Intake Total 920 1220 Output Total 3 2 Balance 917 1218 Weight 117.8 kg 116 kg General appearance: PRESENT: no acute distress, well-developed, well-nourished Head exam: PRESENT: atraumatic, normocephalic Eye exam: PRESENT: conjunctiva pink, EOMI, PERRLA. ABSENT: scleral icterus Ear exam: PRESENT: normal external ear exam Mouth exam: PRESENT: moist, tongue midline Neck exam: PRESENT: full ROM. ABSENT: carotid bruit, JVD, lymphadenopathy, thyromegaly Respiratory exam: PRESENT: clear to auscultation caity Cardiovascular exam: PRESENT: RRR. ABSENT: diastolic murmur, rubs, systolic murmur Pulses: PRESENT: normal dorsalis pedis pul, +2 pedal pulses bilateral Vascular exam: PRESENT: normal capillary refill GI/Abdominal exam: PRESENT: normal bowel sounds, soft. ABSENT: distended, guarding, mass, organolmegaly, rebound, tenderness Rectal exam: PRESENT: deferred Extremities exam: PRESENT: left BKA Additional comments: Dressing is intact Neurological exam: PRESENT: alert, awake, oriented to person, oriented to place , oriented to time, oriented to situation, CN II-XII grossly intact. ABSENT: motor sensory deficit Psychiatric exam: PRESENT: appropriate affect, normal mood. ABSENT: homicidal ideation, suicidal ideation Skin exam: PRESENT: dry, intact, warm. ABSENT: cyanosis, rash Results Laboratory Results: 06/27/17 04:30 06/27/17 04:30 06/27/17 06/27/17 04:30 04:30 WBC 8.7 RBC 3.66 L Hgb 10.0 L Hct 29.6 L MCV 81 MCH 27.3 MCHC 33.7 RDW 15.3 H Plt Count 451 H Seg Neutrophils % 68.9 Lymphocytes % 19.5 Monocytes % 8.1 Eosinophils % 2.5 Basophils % 1.0 Absolute Neutrophils 6.0 Absolute Lymphocytes 1.7 Absolute Monocytes 0.7 Absolute Eosinophils 0.2 Absolute Basophils 0.1 Sodium 138.7 Potassium 3.7 Chloride 102 Carbon Dioxide 26 Anion Gap 11 BUN 13 Creatinine 1.02 Est GFR ( Amer) > 60 Est GFR (Non-Af Amer) 53 L Glucose 153 H Calcium 9.1 Assessment & Plan - Diagnosis (1) Diabetic foot ulcers Qualifiers: Diabetic foot ulcer location: heel Diabetes mellitus type: type 2 Laterality: right Non-pressure ulcer stage: unspecified non-pressure ulcer stage Qualified Code(s): E11.621 - Type 2 diabetes mellitus with foot ulcer; L97.509 - Non-pressure chronic ulcer of other part of unspecified foot with unspecified severity Is this a current diagnosis for this admission?: YesPlan: Status post surgery continues to IV antibiotic as per discussed with the general surgery suggest that if the patient's remained afebrile may be a switch to the p.o. antibiotic in the next 48 hours (2) Type 2 diabetes mellitus Qualifiers: Diabetes mellitus complication status: with other specified complication Diabetes mellitus care home insulin use: unspecified ocean transportation intermediary insulin use status Qualified Code(s): E11.69 - Type 2 diabetes mellitus with other specified complication; Z79.4 - group home (current) use of insulin Is this a current diagnosis for this admission?: YesPlan: Continue sliding scale and continues to current medications (3) Hypertension Qualifiers: Hypertension type: essential hypertension Qualified Code(s): I10 - Essential (primary) hypertension Is this a current diagnosis for this admission?: YesPlan: Continues current medications (4) Hyperlipidemia Qualifiers: Hyperlipidemia type: unspecified Qualified Code(s): E78.5 - Hyperlipidemia, unspecified Is this a current diagnosis for this admission?: Yes (5) Obesity Qualifiers: Obesity type: unspecified obesity type Is this a current diagnosis for this admission?: YesPlan: Patient usually walk with the walker but since the left foot wound patient unable to walk much (6) Chronic back pain Qualifiers: Back pain location: low back pain Is this a current diagnosis for this admission?: YesPlan: Patients follow with the Neurosurgeon and is all conservative management (7) Peripheral vascular disease Is this a current diagnosis for this admission?: Yes (8) Ischemic neuropathy of left foot Is this a current diagnosis for this admission?: YesPlan: Status post left BKA (9) Leukocytosis Qualifiers: Leukocytosis type: unspecified Qualified Code(s): D72.829 - Elevated white blood cell count, unspecified Is this a current diagnosis for this admission?: YesPlan: All resolved (10) Hyperkalemia Is this a current diagnosis for this admission?: Yes (11) Anemia Qualifiers: Anemia type: other cause Is this a current diagnosis for this admission?: Yes (12) Diarrhea Qualifiers: Diarrhea type: unspecified type Qualified Code(s): R19.7 - Diarrhea , unspecified Is this a current diagnosis for this admission?: YesPlan: All resolved. The question nowstop - Time Time Spent with patient: 15-24 minutes Medications reviewed and adjusted accordingly: Yes Anticipated discharge: SNF Within: within 24 hours - Inpatient Certification Medical Necessity: Need Close Monitoring Due to Risk of Patient Decompensation Post Hospital Care: D/C Airline Station Agent Documentation - Plan Summary Plan Summary: We will repeat the chest x-ray stop the IV antibiotic start the p.o. Cipro and patient's remained stable in next 24 hrs. and if is okay with the surgery discharged to the rehab
[2017-06-27] MEDS: ENOXAPARIN SODIUM INJ 40 MG/0.4 ML DISP.SYRIN SUBCUT SCH (09:08)
[2017-06-27] MEDS: HYDROCHLOROTHIAZIDE 25 MG TABLET PO SCH (09:10)
[2017-06-27] MEDS: ASPIRIN 81 MG TABLET, CHEWABLE PO SCH (09:10)
[2017-06-27] MEDS: TIMOLOL MALEATE 0.25% OPH SOLN 5 ML OU SCH ×2 (09:10→17:18)
[2017-06-27] MEDS: INSULIN LISPRO 100 UNIT/ML 3 ML VIAL SUBCUT SCH ×3 (09:10→17:18)
[2017-06-27] MEDS: METFORMIN HCL 500 MG TABLET PO SCH ×2 (09:10→17:18)
[2017-06-27] MEDS: FUROSEMIDE 40 MG TABLET PO SCH (09:10)
--- NOTE | 2017-06-27 09:38 | RADIOLOGY REPORT (SQ) ---
EXAM DESCRIPTION: CHEST SINGLE VIEW COMPLETED DATE/TIME: 06/27/2017 8:08 am REASON FOR STUDY: sob COMPARISON: 06/25/2017, 08/30/2016 EXAM PARAMETERS: NUMBER OF VIEWS: One view. TECHNIQUE: Single frontal radiographic view of the chest acquired. RADIATION DOSE: NA LIMITATIONS: None. FINDINGS: LUNGS AND PLEURA: No opacities, masses or pneumothorax. No pleural effusion. MEDIASTINUM AND HILAR STRUCTURES: No masses. Contour normal. HEART AND VASCULAR STRUCTURES: Heart normal in size. Normal vasculature. BONES: No acute findings. HARDWARE: None in the chest. OTHER: No other significant finding. IMPRESSION: NO ACUTE RADIOGRAPHIC FINDING IN THE CHEST. TECHNICAL DOCUMENTATION: JOB ID: [id number]
[2017-06-27] MEDS: CIPROFLOXACIN HCL 500 MG TABLET PO SCH ×2 (09:54→22:48)
--- NOTE | 2017-06-27 09:59 | PDOC PROGRESS REPORT ---
Subjective Progress Note for:: 06/27/17 Subjective:: No complaints. Physical Exam Vital Signs: Temp Pulse Resp BP Pulse Ox 98.7 F 70 18 114/75 98 06/27/17 00:51 06/27/17 07:50 06/27/17 07:50 06/27/17 00:51 06/27/17 07:50 Intake & Output 06/26/17 06/27/17 06/28/17 06:59 06:59 06:59 Intake Total 920 1220 Output Total 3 2 Balance 917 1218 Weight 117.8 kg 116 kg Extremities exam: PRESENT: other - Stump inferior flap with blanching erythema and discoloration. No drainage wound is intact. No fluctuance. Results Laboratory Results: 06/27/17 04:30 06/27/17 04:30 06/27/17 06/27/17 04:30 04:30 WBC 8.7 RBC 3.66 L Hgb 10.0 L Hct 29.6 L MCV 81 MCH 27.3 MCHC 33.7 RDW 15.3 H Plt Count 451 H Seg Neutrophils % 68.9 Lymphocytes % 19.5 Monocytes % 8.1 Eosinophils % 2.5 Basophils % 1.0 Absolute Neutrophils 6.0 Absolute Lymphocytes 1.7 Absolute Monocytes 0.7 Absolute Eosinophils 0.2 Absolute Basophils 0.1 Sodium 138.7 Potassium 3.7 Chloride 102 Carbon Dioxide 26 Anion Gap 11 BUN 13 Creatinine 1.02 Est GFR ( Amer) > 60 Est GFR (Non-Af Amer) 53 L Glucose 153 H Calcium 9.1 Impressions: Chest X-Ray 06/27/17 07:00 IMPRESSION: NO ACUTE RADIOGRAPHIC FINDING IN THE CHEST. Assessment & Plan - Diagnosis (1) Peripheral vascular disease Is this a current diagnosis for this admission?: YesPlan: Status post below the knee amputation. Inferior flap appears ischemic but still viable. Continue antibiotics and observation.
[2017-06-27] MEDS: INSULIN GLARGINE,HUM.REC.ANLOG 300 UNIT/3 ML INSULN.PEN SUBCUT SCH (22:48)
[2017-06-27] MEDS: LATANOPROST 0.005% OPH SOLN 2.5 ML OU SCH (22:48)
[2017-06-28 06:15] LABS: ABSOLUTE BASOPHILS # (AUTO) 0.1 10^3/uL (0.0-0.2); ABSOLUTE EOSINOPHILS # (AUTO) 0.2 10^3/uL (0.0-0.6); ABSOLUTE LYMPHOCYTES (AUTO) 1.8 10^3/uL (0.5-4.7); ABSOLUTE MONOCYTES (AUTO) 0.7 10^3/uL (0.1-1.4); BASOPHILS % (AUTO) 0.6 % (0-2); EOSINOPHILS % (AUTO) 2.6 % (0-6); HEMATOCRIT 30.8 % (36.0-47.0); HEMOGLOBIN 10.4 g/dL (12.0-15.5); HGB HCT DIFFERENCE 0.4; LYMPHOCYTES % (AUTO) 20.7 % (13-45); MEAN CORPUSCULAR HEMOGLOBIN 27.3 pg (27.0-33.4); MEAN CORPUSCULAR HGB CONC 33.7 g/dL (32.0-36.0); MEAN CORPUSCULAR VOLUME 81 fl (80-97); MONOCYTES % (AUTO) 8.3 % (3-13); RED CELL DISTRIBUTION WIDTH 15.7 % (11.5-14.0); SEGMENTED NEUTROPHILS % (AUTO) 67.8 % (42-78); WHITE BLOOD COUNT 8.9 10^3/uL (4.0-10.5)
[2017-06-28 06:33] LABS: ANION GAP 9 (5-19); BLOOD UREA NITROGEN 14 mg/dL (7-20); CALCIUM 9.2 mg/dL (8.4-10.2); CARBON DIOXIDE 27 mmol/L (22-30); CHLORIDE 102 mmol/L (98-107); GLUCOSE 119 mg/dL (75-110); POTASSIUM 3.9 mmol/L (3.6-5.0); SODIUM 138.4 mmol/L (137-145)
[2017-06-28] MEDS: IPRATROPIUM/ALBUTEROL 0.5-2.5 MG/3 ML AMPUL NEB SCH ×2 (08:10→14:03)
[2017-06-28] MEDS: OXYCODONE-ACETAMINOPHEN 5-325 MG TABLET PO PRN (08:57)
[2017-06-28] MEDS: METFORMIN HCL 500 MG TABLET PO SCH ×2 (08:57→17:10)
[2017-06-28] MEDS: INSULIN LISPRO 100 UNIT/ML 3 ML VIAL SUBCUT SCH ×3 (08:57→17:12)
--- NOTE | 2017-06-28 09:17 | PDOC TRANSFER SUMMARY ---
General - Admit/Disc Date/PCP Admission Date/Primary Care Provider: 06/17/17 19:27 LEATHA DUNN MD Discharge Date: 06/28/17 - Discharge Diagnosis (1) Diabetic foot ulcers Is this a current diagnosis for this admission?: YesSummary: Status post surgery on the left foot and also use the right foot heel protected (2) Type 2 diabetes mellitus Is this a current diagnosis for this admission?: YesSummary: Continues to insulin sliding scale check the blood sugar before meals and at bedtime (3) Hypertension Is this a current diagnosis for this admission?: YesSummary: Currently stable continues to current medications (4) Hyperlipidemia Is this a current diagnosis for this admission?: YesSummary: Continues to statin (5) Obesity Is this a current diagnosis for this admission?: YesSummary: Fall precautions (6) Chronic back pain Is this a current diagnosis for this admission?: YesSummary: Patient see outpatients neurosurgery for that (7) Peripheral vascular disease Is this a current diagnosis for this admission?: YesSummary: Reasons follow with the surgery (8) Ischemic neuropathy of left foot Is this a current diagnosis for this admission?: YesSummary: Status post left BKA (9) Leukocytosis Is this a current diagnosis for this admission?: YesSummary: Currently all resolved (10) Hyperkalemia Is this a current diagnosis for this admission?: YesSummary: Currently all resolved (11) Anemia Is this a current diagnosis for this admission?: YesSummary: Status post 1 unit of blood (12) Diarrhea Is this a current diagnosis for this admission?: YesSummary: All resolved - Additional Information Resuscitation Status: Full Code Discharge Diet: Diabetic Discharge Activity: Activity As Tolerated Home Medications: Aspirin [Aspirin 81 mg Chewable Tablet] 81 mg PO DAILY 06/17/17 Hydrochlorothiazide 25 mg PO DAILY 06/17/17 Insulin Glargine,Hum.rec.anlog [Lantus Insulin 100 Unit/1 ml 10 ml] 40 unit SUBCUT DAILY 06/17/17 Insulin Lispro [Humalog] 15 unit SQ TID 06/17/17 Latanoprost 1 drop OU QHS 06/17/17 Losartan Potassium 50 mg PO DAILY 06/17/17 Metformin HCl [Glucophage] 1,000 mg PO BID 06/17/17 Simvastatin [Zocor 20 mg Tablet] 20 mg PO DAILY 06/17/17 Timolol Maleate [Timoptic 0.25% Oph Soln 5 ml] 2 drop OU BID 06/17/17 Acetaminophen [Tylenol 325 mg Tablet] 650 mg PO Q4HP PRN #0 tablet 06/28/17 Ciprofloxacin HCl [Cipro 500 mg Tablet] 500 mg PO Q12 #14 tablet 06/28/17 Enoxaparin Sodium [Lovenox Inj 40 mg/0.4 ml Disp.syrin] 40 mg SUBCUT DAILY #10 disp.syrin 06/28/17 Ipratropium/Albuterol Sulfate [Duoneb 3 ml Ampul] 3 ml [facility] [id number] #0 vial.neb 06/28/17 Oxycodone HCl/Acetaminophen [Percocet 5-325 mg Tablet] 1 tab PO Q6HP PRN #30 tablet 06/28/17 History of Present Illness Admission Date/PCP: 06/17/17 19:27 LEATHA DUNN MD History of Present Illness: MALGORZATA SOSA is a 77 year old female patients admitted from the emergency department through the wound care department for the further evaluation of left foot septic wound from the diabetic ischemia with the recent evaluations done by the vascular surgery at the [place]. The patient was seen at the advanced wound center today by Dr. Real who is been following her for some time. The patient has a known left posterior lateral foot wound related to diabetic infection and ischemic neuropathy. Patient is a 5 day status post arteriogram by Dr. Andrea in [place]. Patient had recent vascular evaluation and is felt to have a non-revascularizable left foot therefore amputation is planned for tomorrow. Patient denied any prior history of myocardial infarction, congestive heart failure, angina. Her physical activity is however limited. Hospital Course Hospital Course: This is a 77-year-old female present in the emergency departments for the wound care clinic because of the infected left foot diabetic woundAnd the patient seen by the surgery and the most likely a ganglion and suggest patients due to left BKA. Patient underwent for the left BKA and doing well Patient seen by the cardiology and echocardiogram was done before the surgery and was all stable Patient's diabetes under well control Patient's other medical problem was all stable Patient's otherwise still have a mobility issues with the morbid obesity and I think patients get a benefit to go to the rehab Patient was continues to Lovenox for DVT prophylaxis for the next 10 days and to further evaluate depends and the patient's mobility at the rehab center Patients need a Xeroform dressing change once a day at the left BKA stump and also in the right heel use the protector for the wound over there Patient also see Dr. Pearson the general surgery in his office next week Patient's put on the sliding scale with [facility] protocol Check of blood sugar before meals and at bedtime Watch for any hypoglycemia in the fall precautions Use as needed nebulizer Physical Exam Vital Signs: Temp Pulse Resp BP Pulse Ox 98.3 F 74 16 121/59 L 93 06/28/17 08:06 06/28/17 08:10 06/28/17 08:10 06/28/17 08:06 06/28/17 08:10 Intake & Output 06/27/17 06/28/17 06/29/17 06:59 06:59 06:59 Intake Total 1220 1100 Output Total 2 0 Balance 1218 1100 Weight 116 kg 116 kg General appearance: PRESENT: no acute distress, well-developed, well-nourished Head exam: PRESENT: atraumatic, normocephalic Eye exam: PRESENT: conjunctiva pink, EOMI, PERRLA. ABSENT: scleral icterus Ear exam: PRESENT: normal external ear exam Mouth exam: PRESENT: moist, tongue midline Neck exam: ABSENT: carotid bruit, JVD, lymphadenopathy, thyromegaly Respiratory exam: PRESENT: clear to auscultation caity. ABSENT: rales, rhonchi, wheezes Cardiovascular exam: PRESENT: RRR. ABSENT: diastolic murmur, rubs, systolic murmur Pulses: PRESENT: normal dorsalis pedis pul Vascular exam: PRESENT: normal capillary refill GI/Abdominal exam: PRESENT: normal bowel sounds, soft. ABSENT: distended, guarding, mass, organolmegaly, rebound, tenderness Rectal exam: PRESENT: deferred Extremities exam: PRESENT: other Musculoskeletal exam: PRESENT: other Neurological exam: PRESENT: alert, awake, oriented to person, oriented to place , oriented to time, oriented to situation. ABSENT: motor sensory deficit Psychiatric exam: PRESENT: appropriate affect, normal mood. ABSENT: homicidal ideation, suicidal ideation Skin exam: PRESENT: dry, intact, warm. ABSENT: cyanosis, rash Results Laboratory Results: 06/28/17 05:32 06/28/17 05:32 06/28/17 06/28/17 05:32 05:32 WBC 8.9 RBC 3.80 Hgb 10.4 L Hct 30.8 L MCV 81 MCH 27.3 MCHC 33.7 RDW 15.7 H Plt Count 425 Seg Neutrophils % 67.8 Lymphocytes % 20.7 Monocytes % 8.3 Eosinophils % 2.6 Basophils % 0.6 Absolute Neutrophils 6.0 Absolute Lymphocytes 1.8 Absolute Monocytes 0.7 Absolute Eosinophils 0.2 Absolute Basophils 0.1 Sodium 138.4 Potassium 3.9 Chloride 102 Carbon Dioxide 27 Anion Gap 9 BUN 14 Creatinine 0.90 Est GFR ( Amer) > 60 Est GFR (Non-Af Amer) > 60 Glucose 119 H Calcium 9.2 Impressions: Chest X-Ray 06/27/17 07:00 IMPRESSION: NO ACUTE RADIOGRAPHIC FINDING IN THE CHEST. Transfer Plan - Time Spent with Patient Time spent with patient: Greater than 30 Minutes Plan Time Spent: Greater than 30 Minutes - Check the patient's CBC and Chem-7 in 1 week Uses Xeroform dressings on the left BKA change once a day Continues use the Lovenox for at least next 10 days and reevaluate after the patient's mobility Follow with the Dr. Pearson Discussed with the patient and the family about the patient's current conditions and all follow-up plan
[2017-06-28] MEDS: ENOXAPARIN SODIUM INJ 40 MG/0.4 ML DISP.SYRIN SUBCUT SCH (10:07)
[2017-06-28] MEDS: HYDROCHLOROTHIAZIDE 25 MG TABLET PO SCH (10:07)
[2017-06-28] MEDS: CIPROFLOXACIN HCL 500 MG TABLET PO SCH (10:07)
[2017-06-28] MEDS: TIMOLOL MALEATE 0.25% OPH SOLN 5 ML OU SCH ×2 (10:07→17:10)
[2017-06-28] MEDS: ASPIRIN 81 MG TABLET, CHEWABLE PO SCH (10:07)
[2017-06-28] MEDS: FUROSEMIDE 40 MG TABLET PO SCH (10:07)
[2017-06-28 16:28] VITALS: BP 90/65
--- NOTE | 2017-06-28 18:02 | PROGRESS NOTE E ---
Progress Note NAME: MALGORZATA SOSA : 1940 AGE: 77Y DATE: 06/28/2017 ROOM: 404 SUBJECTIVE: This is about the tenth postop day left [id number] amputation. OBJECTIVE: The amputation stump remained no change. It is still warm and skin slightly erythematous and a few dark areas. Incision appears to be clean and dry at this time. The stump is warm. The right heel was inspected and appears to have a dry ulcer. It is slightly tender but no evidence of inflammation. PLAN: The patient may be discharged today to a skilled care facility as discussed with Dr. Schmitt. Continue the same regimen that she has in the hospital with daily changing of dressing of the left BKA stump and continue preventing pressure on the right heel with a special boot or on top of a pillow to prevent pressure on the heel on the bed. I would recommend for her to be followed up by Dr. Pearson in the Surgical [facility] next week just to make sure there is no worsening of the below-knee amputation stump. DICTATING PHYSICIAN: THU BARNEY M.D. [id number] PHY#: [id number] ID: [id number] JOB#: [id number] ACCT: [id number] cc: >
== END 2017-06-28 18:05 | DRG 240 ==
LOC: ER 14:54 → EH 19:27 → 4N 22:02
PROVIDERS: ADMIT Family Medicine; ATTEND Family Medicine
PROC: 3E0F73Z Introduction of Anti-inflammatory into Respiratory Tract, Via Natural or Artificial Opening (ICD-10-PCS; 2017-06-17)
PROC: 0Y6J0Z3 Detachment at Left Lower Leg, Low, Open Approach (ICD-10-PCS; principal; 2017-06-19 14:15)
PROC: 30233N1 Transfusion of Nonautologous Red Blood Cells into Peripheral Vein, Percutaneous Approach (ICD-10-PCS; 2017-06-21)
DX: E11.52 Type 2 diabetes mellitus with diabetic peripheral angiopathy with gangrene (principal); L97.419 Non-pressure chronic ulcer of right heel and midfoot with unspecified severity; Z68.42 Body mass index [BMI] 45.0-49.9, adult; E66.2 Morbid (severe) obesity with alveolar hypoventilation; D62 Acute posthemorrhagic anemia; I47.0 Re-entry ventricular arrhythmia; E11.621 Type 2 diabetes mellitus with foot ulcer; L97.529 Non-pressure chronic ulcer of other part of left foot with unspecified severity; E78.5 Hyperlipidemia, unspecified; G89.29 Other chronic pain; M54.5 Low back pain; G57.82 Other specified mononeuropathies of left lower limb; E87.5 Hyperkalemia; R19.7 Diarrhea, unspecified; K21.9 Gastro-esophageal reflux disease without esophagitis; M19.90 Unspecified osteoarthritis, unspecified site; I27.2 Other secondary pulmonary hypertension; I11.9 Hypertensive heart disease without heart failure; I50.9 Heart failure, unspecified; D72.829 Elevated white blood cell count, unspecified; B96.4 Proteus (mirabilis) (morganii) as the cause of diseases classified elsewhere; B96.5 Pseudomonas (aeruginosa) (mallei) (pseudomallei) as the cause of diseases classified elsewhere; Z79.899 Other long term (current) drug therapy; Z79.4 Long term (current) use of insulin; Z90.49 Acquired absence of other specified parts of digestive tract; Z82.61 Family history of arthritis; Z82.49 Family history of ischemic heart disease and other diseases of the circulatory system; Z83.3 Family history of diabetes mellitus; I25.2 Old myocardial infarction
CPT/HCPCS: 01482; 36415; 36430; 71010; 80048; 80053; 81001; 82962; 83735; 84132; 85025; 85610; 85730; 86850; 86900; 86901; 86920; 87040; 87070; 87077; 87086; 87186; 87205; 87493; 88307; 93005; 93010; 93306; 94640; 99285; C9290; G8978-GP; G8979-GP; G8987-GO; G8988-GO; J1170; J1335; J1650; J1815; J1885; J1940; J2250; J2370; J2405; J2543; J2704; J3010; J3480; J3490; J7030; J7620; P9016

== ENCOUNTER 2017-10-07 11:20 | Inpatient (IN) | payer MEDICARE, BC ==
[2017-10-04 11:16] LABS: HEMATOCRIT 33.5 % (36.0-47.0); HEMOGLOBIN 10.8 g/dL (12.0-15.5); HGB HCT DIFFERENCE -1.1; MEAN CORPUSCULAR HEMOGLOBIN 27.3 pg (27.0-33.4); MEAN CORPUSCULAR HGB CONC 32.4 g/dL (32.0-36.0); MEAN CORPUSCULAR VOLUME 84 fl (80-97); RED BLOOD COUNT 3.96 10^6/uL (3.72-5.28); RED CELL DISTRIBUTION WIDTH 14.4 % (11.5-14.0); WHITE BLOOD COUNT 7.2 10^3/uL (4.0-10.5)
[2017-10-04 11:21] LABS: ANION GAP 13 (5-19); BLOOD UREA NITROGEN 20 mg/dL (7-20); CALCIUM 10.4 mg/dL (8.4-10.2); CARBON DIOXIDE 19 mmol/L (22-30); CHLORIDE 108 mmol/L (98-107); CREATININE RESULT 1.16 mg/dL (0.52-1.25); GLUCOSE 94 mg/dL (75-110); POTASSIUM 5.2 mmol/L (3.6-5.0); SODIUM 140.3 mmol/L (137-145)
--- NOTE | 2017-10-04 22:46 | EKG REPORT ---
SEVERITY:- ABNORMAL ECG - SINUS RHYTHM VENTRICULAR PREMATURE COMPLEX LEFT ANTERIOR FASCICULAR BLOCK : Confirmed by: Sagar Chaidez 04-Oct-2017 22:44:48
[~2017-10-07 11:20] MED LIST: BUPIVACAINE HCL 0.25 % INJ/PF (2.5 MG/1 ML) 30 ML VIAL ONE; LACTATED RINGERS 1000 ML IV PRN; LIDOCAINE 0.5% INJ-PF (5 MG/ML) 50 ML SDV ONE; LIDOCAINE 0.5% INJ-PF (5 MG/ML) 50 ML SDV SUBCUT PRN; ONDANSETRON HCL INJ/PF 4 MG/2 ML SDV ONE
[2017-10-07] MEDS ORDERED: SILVER SULFADIAZINE 1% CREAM 25 GM ONE (11:25)
[2017-10-07] MEDS ORDERED: COLLAGENASE CLOSTRIDIUM HIST. OINT 30 GM ONE (11:25)
[2017-10-07] MEDS ORDERED: BACITRACIN INJ 50,000 UNIT VIAL ONE (11:25)
[2017-10-07 12:17] LABS: PARTIAL THROMBOPLASTIN TIME 29.5 SEC (23.5-35.8)
[2017-10-07 12:28] LABS: POTASSIUM 4.5 mmol/L (3.6-5.0)
[2017-10-07] MEDS: DEXTROSE 50%-WATER 25 GM/50 ML DISP.SYRIN IV ONE ×2 (13:05→14:45)
[2017-10-07] MEDS ORDERED: KETAMINE HCL INJ 500 MG/10 ML VIAL ONE (14:09)
[2017-10-07] MEDS ORDERED: MIDAZOLAM 2 MG/2 ML INJ ONE (14:10)
[2017-10-07] MEDS ORDERED: FENTANYL CITRATE INJ/PF 100 MCG/2 ML AMPUL ONE (14:10)
[2017-10-07] MEDS ORDERED: PROPOFOL INJ 200 MG/20 ML VIAL IV ONE (14:10)
[2017-10-07] MEDS ORDERED: ONDANSETRON HCL INJ/PF 4 MG/2 ML SDV ONE (14:10)
[2017-10-07] MEDS ORDERED: ONDANSETRON HCL INJ/PF 4 MG/2 ML SDV IV PRN ×2 (16:00→17:38)
[2017-10-07] MEDS ORDERED: ACETAMINOPHEN 325 MG TABLET PO PRN ×2 (16:00→17:38)
[2017-10-07] MEDS ORDERED: DEXTROSE 5%-1/2 NORMAL SALINE 1,000 ML IV PRN ×2 (16:00→17:43)
[2017-10-07] MEDS ORDERED: IPRATROPIUM/ALBUTEROL 0.5-2.5 MG/3 ML AMPUL NEB PRN (17:38)
[2017-10-07] MEDS ORDERED: OXYCODONE-ACETAMINOPHEN 5-325 MG TABLET PO PRN (17:38)
[2017-10-07] MEDS ORDERED: ENOXAPARIN SODIUM INJ 30 MG/0.3 ML DISP.SYRIN SUBCUT ONE (18:00)
--- NOTE | 2017-10-07 18:35 | RADIOLOGY REPORT (SQ) ---
EXAM DESCRIPTION: CHEST SINGLE VIEW COMPLETED DATE/TIME: 10/07/2017 6:08 pm REASON FOR STUDY: pre op /copd COMPARISON: 06/27/2017 EXAM PARAMETERS: NUMBER OF VIEWS: One view. TECHNIQUE: Single frontal radiographic view of the chest acquired. RADIATION DOSE: NA LIMITATIONS: None. FINDINGS: LUNGS AND PLEURA: No opacities, masses or pneumothorax. No pleural effusion. MEDIASTINUM AND HILAR STRUCTURES: No masses. Contour normal. HEART AND VASCULAR STRUCTURES: Heart normal in size. Normal vasculature. BONES: No acute findings. HARDWARE: None in the chest. OTHER: No other significant finding. IMPRESSION: NO ACUTE RADIOGRAPHIC FINDING IN THE CHEST. TECHNICAL DOCUMENTATION: JOB ID: [id number] [employer]- All Rights Reserved
--- NOTE | 2017-10-07 20:38 | HISTORY AND PHYSICAL E ---
History and Physical NAME: MALGORZATA SOSA : 1940 AGE: 77Y ADMITTED: 10/07/2017 ROOM: 409 CHIEF COMPLAINT: Hypoglycemia. HISTORY OF PRESENT ILLNESS: This is a 77-year-old female with a significant history of type-2 diabetes mellitus insulin dependent with diabetic neuropathy with diabetic peripheral vascular disease with left BKA that was done in May with chronic back problem, hypertension, hyperlipidemia. Recently she stayed in a [facility] and discharged on Saturday. According to patient, she came to outpatient for left BKA wound and debridement procedures by Dr. Pablito Calderon in ambulatory surgery, and the patient's potassium was 5.2 and the repeated potassium was 4.5 and patient's blood sugar was running 45. The patient took the Lantus 40 units at night and did not eat and did not drink since last night. The patient was given D50 1 ampule and the patient was started on D5. The patient's current blood sugar when I saw it was 115, and according to Dr. Pablito Calderon and anesthesia, they postponed the surgery and just continues to monitor until the sugar gets better. When I saw the patient on the floor, the patient denied any chest pain, denied any shortness of breath, no abdominal pain, no urinary symptoms. The patient has a significant long history of multiple medical problems, was recently admitted to the hospital for multiple issues and underwent for the BKA. The patient at this point will hold the insulin, continue the D5 and obtain the blood work in the morning. The patient is currently hemodynamically stable and denied any other symptoms. PAST MEDICAL HISTORY: 1. History of type-2 diabetes mellitus with history of peripheral vascular disease and history of peripheral neuropathy. 2. History of hypertension. 3. History of hyperlipidemia. 4. History of glaucoma. 5. History of gastroesophageal reflux disease. 6. History of arthritis. PAST SURGICAL HISTORY: 1. Cholecystectomy. 2. Midline incision for *------*. SOCIAL HISTORY: Never smoked, no alcohol. She currently lives with her and just recently discharged from the [facility]. FAMILY HISTORY: Reviewed and not pertinent. CURRENT MEDICATIONS: 1. Aspirin 81 mg p.o. daily. 2. Lantus 40 units daily. 3. Humalog 15 units before each meal. 4. Losartan 50 mg p.o. daily. 5. Metformin 1000 mg p.o. daily. 6. Oxycodone 1 tablet q.6 h. p.r.n. 7. Atorvastatin 10 mg p.o. daily. 8. Timolol drops daily. ALLERGIES: No known drug allergies. REVIEW OF SYSTEMS: As above, all other pertinents are negative. PHYSICAL EXAMINATION: VITAL SIGNS: Blood pressure was 133/98, pulse 60, temperature 98.6, respirations 18, 02 saturation is 97% on room air. GENERAL: The patient is generally alert, awake, oriented x3, no acute distress. HEENT: Normocephalic. PERRLA. LUNGS: No wheezing, no rales, no rhonchi. HEART: S1 and S2 are present. ABDOMEN: Soft. Bowel sounds present. EXTREMITIES: On the right lower extremity, no edema. The patient's left extremity BKA and a small dressing is present, no draining. LABORATORY DATA: WBC is 7.2 on 10/04/17, hemoglobin 10.8, platelets 260,000. Chemistries: Sodium is 140, potassium 4.5, BUN 20, creatinine 1.16. The patient's calcium is 10.4 and recent glucose was 114. ASSESSMENT: 1. Hypoglycemia. 2. Type-2 diabetes mellitus with long-term insulin-dependent. 3. Peripheral vascular disease due to the above condition. 4. Diabetic neuropathy. 5. Hyperlipidemia. 6. Morbid obesity. 7. Chronic back problems. PLAN: Admit the patient to the telemetry bed. Get urine culture and blood culture to rule out any infections. Get a chest x-ray. Keep the patient on D5 until the patient's blood sugars are about 200 and we will discontinue it. Continue to hold the insulin at this point and continue to monitor the patient at this point. Discussed with Dr. Pablito Calderon and will re-evaluate the patient in the morning for possible surgery. The patient otherwise hemodynamically stable. Discussed with the regarding the patient's current condition. More than 35 minutes spent examining the patient and reviewing the records. DICTATING PHYSICIAN: LEATHA DUNN M.D. [id number] PHY#: [id number] ID: [id number] JOB#: [id number] ACCT: [id number] cc:LEATHA DUNN M.D. >
[2017-10-07] MEDS: HEPARIN SOD (PORCINE) 5,000 UNIT/ML 1 ML SYRINGE SUBCUT SCH (22:56)
[2017-10-07] MEDS: TIMOLOL MALEATE 0.25% OPH SOLN 5 ML OU SCH (22:57)
--- NOTE | 2017-10-07 23:19 | EKG REPORT ---
SEVERITY:- ABNORMAL ECG - SINUS RHYTHM VENTRICULAR BIGEMINY LEFT ANTERIOR FASCICULAR BLOCK : Confirmed by: Sagar Chaidez 07-Oct-2017 23:19:04
[2017-10-08 05:06] LABS: HEMATOCRIT 30.2 % (36.0-47.0); HEMOGLOBIN 9.9 g/dL (12.0-15.5); HGB HCT DIFFERENCE -0.5; MEAN CORPUSCULAR HEMOGLOBIN 27.4 pg (27.0-33.4); MEAN CORPUSCULAR HGB CONC 32.9 g/dL (32.0-36.0); MEAN CORPUSCULAR VOLUME 83 fl (80-97); RED BLOOD COUNT 3.63 10^6/uL (3.72-5.28); RED CELL DISTRIBUTION WIDTH 14.7 % (11.5-14.0); WHITE BLOOD COUNT 6.4 10^3/uL (4.0-10.5)
[2017-10-08 05:32] LABS: ANION GAP 11 (5-19); BLOOD UREA NITROGEN 19 mg/dL (7-20); CALCIUM 9.8 mg/dL (8.4-10.2); CARBON DIOXIDE 19 mmol/L (22-30); CHLORIDE 108 mmol/L (98-107); CREATININE RESULT 1.14 mg/dL (0.52-1.25); GLUCOSE 184 mg/dL (75-110); POTASSIUM 5.1 mmol/L (3.6-5.0); SODIUM 138.4 mmol/L (137-145)
[2017-10-08] MEDS: HEPARIN SOD (PORCINE) 5,000 UNIT/ML 1 ML SYRINGE SUBCUT SCH ×2 (05:48→14:48)
[2017-10-08] MEDS ORDERED: GLUCAGON,HUMAN RECOMB 1 MG INJ IM PRN (07:06)
[2017-10-08] MEDS ORDERED: DEXTROSE 50%-WATER 25 GM/50 ML DISP.SYRIN IV PRN ×2 (07:06)
[2017-10-08] MEDS ORDERED: INSULIN LISPRO 100 UNIT/ML 3 ML VIAL SUBCUT PRN (07:06)
[2017-10-08] MEDS ORDERED: DEXTROSE 40% GEL 15 GM TUBE PO PRN ×2 (07:06)
[2017-10-08] MEDS: DOCUSATE SODIUM 100 MG CAPSULE PO SCH ×3 (07:56→18:26)
[2017-10-08] MEDS ORDERED: 1/2 NORMAL SALINE 1,000 ML IV PRN (07:58)
[2017-10-08] MEDS ORDERED: ENOXAPARIN SODIUM INJ 30 MG/0.3 ML DISP.SYRIN SUBCUT SCH ×2 (08:00→10:00)
[2017-10-08] MEDS ORDERED: IPRATROPIUM/ALBUTEROL 0.5-2.5 MG/3 ML AMPUL NEB PRN (08:00)
[2017-10-08] MEDS ORDERED: ONDANSETRON HCL INJ/PF 4 MG/2 ML SDV IV PRN (08:00)
[2017-10-08] MEDS ORDERED: ACETAMINOPHEN 325 MG TABLET PO PRN (08:00)
--- NOTE | 2017-10-08 09:05 | PDOC PROGRESS REPORT ---
Subjective Progress Note for:: 10/08/17 Subjective:: Patient is currently doing much better patient's hypoglycemia is currently all resolved Patient's denied any chest pain denied any shortness of the breath Recent EKG and the chest x-rays all stable Physical Exam Vital Signs: Temp Pulse Resp BP Pulse Ox 98.1 F 62 18 95/45 L 97 10/08/17 07:28 10/08/17 08:50 10/08/17 08:50 10/08/17 07:28 10/08/17 08:50 Intake & Output 10/07/17 10/08/17 10/09/17 06:59 06:59 06:59 Intake Total 1160 Balance 1160 Weight 98.9 kg 98.9 kg General appearance: PRESENT: no acute distress, well-developed, well-nourished Head exam: PRESENT: atraumatic, normocephalic Eye exam: PRESENT: conjunctiva pink, EOMI, PERRLA. ABSENT: scleral icterus Ear exam: PRESENT: normal external ear exam Mouth exam: PRESENT: moist, tongue midline Neck exam: PRESENT: full ROM. ABSENT: carotid bruit, JVD, lymphadenopathy, thyromegaly Respiratory exam: PRESENT: clear to auscultation caity Cardiovascular exam: PRESENT: RRR. ABSENT: diastolic murmur, rubs, systolic murmur Pulses: PRESENT: normal dorsalis pedis pul, +2 pedal pulses bilateral Vascular exam: PRESENT: normal capillary refill GI/Abdominal exam: PRESENT: normal bowel sounds, soft. ABSENT: distended, guarding, mass, organolmegaly, rebound, tenderness Rectal exam: PRESENT: deferred Extremities exam: PRESENT: left BKA Neurological exam: PRESENT: alert, awake, oriented to person, oriented to place , oriented to time, oriented to situation, CN II-XII grossly intact. ABSENT: motor sensory deficit Psychiatric exam: PRESENT: appropriate affect, normal mood. ABSENT: homicidal ideation, suicidal ideation Skin exam: PRESENT: dry, intact, warm. ABSENT: cyanosis, rash Results Laboratory Results: 10/08/17 04:21 10/08/17 04:21 10/07/17 10/08/17 10/08/17 12:00 04:21 04:21 WBC 6.4 RBC 3.63 L Hgb 9.9 L Hct 30.2 L MCV 83 MCH 27.4 MCHC 32.9 RDW 14.7 H Plt Count 215 Sodium 138.4 Potassium 4.5 5.1 H Chloride 108 H Carbon Dioxide 19 L Anion Gap 11 BUN 19 Creatinine 1.14 Est GFR ( Amer) 56 L Est GFR (Non-Af Amer) 46 L Glucose 45 L 184 H Calcium 9.8 Impressions: Chest X-Ray 10/07/17 00:00 IMPRESSION: NO ACUTE RADIOGRAPHIC FINDING IN THE CHEST. Assessment & Plan - Diagnosis (1) Hypoglycemia Is this a current diagnosis for this admission?: Yes Plan: Currently all resolved (2) Anemia Qualifiers: Anemia type: unspecified type Qualified Code(s): D64.9 - Anemia, unspecified Is this a current diagnosis for this admission?: Yes Plan: Most likely a chronic conditions we will get the iron study (3) Hyperkalemia Is this a current diagnosis for this admission?: Yes Plan: Kayexalate 15 g 1 in the low potassium dietAnd hold the losartan (4) Hypertension Qualifiers: Hypertension type: essential hypertension Is this a current diagnosis for this admission?: Yes Plan: Continues to current medications except continues to hold the losartan (5) Peripheral vascular disease Is this a current diagnosis for this admission?: Yes (6) S/P BKA (below knee amputation) Qualifiers: Laterality: left Is this a current diagnosis for this admission?: Yes Plan: Vision is going for the debridement (7) Type 2 diabetes mellitus Qualifiers: Diabetes mellitus complication status: with unspecified complications Is this a current diagnosis for this admission?: Yes Plan: Start the patient on a sliding scales and start the patient on the Lantus 10 at night and slowly adjust the dose - Time Time Spent with patient: 15-24 minutes Medications reviewed and adjusted accordingly: Yes Anticipated discharge: Home Within: Other - Inpatient Certification Medical Necessity: Need Close Monitoring Due to Risk of Patient Decompensation Post Hospital Care: D/C Supervisor [employer] Documentation - Plan Summary Plan Summary: Continues to current medications continues a sliding scales
[2017-10-08 09:43] LABS: STAIN REACTIVITY CHECK ACCEPTABLE
[2017-10-08] MEDS ORDERED: INFLUENZA ADLT QUAD (36MOS+) 2017-18 VAC 0.5 ML SYR IM PRN (10:18)
[2017-10-08] MEDS ORDERED: LIDOCAINE 0.5% INJ-PF (5 MG/ML) 50 ML SDV ONE (12:22)
[2017-10-08] MEDS ORDERED: COLLAGENASE CLOSTRIDIUM HIST. OINT 30 GM ONE (12:22)
[2017-10-08] MEDS ORDERED: BUPIVACAINE HCL 0.25 % INJ/PF (2.5 MG/1 ML) 30 ML VIAL ONE (12:22)
[2017-10-08] MEDS ORDERED: SILVER SULFADIAZINE 1% CREAM 25 GM ONE (12:22)
[2017-10-08] MEDS ORDERED: BACITRACIN INJ 50,000 UNIT VIAL ONE (12:22)
[2017-10-08] MEDS: TIMOLOL MALEATE 0.25% OPH SOLN 5 ML OU SCH (12:23)
[2017-10-08] MEDS ORDERED: PROPOFOL INJ 200 MG/20 ML VIAL IV ONE ×2 (13:03→14:13)
[2017-10-08] MEDS ORDERED: FENTANYL CITRATE INJ/PF 100 MCG/2 ML AMPUL ONE ×2 (13:03→14:12)
[2017-10-08] MEDS ORDERED: MIDAZOLAM 2 MG/2 ML INJ ONE ×3 (13:03→14:13)
[2017-10-08] MEDS ORDERED: HYDROMORPHONE HCL INJ/PF 2 MG/ML AMPULE ONE (13:04)
[2017-10-08] MEDS ORDERED: DIPHENHYDRAMINE HCL 50 MG/ML VIAL IV PRN (15:01)
[2017-10-08] MEDS ORDERED: FENTANYL CITRATE INJ/PF 100 MCG/2 ML AMPUL IV PRN ×2 (15:01)
--- NOTE | 2017-10-08 15:13 | Operative Report ---
Operative Report DATE OF SURGERY: 10/08/17 PREOPERATIVE DIAGNOSIS: 1. Necrotic right heel and left below-knee amputation stump. 2. Diabetes mellitus type 2. #3 anemia. 4. Coronary artery disease. POSTOPERATIVE DIAGNOSIS: 1. Necrotic right heel and left below-knee amputation stump. Post debridement. 2. Diabetes mellitus type 2. #3 anemia. 4. Coronary artery disease. As OPERATION: Sharp, surgical, excisional debridement of necrotic subcutaneous tissues and tendon from the right heel and left below knee amputation site. SURGEON: SOLIS TATE NARROW GAUGE OPERATOR: None. ANESTHESIA: LMAC TISSUE REMOVED OR ALTERED: Necrotic subcutaneous tissue, tendon from the right heel and left below-knee amputation site. COMPLICATIONS: None ESTIMATED BLOOD LOSS: 5 mL. INTRAOPERATIVE FINDINGS: Of a right heel side of necrosis with an area of necrosis about 3 x 4 cm. Total area of the wound about 5 x 6 cm by about 2 cm deep. Excessive granulation tissue in addition to the above area of necrosis. In the left below-knee amputation site and opening about 0.5 cm. With necrotic tendon. Beneath it. The necrotic tendon was excised. PROCEDURE: PROCEDURE: The right foot and left BKA stump were prepared with [Betadine] and draped out with sterile linen. After the"universal time-out", in which it was confirmed that the patient [did receive antibiotic], the procedure commenced. The patient was appropriately anesthetized. The wound was probed. The wound was debrided of non viable tissue using scissors, curette with removal of loose debris, as well. The wounds was irrigated with [Peroxide] .The wounds were now irrigated with saline and [ Surgicel] placed within it, dressed with [Kerlix] and the procedure concluded.
[2017-10-08] MEDS: OXYCODONE-ACETAMINOPHEN 5-325 MG TABLET PO PRN (18:59)
[2017-10-08] MEDS ORDERED: LATANOPROST 0.005% OPH SOLN 2.5 ML OU SCH (22:00)
[2017-10-08] MEDS ORDERED: ATORVASTATIN CALCIUM 10 MG TABLET PO SCH (22:00)
[2017-10-08] MEDS ORDERED: INSULIN GLARGINE,HUM.REC.ANLOG 300 UNIT/3 ML INSULN.PEN SUBCUT SCH (22:00)
[2017-10-09] MEDS: TIMOLOL MALEATE 0.25% OPH SOLN 5 ML OU SCH ×2 (00:07→09:53)
[2017-10-09] MEDS: HEPARIN SOD (PORCINE) 5,000 UNIT/ML 1 ML SYRINGE SUBCUT SCH ×2 (00:09→07:00)
[2017-10-09] MEDS: OXYCODONE-ACETAMINOPHEN 5-325 MG TABLET PO PRN (04:19)
[2017-10-09 05:09] LABS: ABSOLUTE BASOPHILS # (AUTO) 0.1 10^3/uL (0.0-0.2); ABSOLUTE EOSINOPHILS # (AUTO) 0.4 10^3/uL (0.0-0.6); ABSOLUTE LYMPHOCYTES (AUTO) 2.4 10^3/uL (0.5-4.7); ABSOLUTE MONOCYTES (AUTO) 0.5 10^3/uL (0.1-1.4); BASOPHILS % (AUTO) 1.1 % (0-2); EOSINOPHILS % (AUTO) 6.7 % (0-6); HEMATOCRIT 27.8 % (36.0-47.0); HEMOGLOBIN 9.2 g/dL (12.0-15.5); HGB HCT DIFFERENCE -0.2; LYMPHOCYTES % (AUTO) 36.9 % (13-45); MEAN CORPUSCULAR HEMOGLOBIN 27.4 pg (27.0-33.4); MEAN CORPUSCULAR HGB CONC 32.9 g/dL (32.0-36.0); MEAN CORPUSCULAR VOLUME 83 fl (80-97); MONOCYTES % (AUTO) 8.1 % (3-13); RED BLOOD COUNT 3.34 10^6/uL (3.72-5.28); RED CELL DISTRIBUTION WIDTH 14.4 % (11.5-14.0); SEGMENTED NEUTROPHILS % (AUTO) 47.2 % (42-78); WHITE BLOOD COUNT 6.4 10^3/uL (4.0-10.5)
[2017-10-09] MEDS: DOCUSATE SODIUM 100 MG CAPSULE PO SCH (09:53)
--- NOTE | 2017-10-09 12:04 | PDOC DISCHARGE SUMMARY ---
General - Admit/Disc Date/PCP Admission Date/Primary Care Provider: LEATHA DUNN MD Discharge Date: 10/09/17 - Discharge Diagnosis (1) Hypoglycemia Is this a current diagnosis for this admission?: Yes Summary: Currently all resolved and readjust the insulin (2) Anemia Is this a current diagnosis for this admission?: Yes Summary: Continues to iron tablets will follow outpatient dentist (3) Hyperkalemia Is this a current diagnosis for this admission?: Yes Summary: Currently all resolved will discontinue lorstan (4) Hypertension Is this a current diagnosis for this admission?: Yes Summary: Currently all stable (5) Peripheral vascular disease Is this a current diagnosis for this admission?: Yes Summary: Since follow with general surgery for that (6) S/P BKA (below knee amputation) Is this a current diagnosis for this admission?: Yes Summary: With the wound care clinic and the Dr. Luis Felipe Harris (7) Type 2 diabetes mellitus Is this a current diagnosis for this admission?: Yes Summary: Decrease the Lantus 10-15 units at night and decrease the Humalog 5 units before each meal and readjust the dose according to the patient's blood sugar next week - Additional Information Resuscitation Status: Full Code Discharge Diet: Diabetic Discharge Activity: Activity As Tolerated Home Medications: Metformin HCl [Glucophage] 1,000 mg PO BID 06/17/17 Timolol Maleate [Timoptic 0.25% Oph Soln 5 ml] 2 drop OU BID 06/17/17 Acetaminophen [Tylenol 325 mg Tablet] 650 mg PO Q4HP PRN #0 tablet 06/28/17 Oxycodone HCl/Acetaminophen [Percocet 5-325 mg Tablet] 1 tab PO Q6HP PRN #30 tablet 06/28/17 Atorvastatin Calcium [Lipitor 10 mg Tablet] 1 tab PO QHS 10/07/17 Latanoprost [Xalatan 0.005% Oph Soln 2.5 ml] 1 drop OU QHS 10/07/17 Acetaminophen [Tylenol 325 mg Tablet] 650 mg PO Q4HP PRN #30 tablet 10/09/17 Docusate Sodium [Colace 100 mg Capsule] 100 mg PO BID #60 capsule 10/09/17 Insulin Glargine,Hum.rec.anlog [Lantus Insulin 100 Unit/mL] 10 unit SUBCUT QHS # 1 insuln.pen 10/09/17 Insulin Lispro [Humalog] 5 unit SQ TID #0 10/09/17 History of Present Illness History of Present Illness: MALGORZATA SOSA is a 77 year old female There is a 77-year-old patients basically a presents with ambulatory surgery for the debridement of the left BKA wound and patient was find the hypoglycemicIn patients with admitting in the medical floor for further evaluations Hospital Course Hospital Course: This is a 77-year-old female presents in the ambulatory surgery for the left BKA wound debridement and patient was hypoglycemia and decided to admit for medical management for the surgery Patients took the Lantus 40 units before the surgery and on 8 do not drink and most likely thus the reason patient's blood sugar was running lowAccording to the patient's been patient was in the shelter blood sugar several times running low Patient was started on D5 and give her D50 and hold insulin and patient's doing well Patient's also found some positive for urine and start the patient on the Cipro Patient's otherwise reduce the dose of the Lantus and patient's blood sugar running 150 range His other medical problems stable And JEREMIAH inhibitors was DC due to the persistent elevated potassiums Physical Exam Vital Signs: Temp Pulse Resp BP Pulse Ox 98.3 F 59 L 24 H 92/44 L 94 10/09/17 07:54 10/09/17 07:54 10/09/17 07:54 10/09/17 07:54 10/09/17 07:54 Intake & Output 10/08/17 10/09/17 10/10/17 06:59 06:59 06:59 Intake Total 1160 1870 Output Total 5 Balance 1160 1865 Weight 98.9 kg 98.9 kg General appearance: PRESENT: no acute distress, well-developed, well-nourished Head exam: PRESENT: atraumatic, normocephalic Eye exam: PRESENT: conjunctiva pink, EOMI, PERRLA. ABSENT: scleral icterus Ear exam: PRESENT: normal external ear exam Mouth exam: PRESENT: moist, tongue midline Neck exam: PRESENT: full ROM. ABSENT: carotid bruit, JVD, lymphadenopathy, thyromegaly Respiratory exam: PRESENT: clear to auscultation caity Cardiovascular exam: PRESENT: RRR. ABSENT: diastolic murmur, rubs, systolic murmur Pulses: PRESENT: normal dorsalis pedis pul, +2 pedal pulses bilateral Vascular exam: PRESENT: normal capillary refill GI/Abdominal exam: PRESENT: normal bowel sounds, soft. ABSENT: distended, guarding, mass, organolmegaly, rebound, tenderness Rectal exam: PRESENT: deferred Extremities exam: PRESENT: left AKA, left BKA Neurological exam: PRESENT: alert, awake, oriented to person, oriented to place , oriented to time, oriented to situation, CN II-XII grossly intact. ABSENT: motor sensory deficit Psychiatric exam: PRESENT: appropriate affect, normal mood. ABSENT: homicidal ideation, suicidal ideation Skin exam: PRESENT: dry, intact, warm. ABSENT: cyanosis, rash Results Laboratory Results: 10/09/17 04:49 10/08/17 04:21 10/08/17 10/09/17 04:21 04:49 WBC 6.4 RBC 3.34 L Hgb 9.2 L Hct 27.8 L MCV 83 MCH 27.4 MCHC 32.9 RDW 14.4 H Plt Count 181 Seg Neutrophils % 47.2 Lymphocytes % 36.9 Monocytes % 8.1 Eosinophils % 6.7 H Basophils % 1.1 Absolute Neutrophils 3.0 Absolute Lymphocytes 2.4 Absolute Monocytes 0.5 Absolute Eosinophils 0.4 Absolute Basophils 0.1 Transferrin 171 L Impressions: Chest X-Ray 10/07/17 00:00 IMPRESSION: NO ACUTE RADIOGRAPHIC FINDING IN THE CHEST. Plan Time Spent: Greater than 30 Minutes - Patient at this point discharge home with the stable conditions start the patient on Cipro follow with the wound care and following office next week Readjust the insulins and check a CBC and Chem-7 next week
[2017-10-09 12:41] VITALS: BP 113/51
== END 2017-10-09 13:20 | disposition home health service (06) | DRG 982 ==
LOC: OROUT 11:20 → EDSTATUS 13:00 → OROUT 17:26 → 4N 17:26 → OROUT 10-09 13:20 → 4N 10-09 13:20
PROVIDERS: ADMIT Surgery; ATTEND Surgery
PROC: 0JDQ3ZZ Extraction of Right Foot Subcutaneous Tissue and Fascia, Percutaneous Approach (ICD-10-PCS; 2017-10-08)
PROC: 0LDP0ZZ Extraction of Left Lower Leg Tendon, Open Approach (ICD-10-PCS; principal; 2017-10-08 15:00)
DX: E11.621 Type 2 diabetes mellitus with foot ulcer (principal); L97.419 Non-pressure chronic ulcer of right heel and midfoot with unspecified severity; T87.54 Necrosis of amputation stump, left lower extremity; E11.649 Type 2 diabetes mellitus with hypoglycemia without coma; D64.9 Anemia, unspecified; E87.5 Hyperkalemia; I10 Essential (primary) hypertension; E11.51 Type 2 diabetes mellitus with diabetic peripheral angiopathy without gangrene; E11.40 Type 2 diabetes mellitus with diabetic neuropathy, unspecified; E66.01 Morbid (severe) obesity due to excess calories; K21.9 Gastro-esophageal reflux disease without esophagitis; M19.90 Unspecified osteoarthritis, unspecified site; E78.5 Hyperlipidemia, unspecified; Z90.49 Acquired absence of other specified parts of digestive tract; Z89.512 Acquired absence of left leg below knee; Z79.899 Other long term (current) drug therapy; Z79.4 Long term (current) use of insulin
CPT/HCPCS: 1470; 36415; 71010; 80048; 82607; 82728; 82746; 82947; 82962; 83540; 83550; 84132; 84466; 85025; 85027; 85045; 85610; 85730; 87040; 87086; 87088; 87186; 88304; 90686; 93005; 93010; J1170; J1644; J1815; J2250; J2405; J2704; J3010; J3490

== ENCOUNTER → 2018-01-01 | Outpatient (CLI) | payer MEDICARE, BC ==
--- NOTE | 2018-01-01 15:53 | RADIOLOGY REPORT (SQ) ---
EXAM DESCRIPTION: FOOT RIGHT COMPLETE COMPLETED DATE/TIME: 01/01/2018 3:03 pm REASON FOR STUDY: NON PRESSURE ULCER RT FOOT FAT LAYER L97.512 NON-PRS CHRONIC ULCER OTH PRT RIGHT FOOT W FAT LAYER COMPARISON: 05/31/2017 NUMBER OF VIEWS: Three views. TECHNIQUE: AP, lateral and oblique radiographic images acquired of the right foot. LIMITATIONS: None. FINDINGS: MINERALIZATION: Osteopenia. BONES: No acute fracture or dislocation. No worrisome bone lesions. JOINTS: No effusions. SOFT TISSUES: Vascular calcifications. No foreign body. OTHER: No other significant finding. IMPRESSION: No evidence of osteomyelitis. TECHNICAL DOCUMENTATION: JOB ID: [id number] [employer]- All Rights Reserved
--- NOTE | 2018-01-02 08:13 | XCELERA REPORT ---
[address] [address] Lower Extremity Arterial Evaluation Name: MALGORZATA SOSA Age: 77 yrs Gender: Female : 1940 Patient Status: Outpatient Patient Location: Study Date: 01/01/2018 01:49 PM Procedure: A color flow and duplex scan of the lower extremity arteries was performed bilaterally with velocity and waveform anaylsis. Reason For Study: ULCER Ordering Physician: SOLIS CALDERON Performed By: Ernestina Harrell Measurements and Calculations Right Left BIOMETRICS TECHNICIAN PSV 61.3 66.8 cm/sec Prox PFA PSV -38.8 -53.0 cm/sec Prox SFA PSV -42.9 71.5 cm/sec Mid SFA PSV -24.1 -35.4 cm/sec Dist SFA PSV -47.8 -39.0 cm/sec Prox Pop A PSV 47.5 32.6 cm/sec Dist KAITY PSV 55.0 cm/sec Dist VICE INVESTIGATOR PSV -66.4 cm/sec Brian Pedis PSV -39.3 cm/sec Right Side Arterial Evaluation Slightly low to normal velocity and biphasic waveforms noted from the Common Femoral artery to the infrageniculate vessels. Monophasic in the Deep Femoral artery. 20-49 % stenosis at the Aorta Iliac inflow . Ankle Brachial index was not done. Left Side Arterial Evaluation Slightly low to normal velocity and biphasic waveforms noted from the Common Femoral artery to the Popliteal artery . Below knee amputation 20-49 % stenosis at the Aorta Iliac inflow . Ankle Brachial index was not done. Interpretation Summary Moderate hemodynamically significant lesions in the bilateral lower extremities, on duplex imaging, at rest. : SOLIS CALDERON > Solis Calderon
== END ==
LOC: SP 13:45
PROVIDERS: ATTEND Surgery
DX: L97.512 Non-pressure chronic ulcer of other part of right foot with fat layer exposed (principal)
CPT/HCPCS: 93925

== ENCOUNTER 2018-03-19 13:08 | Emergency (ER) | payer MEDICARE, BC ==
[2018-03-19] MEDS ORDERED: NORMAL SALINE 1000 ML 1,000 ML IV ONE (13:27)
[2018-03-19] MEDS ORDERED: MECLIZINE HCL 25 MG TABLET PO ONE (13:27)
[2018-03-19 13:55] LABS: ABSOLUTE BASOPHILS # (AUTO) 0.1 10^3/uL (0.0-0.2); ABSOLUTE EOSINOPHILS # (AUTO) 0.1 10^3/uL (0.0-0.6); ABSOLUTE LYMPHOCYTES (AUTO) 1.9 10^3/uL (0.5-4.7); ABSOLUTE MONOCYTES (AUTO) 0.4 10^3/uL (0.1-1.4); ABSOLUTE NEUT (AUTO) 4.4 10^3/uL (1.7-8.2); BASOPHILS % (AUTO) 0.8 % (0-2); HEMATOCRIT 37.3 % (36.0-47.0); HEMOGLOBIN 12.3 g/dL (12.0-15.5); LYMPHOCYTES % (AUTO) 27.6 % (13-45); MEAN CORPUSCULAR HEMOGLOBIN 27.6 pg (27.0-33.4); MEAN CORPUSCULAR VOLUME 84 fl (80-97); MONOCYTES % (AUTO) 5.8 % (3-13); PLATELET COUNT 323 10^3/uL (150-450); RED BLOOD COUNT 4.46 10^6/uL (3.72-5.28); RED CELL DISTRIBUTION WIDTH 13.4 % (11.5-14.0); SEGMENTED NEUTROPHILS % (AUTO) 63.8 % (42-78); TOTAL CELLS COUNTED % (AUTO) 100 %; WHITE BLOOD COUNT 6.9 10^3/uL (4.0-10.5)
--- NOTE | 2018-03-19 14:14 | RADIOLOGY REPORT (SQ) ---
EXAM DESCRIPTION: CT HEAD WITHOUT COMPLETED DATE/TIME: 03/19/2018 2:00 pm REASON FOR STUDY: dizziness vomiting COMPARISON: CT brain 08/30/2016, 05/28/2015 TECHNIQUE: Axial images acquired through the brain without intravenous contrast. Images reviewed wi th bone, brain and subdural windows. Additional sagittal and coronal reconstructions were generated. Images stored on PACS. All CT scanners at this facility use dose modulation, iterative reconstruction, and/or weight based d osing when appropriate to reduce radiation dose to as low as reasonably achievable (ALARA). [facility]: Dose Right [facility]: CareDose [facility]: Dose Right [facility]: Teradose 4D [facility]: pic5 RADIATION DOSE: CT Rad equipment meets quality standard of care and radiation dose reduction techniq ues were employed. CTDIvol: 53.2 mGy. DLP: 991 mGy-cm. mGy. LIMITATIONS: None. FINDINGS: VENTRICLES: Normal size and contour for age, stable compared to previous studies. CEREBRUM: No masses. No hemorrhage. No midline shift. No evidence for acute infarction. Extensive low attenuation in the bifrontal and biparietal deep periventricular white matter from diffuse small vessel ischemic change, stable compared to 2014 and 2015 CEREBELLUM: No masses. No hemorrhage. No alteration of density. No evidence for acute infarction. EXTRAAXIAL SPACES: No fluid collections. No masses. ORBITS AND GLOBE: No intra- or extraconal masses. Normal contour of globes, post cataract surgery. CALVARIUM: No fracture. PARANASAL SINUSES: No fluid or mucosal thickening. SOFT TISSUES: No mass or hematoma. OTHER: No other significant finding. IMPRESSION: Diffuse white matter disease, stable. No acute findings EVIDENCE OF ACUTE STROKE: NO. COMMENT: Quality ID # [id number]: Final reports with documentation of one or more dose reduction techniques (e.g., Automated exposure control, adjustment of the mA and/or kV according to patient size, use of iterative reconstruction technique) TECHNICAL DOCUMENTATION: JOB ID: [id number] [employer]- All Rights Reserved Reading location - IP/workstation name: [email or web address]
--- NOTE | 2018-03-19 14:15 | RADIOLOGY REPORT (SQ) ---
EXAM DESCRIPTION: CHEST SINGLE VIEW COMPLETED DATE/TIME: 03/19/2018 1:43 pm REASON FOR STUDY: dizzy COMPARISON: Chest films 10/07/2017, 05/31/2017, 12/06/2008 EXAM PARAMETERS: NUMBER OF VIEWS: One view. TECHNIQUE: Single frontal radiographic view of the chest acquired. RADIATION DOSE: NA LIMITATIONS: None. FINDINGS: LUNGS AND PLEURA: No opacities, masses or pneumothorax. No pleural effusion. MEDIASTINUM AND HILAR STRUCTURES: No masses. Contour normal. HEART AND VASCULAR STRUCTURES: Heart normal in size. Normal vasculature. BONES: No acute findings. HARDWARE: None in the chest. OTHER: No other significant finding. IMPRESSION: NO ACUTE RADIOGRAPHIC FINDING IN THE CHEST. TECHNICAL DOCUMENTATION: JOB ID: [id number] [employer]- All Rights Reserved Reading location - IP/workstation name: [email or web address]
[2018-03-19 14:25] LABS: ALANINE AMINOTRANSFERASE 14 U/L (9-52); ALBUMIN 3.8 g/dL (3.5-5.0); ALKALINE PHOSPHATASE 95 U/L (38-126); ANION GAP 11 (5-19); ASPARTATE AMINO TRANSFERASE 28 U/L (14-36); BILIRUBIN,DIRECT 0.3 mg/dL (0.0-0.4); BILIRUBIN,TOTAL 0.3 mg/dL (0.2-1.3); BLOOD UREA NITROGEN 22 mg/dL (7-20); CALCIUM 10.3 mg/dL (8.4-10.2); CARBON DIOXIDE 27 mmol/L (22-30); CHLORIDE 102 mmol/L (98-107); CREATINE KINASE 23 U/L (30-135); GLUCOSE 62 mg/dL (75-110); POTASSIUM 4.6 mmol/L (3.6-5.0); TOTAL PROTEIN 7.3 g/dL (6.3-8.2)
[2018-03-19 14:35] LABS: CREATINE KINASE MB 0.31 ng/mL (<4.55)
[2018-03-19 14:36] LABS: TROPONIN I < 0.012 ng/mL
--- NOTE | 2018-03-19 14:44 | ER Document Report ---
ED Dizziness/Weakness - General Chief Complaint: Dizziness Stated Complaint: DIZZINESS Time Seen by Provider: 03/19/18 13:26 Notes: 77-year-old female presents to the ER complaining of nausea and dizziness. This started this morning after waking up. Patient denied any chest pain or shortness of breath. Denies any abdominal pain denies diarrhea. Denies fever chills cough or sore throat. Denies any headache or blurred vision. Denies extremity numbness tingling or weakness. She describes the dizziness is just a lightheadedness. Moving her head does not make it better or worse. She denies any falls trauma or head injury. She denies any night sweats cough hemoptysis or gland swelling. TRAVEL OUTSIDE OF THE [place] IN LAST 30 DAYS: No - Related Data Allergies/Adverse Reactions: No Known Allergies Allergy (Verified 10/04/17 09:47) Past Medical History - Social History Smoking Status: Never Smoker Chew tobacco use (# tins/day): No Frequency of alcohol use: None Drug Abuse: None Family History: Arthritis, CAD, DM, Hyperlipidemia, Hypertension Patient has suicidal ideation: No Patient has homicidal ideation: No - Past Medical History Cardiac Medical History: Reports: Hx Hypercholesterolemia, Hx Hypertension, Hx Peripheral Vascular Disease Denies: Hx Coronary Artery Disease, Hx Heart Attack Pulmonary Medical History: Denies: Hx Asthma, Hx Bronchitis, Hx COPD, Hx Pneumonia Neurological Medical History: Denies: Hx Cerebrovascular Accident, Hx Seizures Endocrine Medical History: Reports: Hx Diabetes Mellitus Type 1, Hx Diabetes Mellitus Type 2 Renal/ Medical History: Denies: Hx Peritoneal Dialysis GI Medical History: Reports: Hx Gastroesophageal Reflux Disease Musculoskeltal Medical History: Denies Hx Arthritis Skin Medical History: Reports Hx Cellulitis Psychiatric Medical History: Denies: Hx Depression Past Surgical History: Reports: Hx Cholecystectomy, Other - Midline incision for uncertain reason - Immunizations Immunizations up to date: Yes Hx Diphtheria, Pertussis, Tetanus Vaccination: Yes Hx Pneumococcal Vaccination: 11/18/15 Review of Systems - Review of Systems Cardiovascular: Dizziness. denies: Chest pain, Dyspnea Respiratory: denies: Short of breath Gastrointestinal: Nausea. denies: Abdominal pain, Vomiting Neurological/Psychological: denies: Confusion, Dementia -: Yes All other systems reviewed and negative Physical Exam - Vital signs Vitals: Resp 15 03/19/18 13:16 - Notes Notes: GENERAL_APPEARANCE: well_nourished, alert, cooperative, no_acute_distress, no_ obvious_discomfort. VITALS: reviewed, see vital signs table. HEAD: no_swelling\tenderness on the head. EYES: PERRL, EOMI, conjunctiva_clear. NOSE: no_nasal_discharge. MOUTH: Slight decreased moisture. THROAT: no_throat_inflammation, no_airway_obstruction. no_lymphadenopathy NECK: supple, no_neck_tenderness, (-)thyromegaly. BACK: no_back_tenderness. CHEST_WALL: no_chest_tenderness. LUNGS: no_wheezing, no_rales, no_rhonchi, (-)accessory muscle use, good air exchange bilateral. HEART: normal_rate, normal_rhythm, normal_S1, normal_S2, (-)S3, (-)S4, no_ murmur, no_rub. ABDOMEN: normal_BS, soft, no_abd_tenderness, (-)guarding, (-)rebound, no_ organomegaly, no_abd_masses. EXTREMITIES: good pulses in all_extremities, no_swelling\tenderness in the extremities, no_edema. SKIN: warm, dry, good_color, no_rash. MENTAL_STATUS: speech_clear, oriented_X_3, normal_affect, responds_ appropriately to questions. NEURO: Neg Motor or Sensory Deficits on exam, CN 2-12 intact, DTR 2+ symmetric x 4, No cerbellar signs Course - Re-evaluation Re-evalutation: 03/19/18 14:44 Elderly female presents to the ER dizziness and nausea. This is resolved. Doing a workup scan her head looking for, strokes or hemorrhages. Blood work for cardiac etiology. 03/19/18 15:32 Patient is feeling better. She has got some IV fluids. CT was normal lab work was normal. 03/19/18 17:00 Patient has a urinary tract infection was given a dose of Rocephin here urine was cultured we placed on Bactrim for home. Patient stable hydrated nontoxic not septic. - Vital Signs Vital signs: Temp Pulse Resp BP Pulse Ox 98.3 F 69 17 136/66 H 97 03/19/18 13:25 03/19/18 13:25 03/19/18 16:01 03/19/18 16:01 03/19/18 15:53 - Laboratory Result Diagrams: 03/19/18 13:25 03/19/18 13:25 Laboratory results interpreted by me: 03/19/18 03/19/18 13:25 16:05 BUN 22 H Est GFR (Non-Af Amer) 59 L Glucose 62 L Calcium 10.3 H Creatine Kinase 23 L Urine Blood SMALL H Urine Nitrite POSITIVE H Ur Leukocyte Esterase LARGE H Discharge - Discharge Clinical Impression: Dizziness UTI (urinary tract infection) Qualifiers: Urinary tract infection type: site unspecified Hematuria presence: without hematuria Qualified Code(s): N39.0 - Urinary tract infection, site not specified Condition: Good Instructions: Antinausea Medication ([facility]), Dizziness ([facility]), Urinary Tract Infection ([facility]) Prescriptions: Ondansetron [Zofran Odt 4 mg Tablet] 1 - 2 tab PO Q4H PRN #15 tab.rapdis PRN Reason: For Nausea/Vomiting Sulfamethoxazole/Trimethoprim [Sulfamethoxazole-Tmp Ds Tablet] 1 each PO BID # 14 tablet Referrals: LEAHTA DUNN MD [Primary Care Provider] - Follow up as needed
[2018-03-19 16:55] LABS: APPEARANCE,URINE CLOUDY; BILIRUBIN,URINE NEGATIVE (NEGATIVE); COLOR,URINE YELLOW; GLUCOSE, URINE NEGATIVE (NEGATIVE); KETONES,URINE NEGATIVE (NEGATIVE); LEUKOCYTE ESTERASE,URINE LARGE (NEGATIVE); NITRITE,URINE POSITIVE (NEGATIVE); PROTEIN,URINE NEGATIVE (NEGATIVE); UROBILINOGEN,URINE NEGATIVE mg/dL (<2.0)
[2018-03-19] MEDS ORDERED: CEFTRIAXONE INJ 1000 MG VIAL IV ONE (16:57)
[2018-03-19 17:50] VITALS: BP 118/53
--- NOTE | 2018-03-19 23:23 | EKG REPORT ---
SEVERITY:- ABNORMAL ECG - SINUS RHYTHM LEFT ANTERIOR FASCICULAR BLOCK : Confirmed by: Sagar Chaidez 19-Mar-2018 23:22:29
== END 2018-03-19 17:51 | disposition home or self-care (01) ==
LOC: ER 13:08
DX: N39.0 Urinary tract infection, site not specified (principal); R42 Dizziness and giddiness; R11.0 Nausea; I10 Essential (primary) hypertension
CPT/HCPCS: 93005; 36415; 87086; 82553; 82550; 85025; 87088; 80053; 81001; 84484; 87186; 71045; 70450; 93010; A9270; J0696; J7030

== ENCOUNTER 2018-03-20 14:30 | Inpatient (IN) | payer MEDICARE, BC ==
--- NOTE | 2018-03-20 15:04 | ER Document Report ---
ED General - General Chief Complaint: Weakness Stated Complaint: WEAKNESS Time Seen by Provider: 03/20/18 14:42 Notes: The patient is a 77-year-old female who presents with worsening generalized weakness, nausea, vomiting and feeling the room is spinning. She was seen in the ER yesterday for urinary tract infection and started on Bactrim, but the patient is unable to keep the Bactrim down and she is unable to tolerate any fluids by mouth because of her nausea. The Zofran that she was sent home with yesterday's not working. She had a negative head CT scan and chest x-ray, along with normal blood work. Patient denies syncope, chest pain, shortness of breath, flank pain, fevers, blurry vision, focal weakness, numbness, tingling or headache. TRAVEL OUTSIDE OF THE [place] IN LAST 30 DAYS: No - Related Data Allergies/Adverse Reactions: No Known Allergies Allergy (Verified 10/04/17 09:47) Past Medical History - General Information source: Patient, Emergency Med Personnel - Social History Smoking Status: Unknown if Ever Smoked Family History: Arthritis, CAD, DM, Hyperlipidemia, Hypertension - Past Medical History Cardiac Medical History: Reports: Hx Hypercholesterolemia, Hx Hypertension, Hx Peripheral Vascular Disease Denies: Hx Coronary Artery Disease, Hx Heart Attack Pulmonary Medical History: Denies: Hx Asthma, Hx Bronchitis, Hx COPD, Hx Pneumonia Neurological Medical History: Denies: Hx Cerebrovascular Accident, Hx Seizures Endocrine Medical History: Reports: Hx Diabetes Mellitus Type 1, Hx Diabetes Mellitus Type 2 Renal/ Medical History: Denies: Hx Peritoneal Dialysis GI Medical History: Reports: Hx Gastroesophageal Reflux Disease Musculoskeltal Medical History: Denies Hx Arthritis Skin Medical History: Reports Hx Cellulitis Psychiatric Medical History: Denies: Hx Depression Past Surgical History: Reports: Hx Cholecystectomy, Other - Midline incision for uncertain reason - Immunizations Immunizations up to date: Yes Hx Diphtheria, Pertussis, Tetanus Vaccination: Yes Hx Pneumococcal Vaccination: 11/18/15 Review of Systems - Review of Systems Notes: REVIEW OF SYSTEMS: CONSTITUTIONAL: -fevers, -chills EENT: -eye pain, -difficulty swallowing, -nasal congestion CARDIOVASCULAR: -chest pain, -syncope. RESPIRATORY: -cough, -SOB GASTROINTESTINAL: -abdominal pain, +nausea, +vomiting, -diarrhea GENITOURINARY: +dysuria, -hematuria MUSCULOSKELETAL: -back pain, -neck pain SKIN: -rash or skin lesions. HEMATOLOGIC: -easy bruising or bleeding. LYMPHATIC: -swollen, enlarged glands. NEUROLOGICAL: -altered mental status or loss of consciousness, -headache, + dizziness PSYCHIATRIC: -anxiety, -depression. ALL OTHER SYSTEMS REVIEWED AND NEGATIVE. Physical Exam - Vital signs Vitals: Pulse Ox 97 03/20/18 14:38 - Notes Notes: PHYSICAL EXAMINATION: GENERAL: Well-appearing, well-nourished and in no acute distress. HEAD: Atraumatic, normocephalic. EYES: Pupils equal round and reactive to light, extraocular movements intact, sclera anicteric, conjunctiva are normal. ENT: nares patent, oropharynx clear without exudates. Moist mucous membranes. NECK: Normal range of motion, supple without lymphadenopathy LUNGS: Breath sounds clear to auscultation bilaterally and equal. No wheezes rales or rhonchi. HEART: Regular rate and rhythm without murmurs ABDOMEN: Soft, mild suprapubic tenderness, normoactive bowel sounds. No guarding, no rebound. No masses appreciated. EXTREMITIES: Normal range of motion, no pitting or edema. No cyanosis. NEUROLOGICAL: Cranial nerves grossly intact. Horizontal nystagmus. +past pointing in both arms, abnormal alternating rapid hand movements. Normal speech. Normal sensory and motor exams. PSYCH: Normal mood, normal affect. SKIN: Warm, Dry, normal turgor, no rashes or lesions noted. Course - Re-evaluation Re-evalutation: Patient with vertiginous symptoms, which may be leading to her nausea and vomiting. However due to her age and abnormal posterior cerebellar signs on exam, will obtain an MRI to assess for posterior cerebellar infarction or bleeds. The patient's CAT scan yesterday was normal. Patient also has nausea and vomiting with suprapubic abdominal pain, which is most likely related to her cystitis, will obtain CAT scan of her abdomen and pelvis to assess for any intra-abdominal pathology. She is also slightly hypoglycemic and D50 given and food given after a normal CT scan. 03/20/18 17:34 Pt's MRI does not show any posterior cerebellar involvement. Her symptoms are related to BPPV now. CT scan of her abdomen pelvis also did not show any acute abnormalities other than a easily reducible hernia. With the known urinary tract infection, inability to keep any oral antibiotics down and increased leukocytosis, patient requires admission for IV antibiotics, fluids due to failed outpatient treatment. Page Dr. Schmitt and awaiting callback. 03/20/18 17:[address] Schmitt and will admit patient as Inpatient to [facility]. - Vital Signs Vital signs: Temp Pulse Resp BP Pulse Ox 21 H 125/52 L 97 03/20/18 18:00 03/20/18 14:42 03/20/18 18:00 - Laboratory Result Diagrams: 03/20/18 15:08 03/20/18 15:08 Laboratory results interpreted by me: 03/20/18 03/20/18 15:08 15:08 WBC 11.5 H Hgb 11.2 L Hct 34.9 L Seg Neutrophils % 83.5 H Lymphocytes % 11.9 L Absolute Neutrophils 9.6 H Est GFR (Non-Af Amer) 54 L Glucose 54 L Creatine Kinase 20 L Albumin 3.3 L - Diagnostic Test Radiology reviewed: Image reviewed, Reports reviewed Radiology results interpreted by me: CT A/P: Small umbilical and paraumbilical hernias containing mesenteric fat. No CT evidence of bowel obstruction, or free intraperitoneal air or fluid. MRI Head: Extensive chronic small vessel ischemic change in the hemispheric white matter. No MR evidence of acute cerebellar or cerebral infarct EVIDENCE OF ACUTE STROKE: NO. Discharge - Discharge Clinical Impression: Failure of outpatient treatment, Vertiginous syndrome, Hypoglycemia UTI (urinary tract infection) Qualifiers: Urinary tract infection type: site unspecified Hematuria presence: without hematuria Qualified Code(s): N39.0 - Urinary tract infection, site not specified Nausea and vomiting Qualifiers: Vomiting type: unspecified Vomiting Intractability: non-intractable Qualified Code(s): R11.2 - Nausea with vomiting, unspecified Condition: Stable Disposition: ADMITTED INPATIENT Admitting Provider: Oskar Unit Admitted: Telemetry
[2018-03-20] MEDS ORDERED: METOCLOPRAMIDE HCL INJ/PF 10 MG/2 ML SDV IV ONE (15:25)
[2018-03-20 15:34] LABS: ABSOLUTE BASOPHILS # (AUTO) 0.1 10^3/uL (0.0-0.2); ABSOLUTE EOSINOPHILS # (AUTO) 0.1 10^3/uL (0.0-0.6); ABSOLUTE LYMPHOCYTES (AUTO) 1.4 10^3/uL (0.5-4.7); ABSOLUTE MONOCYTES (AUTO) 0.4 10^3/uL (0.1-1.4); ABSOLUTE NEUT (AUTO) 9.6 10^3/uL (1.7-8.2); BASOPHILS % (AUTO) 0.6 % (0-2); EOSINOPHILS % (AUTO) 0.7 % (0-6); HEMATOCRIT 34.9 % (36.0-47.0); HEMOGLOBIN 11.2 g/dL (12.0-15.5); LYMPHOCYTES % (AUTO) 11.9 % (13-45); MEAN CORPUSCULAR VOLUME 84 fl (80-97); MONOCYTES % (AUTO) 3.3 % (3-13); PLATELET COUNT 315 10^3/uL (150-450); RED BLOOD COUNT 4.15 10^6/uL (3.72-5.28); RED CELL DISTRIBUTION WIDTH 13.4 % (11.5-14.0); SEGMENTED NEUTROPHILS % (AUTO) 83.5 % (42-78); TOTAL CELLS COUNTED % (AUTO) 100 %; WHITE BLOOD COUNT 11.5 10^3/uL (4.0-10.5)
[2018-03-20] MEDS ORDERED: MECLIZINE HCL 25 MG TABLET PO ONE (15:35)
[2018-03-20 15:50] LABS: ALANINE AMINOTRANSFERASE 26 U/L (9-52); ALBUMIN 3.3 g/dL (3.5-5.0); ALKALINE PHOSPHATASE 82 U/L (38-126); ANION GAP 11 (5-19); ASPARTATE AMINO TRANSFERASE 22 U/L (14-36); BILIRUBIN,DIRECT 0.3 mg/dL (0.0-0.4); BILIRUBIN,TOTAL 0.3 mg/dL (0.2-1.3); BLOOD UREA NITROGEN 17 mg/dL (7-20); CALCIUM 9.7 mg/dL (8.4-10.2); CARBON DIOXIDE 26 mmol/L (22-30); CHLORIDE 105 mmol/L (98-107); CREATINE KINASE 20 U/L (30-135); GLUCOSE 54 mg/dL (75-110); LIPASE 78.1 U/L (23-300); SODIUM 141.6 mmol/L (137-145); TOTAL PROTEIN 6.4 g/dL (6.3-8.2)
[2018-03-20] MEDS ORDERED: DEXTROSE 50%-WATER 25 GM/50 ML DISP.SYRIN IV ONE (15:52)
--- NOTE | 2018-03-20 16:28 | RADIOLOGY REPORT (SQ) ---
EXAM DESCRIPTION: CT ABD/PELVIS WITH IV ONLY COMPLETED DATE/TIME: 03/20/2018 3:42 pm REASON FOR STUDY: N/V, decreased bowel movements COMPARISON: None. TECHNIQUE: CT scan of the abdomen and pelvis performed using helical scanning technique with dynamic intravenous contrast injection. No oral contrast. Images reviewed with lung, soft tissue, and bone windows. Reconstructed coronal and sagittal MPR images reviewed. Delayed images for evaluation of the urinary system also acquired. All images stored on PACS. All CT scanners at this facility use dose modulation, iterative reconstruction, and/or weight based d osing when appropriate to reduce radiation dose to as low as reasonably achievable (ALARA). [facility]: Dose Right [facility]: CareDose [facility]: Dose Right [facility]: Teradose 4D [facility]: Mobakids CONTRAST TYPE AND DOSE: contrast/concentration: Isovue 370.00 mg/ml; Total Contrast Delivered: 100.0 ml; Total Saline Delivered: 70.0 ml RENAL FUNCTION: Creatinine 0.9 RADIATION DOSE: CT Rad equipment meets quality standard of care and radiation dose reduction techniq ues were employed. CTDIvol: 19.9 - 21.1 mGy. DLP: 2361 mGy-cm.. LIMITATIONS: No oral contrast FINDINGS: LOWER CHEST: Hiatal hernia. Lung bases are clear LIVER: Normal size. No masses. No dilated ducts. SPLEEN: Normal size. No focal lesions. PANCREAS: No masses. No significant calcifications. No adjacent inflammation or peripancreatic fluid collections. Pancreatic duct not dilated. GALLBLADDER: Surgically absent ADRENAL GLANDS: No significant masses or asymmetry. RIGHT KIDNEY AND URETER: No solid masses. No significant calcifications. No hydronephrosis or hyd roureter. LEFT KIDNEY AND URETER: No solid masses. No significant calcifications. No hydronephrosis or hydr oureter. AORTA AND VESSELS: No aneurysm. No dissection. Renal arteries, SMA, celiac without stenosis. RETROPERITONEUM: No retroperitoneal adenopathy, hemorrhage or masses. BOWEL AND PERITONEAL CAVITY: No masses or inflammatory changes. No free fluid or peritoneal masses. APPENDIX: Normal. PELVIS: No mass. No free fluid. Normal bladder. ABDOMINAL WALL: There is an umbilical hernia with a 2 cm anterior abdominal wall defect, through whic h mesenteric fat is protruding into the periumbilical soft tissues, best shown on coronal reconstruct ion image 20 and sagittal image 35. A second, smaller ventral hernia adjacent to the umbilical herni a is present containing mesenteric fat. BONES: No significant or acute findings. OTHER: No other significant finding. IMPRESSION: Small umbilical and paraumbilical hernias containing mesenteric fat. No CT evidence of bowel obstruction, or free intraperitoneal air or fluid. TECHNICAL DOCUMENTATION: JOB ID: [id number] Quality ID # [id number]: Final reports with documentation of one or more dose reduction techniques (e.g., Au tomated exposure control, adjustment of the mA and/or kV according to patient size, use of iterative reconstruction technique) 2010 [employer]- All Rights Reserved Reading location - IP/workstation name: [email or web address]
--- NOTE | 2018-03-20 17:19 | RADIOLOGY REPORT (SQ) ---
EXAM DESCRIPTION: MRI HEAD WITHOUT COMPLETED DATE/TIME: 03/20/2018 5:06 pm REASON FOR STUDY: ataxia, posterior cerebellar signs on exam COMPARISON: CT brain 03/19/2018 TECHNIQUE: Multiplanar imaging includes non-contrasted T1, T2, FLAIR, and diffusion with ADC map seq uences. Images stored on PACS. LIMITATIONS: None. FINDINGS: ANATOMY: No developmental anomalies. Normal vascular flow voids. Pituitary fossa normal. CSF SPACES: Mild prominence of the ventricles and sulci, stable CEREBRUM: Diffuse chronic small vessel ischemic change throughout the hemispheric white matter, stabl e. No MR evidence of acute ischemic change, acute intracranial hemorrhage, mass effect, or midline shift . POSTERIOR FOSSA: No signal alteration. No hemorrhage. No edema, masses or mass effect. Internal camila tory canals, cerebello-pontine angles, mastoids normal. DIFFUSION IMAGING: Negative for acute or sub-acute infarction. ORBITS: No masses. Globes post cataract surgery. PARANASAL SINUSES: No fluid levels. Mucosa normal. OTHER: No other significant finding. IMPRESSION: Extensive chronic small vessel ischemic change in the hemispheric white matter No MR evidence of acute cerebellar or cerebral infarct EVIDENCE OF ACUTE STROKE: NO. TECHNICAL DOCUMENTATION: JOB ID: [id number] [employer]- All Rights Reserved Reading location - IP/workstation name: [email or web address]
[2018-03-20] MEDS ORDERED: OXYCODONE-ACETAMINOPHEN 5-325 MG TABLET PO PRN (18:11)
[2018-03-20] MEDS ORDERED: ACETAMINOPHEN 325 MG TABLET PO PRN (18:11)
[2018-03-20] MEDS ORDERED: IPRATROPIUM/ALBUTEROL 0.5-2.5 MG/3 ML AMPUL NEB PRN (18:11)
[2018-03-20] MEDS ORDERED: NORMAL SALINE 1000 ML 1,000 ML IV PRN (18:11)
[2018-03-20] MEDS ORDERED: ONDANSETRON HCL INJ/PF 4 MG/2 ML SDV IV PRN (18:11)
[2018-03-20] MEDS ORDERED: DEXTROSE 40% GEL 15 GM TUBE PO PRN ×2 (18:17)
[2018-03-20] MEDS ORDERED: DEXTROSE 50%-WATER 25 GM/50 ML DISP.SYRIN IV PRN ×2 (18:17)
[2018-03-20] MEDS ORDERED: GLUCAGON,HUMAN RECOMB 1 MG INJ IM PRN (18:17)
[2018-03-20] MEDS ORDERED: CEFTRIAXONE 1 GM/D5W RTU 1 GM/50 ML RTUPB IV SCH (19:00)
[2018-03-20] MEDS: CEFTRIAXONE SODIUM 1,000 MG in DEXTROSE 5%-WATER 50 ML IV SCH (22:08)
[2018-03-20] MEDS: INSULIN DETEMIR 100 UNIT/ML 3 ML PEN SUBCUT SCH (22:09)
[2018-03-20] MEDS: INSULIN LISPRO 100 UNIT/ML 3 ML VIAL SUBCUT PRN (22:12)
[2018-03-20] MEDS: LATANOPROST 0.005% OPH SOLN 2.5 ML OU SCH (22:14)
[2018-03-20] MEDS: PANTOPRAZOLE SODIUM 40 MG VIAL IV SCH (22:14)
[2018-03-20 22:15] LABS: CREATINE KINASE MB 0.24 ng/mL (<4.55)
[2018-03-20 22:19] LABS: TROPONIN I < 0.012 ng/mL
--- NOTE | 2018-03-20 23:32 | EKG REPORT ---
SEVERITY:- ABNORMAL ECG - SINUS RHYTHM LAD, CONSIDER LAFB OR INFERIOR INFARCT : Confirmed by: Sagar Chaidez 20-Mar-2018 23:31:56
[2018-03-21 03:07] LABS: CREATINE KINASE MB < 0.22 ng/mL (<4.55); TROPONIN I < 0.012 ng/mL
[2018-03-21] MEDS: ENOXAPARIN SODIUM INJ 40 MG/0.4 ML DISP.SYRIN SUBCUT SCH (09:15)
[2018-03-21] MEDS: DOCUSATE SODIUM 100 MG CAPSULE PO SCH (09:15)
[2018-03-21] MEDS: TIMOLOL MALEATE 0.25% OPH SOLN 5 ML OU SCH ×2 (09:16→17:23)
[2018-03-21] MEDS: PANTOPRAZOLE SODIUM 40 MG VIAL IV SCH ×2 (09:16→21:20)
[2018-03-21 09:55] LABS: HEMATOCRIT 34.9 % (36.0-47.0); HEMOGLOBIN 11.2 g/dL (12.0-15.5); MEAN CORPUSCULAR HEMOGLOBIN 27.1 pg (27.0-33.4); MEAN CORPUSCULAR HGB CONC 32.2 g/dL (32.0-36.0); MEAN CORPUSCULAR VOLUME 84 fl (80-97); PLATELET COUNT 301 10^3/uL (150-450); RED BLOOD COUNT 4.15 10^6/uL (3.72-5.28); RED CELL DISTRIBUTION WIDTH 13.4 % (11.5-14.0); WHITE BLOOD COUNT 8.3 10^3/uL (4.0-10.5)
[2018-03-21 10:13] LABS: ANION GAP 9 (5-19); BLOOD UREA NITROGEN 12 mg/dL (7-20); CALCIUM 9.9 mg/dL (8.4-10.2); CARBON DIOXIDE 25 mmol/L (22-30); CHLORIDE 106 mmol/L (98-107); GLUCOSE 92 mg/dL (75-110); POTASSIUM 4.4 mmol/L (3.6-5.0); SODIUM 139.6 mmol/L (137-145)
[2018-03-21 10:24] LABS: CREATINE KINASE MB 0.24 ng/mL (<4.55)
[2018-03-21 10:28] LABS: TROPONIN I < 0.012 ng/mL
--- NOTE | 2018-03-21 12:14 | RADIOLOGY REPORT (SQ) ---
EXAM DESCRIPTION: CAROTID DOPPLER COMPLETED DATE/TIME: 03/21/2018 11:39 am REASON FOR STUDY: diziness COMPARISON: MRI brain 03/20/2018 CT brain 03/20/2018 TECHNIQUE: Grayscale ultrasound, Doppler velocity and spectra, and color Doppler images acquired of the extra-cranial carotid and vertebral arteries. Images stored on PACS. LIMITATIONS: None. FINDINGS: RIGHT CAROTID CCA Velocities: Within normal limits. ICA Velocities Peak systolic 0.92 m/s. End diastolic 0.19 m/s. Proximal ICA/CCA peak systolic ratio 1.4. Spectra normal. No significant plaque. LEFT CAROTID CCA Velocities: Within normal limits. ICA Velocities Peak systolic 1.2 m/s. End diastolic 0.25 m/s. Proximal ICA/CCA peak systolic ratio 0.8. Spectra normal. No significant plaque. VERTEBRAL ARTERIES: Antegrade flow. Normal waveforms. SUBCLAVIAN ARTERIES: Not evaluated OTHER: No other significant finding. IMPRESSION: NO HEMODYNAMICALLY SIGNIFICANT STENOSIS. COMMENT: Quality ID #[id number]: Velocity criteria are extrapolated from the diameter data as defined by t he Society of Radiologists in Ultrasound Consensus Conference. Radiology 2003: 229; 340-346. TECHNICAL DOCUMENTATION: JOB ID: [id number] [employer]- All Rights Reserved Reading location - IP/workstation name: [email or web address]
[2018-03-21] MEDS: INSULIN LISPRO 100 UNIT/ML 3 ML VIAL SUBCUT PRN ×2 (12:24→17:23)
--- NOTE | 2018-03-21 12:50 | PDOC H&P ---
History of Present Illness Admission Date/PCP: 03/20/18 17:54 LEATHA DUNN MD Patient complains of: Dizziness and weakness and Vomiting History of Present Illness: MALGORZATA SOSA is a 77 year old female Is a 77-year-old female present emergency department yesterday with the complaining of dizziness and vertigo type symptoms and the patient found some UTI and start the patient on the BactrimFor the urinary tract infection patients came today because of the not feeling well upset stomach and still feeling the room spinning Patient underwent for the MRI of the head she is negative for any acute stroke and patient have a CT abdomen and pelvis was done was all stable and blood work was all stable At this point patient was admitting in the hospital forFurther evaluations Patient's denied any chest pain denied any shortness of the breath She does feel better this morning Past Medical History Cardiac Medical History: Reports: Hyperlipidema, Hypertension, Peripheral Vascular Disease Denies: Coronary Artery Disease, Myocardial Infarction Pulmonary Medical History: Denies: Asthma, Bronchitis, Chronic Obstructive Pulmonary Disease (COPD), Pneumonia Neurological Medical History: Denies: Seizures Endocrine Medical History: Reports: Diabetes Mellitus Type 2 Renal/ Medical History: Reports: Chronic Kidney Disease GI Medical History: Reports: Gastroesophageal Reflux Disease Musculoskeltal Medical History: Denies: Arthritis Psychiatric Medical History: Denies: Depression Hematology: Denies: Anemia Past Surgical History Past Surgical History: Reports: Cholecystectomy, Other - Midline incision for uncertain reason Social History Smoking Status: Unknown if Ever Smoked Frequency of Alcohol Use: None Hx Recreational Drug Use: No Drugs: None Hx Prescription Drug Abuse: No - Advance Directive Resuscitation Status: Full Code Family History Family History: Arthritis, CAD, DM, Hyperlipidemia, Hypertension Parental Family History Reviewed: Yes Children Family History Reviewed: Yes Sibling(s) Family History Reviewed.: Yes Medication/Allergy Home Medications: Metformin HCl [Glucophage] 1,000 mg PO BID 06/17/17 Timolol Maleate [Timoptic 0.25% Oph Soln 5 ml] 1 drop OU BID 06/17/17 Latanoprost [Xalatan 0.005% Oph Soln 2.5 ml] 1 drop OU QHS 10/07/17 Ferrous Sulfate [Feosol 325 mg Tablet] 325 mg PO DAILY 03/20/18 Insulin Detemir [Levemir Flextouch] 40 unit SQ QHS 03/20/18 Ondansetron [Zofran Odt 4 mg Tablet] 4 mg PO Q4HP PRN MDD started 03/1903/20/18 Sulfamethoxazole/Trimethoprim [Sulfamethoxazole-Tmp Ds Tablet] 1 tab PO BID MDD started 03/1903/20/18 Tramadol HCl [Ultram 50 mg Tablet] 50 mg PO Q12HP PRN 03/20/18 Allergies/Adverse Reactions: No Known Allergies Allergy (Verified 10/04/17 09:47) Review of Systems Constitutional: ABSENT: chills, fever(s), headache(s), weight gain, weight loss Eyes: ABSENT: visual disturbances Ears: ABSENT: hearing changes Cardiovascular: ABSENT: chest pain, dyspnea on exertion, edema, orthropnea, palpitations Respiratory: ABSENT: cough, hemoptysis Gastrointestinal: PRESENT: vomiting. ABSENT: abdominal pain, constipation, diarrhea, hematemesis, hematochezia, nausea Genitourinary: ABSENT: dysuria, hematuria Musculoskeletal: ABSENT: joint swelling Integumentary: ABSENT: rash, wounds Neurological: PRESENT: dizziness, vertigo. ABSENT: abnormal gait, abnormal speech, confusion, focal weakness, syncope Psychiatric: ABSENT: anxiety, depression, homidical ideation, suicidal ideation Endocrine: ABSENT: cold intolerance, heat intolerance, menstrual abnormalities, polydipsia, polyuria Hematologic/Lymphatic: ABSENT: easy bleeding, easy bruising, lymphadenopathy Physical Exam Vital Signs: Temp Pulse Resp BP Pulse Ox 98.2 F 69 18 117/41 L 100 03/21/18 08:00 03/21/18 08:58 03/21/18 08:58 03/21/18 08:00 03/21/18 08:58 Intake & Output 03/20/18 03/21/18 03/22/18 06:59 06:59 06:59 Intake Total 950 Balance 950 Weight 89.4 kg General appearance: PRESENT: no acute distress, well-developed, well-nourished Head exam: PRESENT: atraumatic, normocephalic Eye exam: PRESENT: conjunctiva pink, EOMI, PERRLA. ABSENT: scleral icterus Ear exam: PRESENT: normal external ear exam Mouth exam: PRESENT: moist, tongue midline Neck exam: PRESENT: full ROM. ABSENT: carotid bruit, JVD, lymphadenopathy, thyromegaly Respiratory exam: PRESENT: clear to auscultation caity Cardiovascular exam: PRESENT: RRR. ABSENT: diastolic murmur, rubs, systolic murmur Pulses: PRESENT: normal dorsalis pedis pul, +2 pedal pulses bilateral Vascular exam: PRESENT: normal capillary refill GI/Abdominal exam: PRESENT: normal bowel sounds, soft. ABSENT: distended, guarding, mass, organolmegaly, rebound, tenderness Rectal exam: PRESENT: deferred Extremities exam: PRESENT: left BKA Neurological exam: PRESENT: alert, awake, oriented to person, oriented to place , oriented to time, oriented to situation, CN II-XII grossly intact. ABSENT: motor sensory deficit Psychiatric exam: PRESENT: appropriate affect, normal mood. ABSENT: homicidal ideation, suicidal ideation Skin exam: PRESENT: dry, intact, warm. ABSENT: cyanosis, rash Results Laboratory Results: 03/21/18 08:56 03/21/18 08:56 03/21/18 03/21/18 08:56 08:56 WBC 8.3 RBC 4.15 Hgb 11.2 L Hct 34.9 L MCV 84 MCH 27.1 MCHC 32.2 RDW 13.4 Plt Count 301 Sodium 139.6 Potassium 4.4 Chloride 106 Carbon Dioxide 25 Anion Gap 9 BUN 12 Creatinine 1.05 Est GFR ( Amer) > 60 Est GFR (Non-Af Amer) 51 L Glucose 92 Calcium 9.9 Magnesium 1.7 03/20/18 03/20/18 03/21/18 20:10 20:10 02:25 Creatine Kinase 22 L < 20 L CK-MB (CK-2) 0.24 Troponin I < 0.012 03/21/18 03/21/18 03/21/18 02:25 08:56 08:56 Creatine Kinase < 20 L CK-MB (CK-2) < 0.22 0.24 Troponin I < 0.012 < 0.012 Impressions: Abdomen/Pelvis CT 03/20/18 15:04 IMPRESSION: Small umbilical and paraumbilical hernias containing mesenteric fat. No CT evidence of bowel obstruction, or free intraperitoneal air or fluid. Head MRI 03/20/18 15:25 IMPRESSION: Extensive chronic small vessel ischemic change in the hemispheric white matter No MR evidence of acute cerebellar or cerebral infarct EVIDENCE OF ACUTE STROKE: NO. Carotid Doppler Study 03/21/18 00:00 IMPRESSION: NO HEMODYNAMICALLY SIGNIFICANT STENOSIS. Assessment & Plan - Diagnosis (1) Vertigo Is this a current diagnosis for this admission?: Yes Plan: Patients all the neuro workup is negative including the MRI of Head and ultrasound for the carotid and also cardiac workup is negative we will get the start the meclizine and physical therapy (2) Nausea and vomiting Qualifiers: Vomiting type: unspecified Vomiting Intractability: non-intractable Qualified Code(s): R11.2 - Nausea with vomiting, unspecified Is this a current diagnosis for this admission?: Yes Plan: Most likely from the Bactrim start the patient on PPI (3) UTI (urinary tract infection) Qualifiers: Urinary tract infection type: site unspecified Hematuria presence: without hematuria Qualified Code(s): N39.0 - Urinary tract infection, site not specified Is this a current diagnosis for this admission?: Yes Plan: Start the patient on IV Rocephin (4) Chronic back pain Qualifiers: Back pain location: low back pain Is this a current diagnosis for this admission?: Yes (5) Dizziness Is this a current diagnosis for this admission?: Yes Plan: Patient MRI of the head and ultrasound of the carotid is all negative patient EKG and cardiac enzymes all negative will continues to monitor on the telemetryMost likely her vertigo symptoms (6) Hypertension Qualifiers: Hypertension type: essential hypertension Is this a current diagnosis for this admission?: Yes (7) S/P BKA (below knee amputation) Qualifiers: Laterality: left Is this a current diagnosis for this admission?: Yes (8) Type 2 diabetes mellitus Qualifiers: Diabetes mellitus terminal operations manager insulin use: unspecified mcfp insulin use status Is this a current diagnosis for this admission?: Yes Plan: Continues to current medications - Time Time Spent: 30 to 50 Minutes Medications reviewed and adjusted accordingly: Yes Anticipated discharge: Home Within: Other - Inpatient Certification Medical Necessity: Need Close Monitoring Due to Risk of Patient Decompensation, Need For IV Fluids, Need for IV Antibiotics Post Hospital Care: D/C Welfare Interviewer Documentation - Plan Summary Plan Summary: See other MD orders
[2018-03-21] MEDS: CEFTRIAXONE SODIUM 1,000 MG in DEXTROSE 5%-WATER 50 ML IV SCH (21:19)
[2018-03-21] MEDS: INSULIN DETEMIR 100 UNIT/ML 3 ML PEN SUBCUT SCH (21:30)
[2018-03-21] MEDS: LATANOPROST 0.005% OPH SOLN 2.5 ML OU SCH (22:29)
[2018-03-22 05:57] LABS: HEMATOCRIT 33.3 % (36.0-47.0); HEMOGLOBIN 10.8 g/dL (12.0-15.5); MEAN CORPUSCULAR HEMOGLOBIN 27.4 pg (27.0-33.4); MEAN CORPUSCULAR HGB CONC 32.5 g/dL (32.0-36.0); MEAN CORPUSCULAR VOLUME 84 fl (80-97); PLATELET COUNT 281 10^3/uL (150-450); RED BLOOD COUNT 3.95 10^6/uL (3.72-5.28); RED CELL DISTRIBUTION WIDTH 13.6 % (11.5-14.0); WHITE BLOOD COUNT 7.6 10^3/uL (4.0-10.5)
[2018-03-22 06:09] LABS: ANION GAP 7 (5-19); BLOOD UREA NITROGEN 11 mg/dL (7-20); CALCIUM 9.6 mg/dL (8.4-10.2); CARBON DIOXIDE 28 mmol/L (22-30); CHLORIDE 105 mmol/L (98-107); GLUCOSE 151 mg/dL (75-110); POTASSIUM 4.7 mmol/L (3.6-5.0); SODIUM 140.3 mmol/L (137-145)
[2018-03-22] MEDS: MECLIZINE HCL 25 MG TABLET PO PRN ×2 (08:48→21:41)
[2018-03-22] MEDS: INSULIN LISPRO 100 UNIT/ML 3 ML VIAL SUBCUT PRN ×2 (09:01→21:41)
[2018-03-22] MEDS: PANTOPRAZOLE SODIUM 40 MG VIAL IV SCH ×2 (10:40→21:41)
[2018-03-22] MEDS: ENOXAPARIN SODIUM INJ 40 MG/0.4 ML DISP.SYRIN SUBCUT SCH (10:40)
[2018-03-22] MEDS: DOCUSATE SODIUM 100 MG CAPSULE PO SCH (10:41)
--- NOTE | 2018-03-22 11:35 | PDOC PROGRESS REPORT ---
Subjective Progress Note for:: 03/22/18 Subjective:: Patient continue to experience intermittent vertigo which she described spinning of her room. There is associated nausea but no vomiting with administration of antiemetic medication. She denied chest pain but admitted to irregular heart beat. Reason For Visit: UTI DIZZY HTN DM Physical Exam Vital Signs: Temp Pulse Resp BP Pulse Ox 98.1 F 59 L 18 116/73 79 L 03/22/18 04:00 03/22/18 07:00 03/22/18 08:00 03/22/18 08:00 03/22/18 08:00 Intake & Output 03/21/18 03/22/18 03/23/18 06:59 06:59 06:59 Intake Total 2660 Balance 2660 Weight 100.8 kg General appearance: PRESENT: no acute distress Head exam: PRESENT: atraumatic, normocephalic Mouth exam: PRESENT: moist Respiratory exam: PRESENT: clear to auscultation caity, decreased breath sounds Cardiovascular exam: PRESENT: RRR, +S1, +S2. ABSENT: diastolic murmur, rubs, systolic murmur Vascular exam: PRESENT: normal capillary refill. ABSENT: pallor GI/Abdominal exam: PRESENT: normal bowel sounds, soft. ABSENT: tenderness Extremities exam: PRESENT: left BKA. ABSENT: pedal edema Musculoskeletal exam: ABSENT: ambulatory Neurological exam: PRESENT: alert, awake, oriented to person, oriented to place , oriented to time, oriented to situation, CN II-XII grossly intact. ABSENT: motor sensory deficit Psychiatric exam: PRESENT: appropriate affect, normal mood. ABSENT: homicidal ideation, suicidal ideation Skin exam: PRESENT: dry, warm, other - left foot diabetic ulcer Results Laboratory Results: 03/22/18 04:14 03/22/18 04:14 03/22/18 03/22/18 04:14 04:14 WBC 7.6 RBC 3.95 Hgb 10.8 L Hct 33.3 L MCV 84 MCH 27.4 MCHC 32.5 RDW 13.6 Plt Count 281 Sodium 140.3 Potassium 4.7 Chloride 105 Carbon Dioxide 28 Anion Gap 7 BUN 11 Creatinine 1.02 Est GFR ( Amer) > 60 Est GFR (Non-Af Amer) 53 L Glucose 151 H Calcium 9.6 Impressions: Abdomen/Pelvis CT 03/20/18 15:04 IMPRESSION: Small umbilical and paraumbilical hernias containing mesenteric fat. No CT evidence of bowel obstruction, or free intraperitoneal air or fluid. Head MRI 03/20/18 15:25 IMPRESSION: Extensive chronic small vessel ischemic change in the hemispheric white matter No MR evidence of acute cerebellar or cerebral infarct EVIDENCE OF ACUTE STROKE: NO. Carotid Doppler Study 03/21/18 00:00 IMPRESSION: NO HEMODYNAMICALLY SIGNIFICANT STENOSIS. Assessment & Plan - Diagnosis (1) BPPV (benign paroxysmal positional vertigo) Qualifiers: Laterality: unspecified laterality Qualified Code(s): H81.10 - Benign paroxysmal vertigo, unspecified ear Is this a current diagnosis for this admission?: Yes Plan: Continue current medication management with scheduled Meclizine therapy for next 24 hours and thereafter on prn bases. (2) Nausea and vomiting Qualifiers: Vomiting type: unspecified Vomiting Intractability: non-intractable Qualified Code(s): R11.2 - Nausea with vomiting, unspecified Is this a current diagnosis for this admission?: Yes Plan: Maintain on current medication management. (3) UTI (urinary tract infection) Qualifiers: Urinary tract infection type: site unspecified Hematuria presence: without hematuria Qualified Code(s): N39.0 - Urinary tract infection, site not specified Is this a current diagnosis for this admission?: Yes Plan: Continue IV Rocephin coverage. (4) Failure of outpatient treatment Is this a current diagnosis for this admission?: Yes Plan: Continue IV Rocephin coverage. (5) Diabetes mellitus type 2 with complications Qualifiers: Diabetes mellitus superintendent container terminal insulin use: with assisted use Qualified Code( s): E11.8 - Type 2 diabetes mellitus with unspecified complications; Z79.4 - intermodal customer service (current) use of insulin; Z79.4 - intermodal customer service (current) use of insulin; Z79.4 - intermodal customer service (current) use of insulin; Z79.4 - custodial (current) use of insulin Is this a current diagnosis for this admission?: Yes Plan: See covering attending physician orders. (6) Essential hypertension Is this a current diagnosis for this admission?: Yes (7) Diabetic foot ulcers Qualifiers: Diabetic foot ulcer location: heel Diabetes mellitus type: type 2 Laterality: right Non-pressure ulcer stage: unspecified non-pressure ulcer stage Qualified Code(s): E11.621 - Type 2 diabetes mellitus with foot ulcer Is this a current diagnosis for this admission?: Yes Plan: Continue current medication management. - Time Time Spent with patient: 25-34 minutes Medications reviewed and adjusted accordingly: Yes Anticipated discharge: Home with Homehealth - Inpatient Certification Based on my medical assessment, after consideration of the patient's comorbidities, presenting symptoms, or acuity I expect that the services needed warrant INPATIENT care.: Yes I certify that my determination is in accordance with my understanding of Medicare's requirements for reasonable and necessary INPATIENT services [42 CFR 412.3e].: Yes Medical Necessity: Need Close Monitoring Due to Risk of Patient Decompensation, Need For IV Fluids, Need For Continuous Telemetry Monitoring, Risk of Complication if Not Cared For in Hospital Post Hospital Care: D/C Video Production Assistant Documentation - Plan Summary Plan Summary: See covering attending physician orders. I will make patient full admission based on need for IV antibiotic and continue symptoms of vertigo with nausea and vomiting.
[2018-03-22] MEDS: TIMOLOL MALEATE 0.25% OPH SOLN 5 ML OU SCH ×2 (14:15→17:21)
[2018-03-22] MEDS: INSULIN DETEMIR 100 UNIT/ML 3 ML PEN SUBCUT SCH (21:41)
[2018-03-22] MEDS: CEFTRIAXONE SODIUM 1,000 MG in DEXTROSE 5%-WATER 50 ML IV SCH (21:41)
[2018-03-22] MEDS: LATANOPROST 0.005% OPH SOLN 2.5 ML OU SCH (21:44)
[2018-03-23 04:39] LABS: HEMATOCRIT 33.3 % (36.0-47.0); MEAN CORPUSCULAR HEMOGLOBIN 27.6 pg (27.0-33.4); MEAN CORPUSCULAR HGB CONC 33.1 g/dL (32.0-36.0); MEAN CORPUSCULAR VOLUME 83 fl (80-97); PLATELET COUNT 269 10^3/uL (150-450); RED BLOOD COUNT 3.99 10^6/uL (3.72-5.28); RED CELL DISTRIBUTION WIDTH 13.4 % (11.5-14.0); WHITE BLOOD COUNT 7.7 10^3/uL (4.0-10.5)
[2018-03-23 05:04] LABS: ANION GAP 9 (5-19); BLOOD UREA NITROGEN 13 mg/dL (7-20); CALCIUM 9.5 mg/dL (8.4-10.2); CARBON DIOXIDE 29 mmol/L (22-30); CHLORIDE 106 mmol/L (98-107); GLUCOSE 102 mg/dL (75-110); POTASSIUM 4.4 mmol/L (3.6-5.0); SODIUM 143.5 mmol/L (137-145)
[2018-03-23] MEDS: ENOXAPARIN SODIUM INJ 40 MG/0.4 ML DISP.SYRIN SUBCUT SCH (11:54)
[2018-03-23] MEDS: PANTOPRAZOLE SODIUM 40 MG VIAL IV SCH (11:54)
[2018-03-23] MEDS: TIMOLOL MALEATE 0.25% OPH SOLN 5 ML OU SCH ×2 (11:55→17:18)
[2018-03-23] MEDS: DOCUSATE SODIUM 100 MG CAPSULE PO SCH (11:56)
--- NOTE | 2018-03-23 11:59 | PDOC PROGRESS REPORT ---
Subjective Progress Note for:: 03/23/18 Subjective:: Patient reported persistence of intermittent vertigo. Less nausea and benefit from Meclizine administration. She denied chest pain or difficulty with breathing. Reason For Visit: SYPTOMATIC BPPV WITH NAUSEA/VOMITING,UTI WITH FAIL Physical Exam Vital Signs: Temp Pulse Resp BP Pulse Ox 98.9 F 66 18 139/51 H 92 03/23/18 07:29 03/23/18 07:29 03/23/18 07:29 03/23/18 07:29 03/23/18 07:29 Intake & Output 03/22/18 03/23/18 03/24/18 06:59 06:59 06:59 Intake Total 2660 608 Balance 2660 608 Weight 100.8 kg Physical Exam: General appearance: PRESENT: no acute distress Head exam: PRESENT: atraumatic, normocephalic Mouth exam: PRESENT: moist Respiratory exam: PRESENT: clear to auscultation caity Cardiovascular exam: PRESENT: RRR, +S1, +S2. ABSENT: diastolic murmur, rubs, systolic murmur Vascular exam: ABSENT: pallor GI/Abdominal exam: PRESENT: normal bowel sounds, soft. ABSENT: tenderness Extremities exam: PRESENT: left BKA. ABSENT: pedal edema Musculoskeletal exam: ABSENT: ambulatory Neurological exam: PRESENT: alert, awake, oriented to person, oriented to place , oriented to time, oriented to situation, CN II-XII grossly intact. ABSENT: motor sensory deficit Psychiatric exam: PRESENT: appropriate affect, normal mood. ABSENT: homicidal ideation, suicidal ideation Skin exam: PRESENT: dry, warm, other - left foot diabetic ulcer Results Laboratory Results: 03/23/18 04:08 03/23/18 04:08 03/23/18 03/23/18 04:08 04:08 WBC 7.7 RBC 3.99 Hgb 11.0 L Hct 33.3 L MCV 83 MCH 27.6 MCHC 33.1 RDW 13.4 Plt Count 269 Sodium 143.5 Potassium 4.4 Chloride 106 Carbon Dioxide 29 Anion Gap 9 BUN 13 Creatinine 1.04 Est GFR ( Amer) > 60 Est GFR (Non-Af Amer) 52 L Glucose 102 Calcium 9.5 Impressions: Abdomen/Pelvis CT 03/20/18 15:04 IMPRESSION: Small umbilical and paraumbilical hernias containing mesenteric fat. No CT evidence of bowel obstruction, or free intraperitoneal air or fluid. Head MRI 03/20/18 15:25 IMPRESSION: Extensive chronic small vessel ischemic change in the hemispheric white matter No MR evidence of acute cerebellar or cerebral infarct EVIDENCE OF ACUTE STROKE: NO. Carotid Doppler Study 03/21/18 00:00 IMPRESSION: NO HEMODYNAMICALLY SIGNIFICANT STENOSIS. Assessment & Plan - Diagnosis (1) BPPV (benign paroxysmal positional vertigo) Qualifiers: Laterality: unspecified laterality Qualified Code(s): H81.10 - Benign paroxysmal vertigo, unspecified ear Is this a current diagnosis for this admission?: Yes (2) Nausea and vomiting Qualifiers: Vomiting type: unspecified Vomiting Intractability: non-intractable Qualified Code(s): R11.2 - Nausea with vomiting, unspecified Is this a current diagnosis for this admission?: Yes (3) UTI (urinary tract infection) Qualifiers: Urinary tract infection type: site unspecified Hematuria presence: without hematuria Qualified Code(s): N39.0 - Urinary tract infection, site not specified Is this a current diagnosis for this admission?: Yes (4) Failure of outpatient treatment Is this a current diagnosis for this admission?: Yes (5) Diabetes mellitus type 2 with complications Qualifiers: Diabetes mellitus senior living insulin use: with senior living use Qualified Code( s): E11.8 - Type 2 diabetes mellitus with unspecified complications; Z79.4 - termite technician (current) use of insulin; Z79.4 - group home (current) use of insulin; Z79.4 - group home (current) use of insulin; Z79.4 - termite technician (current) use of insulin Is this a current diagnosis for this admission?: Yes (6) Essential hypertension Is this a current diagnosis for this admission?: Yes (7) Diabetic foot ulcers Qualifiers: Diabetic foot ulcer location: heel Diabetes mellitus type: type 2 Laterality: right Non-pressure ulcer stage: unspecified non-pressure ulcer stage Qualified Code(s): E11.621 - Type 2 diabetes mellitus with foot ulcer Is this a current diagnosis for this admission?: Yes - Time Time Spent with patient: 25-34 minutes Medications reviewed and adjusted accordingly: Yes Anticipated discharge: Home with Homehealth Within: Other - Inpatient Certification Based on my medical assessment, after consideration of the patient's comorbidities, presenting symptoms, or acuity I expect that the services needed warrant INPATIENT care.: Yes I certify that my determination is in accordance with my understanding of Medicare's requirements for reasonable and necessary INPATIENT services [42 CFR 412.3e].: Yes Medical Necessity: Need Close Monitoring Due to Risk of Patient Decompensation, Need For IV Fluids, Need For Continuous Telemetry Monitoring, Risk of Complication if Not Cared For in Hospital Post Hospital Care: D/C Wellness Health Coach Documentation - Plan Summary Plan Summary: See covering attending physician orders.
[2018-03-23] MEDS ORDERED: MECLIZINE HCL 12.5 MG TABLET PO SCH (14:00)
[2018-03-23] MEDS: INSULIN LISPRO 100 UNIT/ML 3 ML VIAL SUBCUT PRN ×3 (14:59→22:24)
[2018-03-23] MEDS: MECLIZINE HCL 25 MG TABLET PO PRN (15:12)
[2018-03-23] MEDS ORDERED: MECLIZINE HCL 12.5 MG TABLET PO ONE (15:30)
[2018-03-23] MEDS: CEFTRIAXONE SODIUM 1,000 MG in DEXTROSE 5%-WATER 50 ML IV SCH (20:15)
[2018-03-23] MEDS: LATANOPROST 0.005% OPH SOLN 2.5 ML OU SCH (22:15)
[2018-03-23] MEDS: INSULIN DETEMIR 100 UNIT/ML 3 ML PEN SUBCUT SCH (22:22)
[2018-03-23] MEDS: MECLIZINE HCL 12.5 MG TABLET PO SCH (22:27)
[2018-03-24] MEDS ORDERED: MECLIZINE HCL 12.5 MG TABLET ONE (05:32)
[2018-03-24] MEDS: MECLIZINE HCL 12.5 MG TABLET PO SCH (05:44)
[2018-03-24 08:09] VITALS: BP 136/58
[2018-03-24] MEDS: ENOXAPARIN SODIUM INJ 40 MG/0.4 ML DISP.SYRIN SUBCUT SCH (08:57)
[2018-03-24] MEDS: DOCUSATE SODIUM 100 MG CAPSULE PO SCH (09:03)
[2018-03-24] MEDS: TIMOLOL MALEATE 0.25% OPH SOLN 5 ML OU SCH (09:03)
--- NOTE | 2018-03-24 09:21 | PDOC DISCHARGE SUMMARY ---
General - Admit/Disc Date/PCP Admission Date/Primary Care Provider: 03/21/18 16:07 LEATHA DUNN MD Discharge Date: 03/24/18 - Discharge Diagnosis (1) Vertigo Is this a current diagnosis for this admission?: Yes Summary: Currently all stable continue some meclizine (2) Nausea and vomiting Is this a current diagnosis for this admission?: Yes Summary: Most likely from the Bactrim currently all resolved (3) UTI (urinary tract infection) Is this a current diagnosis for this admission?: Yes Summary: Continues to Keflex (4) Chronic back pain Is this a current diagnosis for this admission?: Yes Summary: Discussed with the patient about do not take any tramadol because the mix of people sometimes dizziness (5) Dizziness Is this a current diagnosis for this admission?: Yes Summary: Discussed with the patient's currently all blood work is stable and we will stop the tramadol (6) Hypertension Is this a current diagnosis for this admission?: Yes Summary: Currently all stable (7) S/P BKA (below knee amputation) Is this a current diagnosis for this admission?: Yes (8) Type 2 diabetes mellitus Is this a current diagnosis for this admission?: Yes Summary: Reduce the Levemir 20 minutes and discussed with the patient's adjust the dose for the blood sugar - Additional Information Resuscitation Status: Full Code Discharge Diet: Diabetic Discharge Activity: Activity As Tolerated Prescriptions: Cephalexin Monohydrate [Keflex 500 mg Capsule] 500 mg PO Q8 #21 capsule Meclizine HCl [Antivert 12.5 mg Tablet] 12.5 mg PO Q8 #30 tablet Omeprazole 40 mg PO DAILY #30 capsule.dr Home Medications: Metformin HCl [Glucophage] 1,000 mg PO BID 06/17/17 Timolol Maleate [Timoptic 0.25% Oph Soln 5 ml] 1 drop OU BID 06/17/17 Latanoprost [Xalatan 0.005% Oph Soln 2.5 ml] 1 drop OU QHS 10/07/17 Ferrous Sulfate [Feosol 325 mg Tablet] 325 mg PO DAILY 03/20/18 Ondansetron [Zofran Odt 4 mg Tablet] 4 mg PO Q4HP PRN MDD started /03/20/18 Cephalexin Monohydrate [Keflex 500 mg Capsule] 500 mg PO Q8 #21 capsule Insulin Detemir [Levemir Flextouch] 20 unit SQ QHS #0 03/24/18 Meclizine HCl [Antivert 12.5 mg Tablet] 12.5 mg PO Q8 #30 tablet 03/24/18 Omeprazole 40 mg PO DAILY #30 capsule. 03/24/18 History of Present Illness History of Present Illness: MALGORZATA SOSA is a 77 year old female Is a 77-year-old female present emergency department yesterday with the complaining of dizziness and vertigo type symptoms and the patient found some UTI and start the patient on the BactrimFor the urinary tract infection patients came today because of the not feeling well upset stomach and still feeling the room spinning Patient underwent for the MRI of the head she is negative for any acute stroke and patient have a CT abdomen and pelvis was done was all stable and blood work was all stable At this point patient was admitting in the hospital forFurther evaluations Patient's denied any chest pain denied any shortness of the breath She does feel better this morning Hospital Course Hospital Course: This is a 77-year-old female present in the emergency department with the vertigo-like symptoms and the dizziness no nausea vomiting and patient admitting in the hospital for further evaluation and IV fluid and IV antibiotic Patient MRI of the head was all negatives and other blood work was all negatives Since Bactrim was stopped and patient nausea and vomiting is all pretty much resolved Patient response very well with the meclizine denied any dizziness denied any chest pain no short of breath and patient other medical problem was stable At this point patients get the maximum benefit from the hospital and discharged home the stable condition and follow outpatient Physical Exam Vital Signs: Temp Pulse Resp BP Pulse Ox 98.0 F 71 18 136/58 H 99 03/24/18 08:08 03/24/18 08:08 03/24/18 08:08 03/24/18 08:08 03/24/18 08:08 Intake & Output 03/23/18 03/24/18 03/25/18 06:59 06:59 06:59 Intake Total 608 1192 Balance 608 1192 Weight 100.4 kg General appearance: PRESENT: no acute distress, well-developed, well-nourished Head exam: PRESENT: atraumatic, normocephalic Eye exam: PRESENT: conjunctiva pink, EOMI, PERRLA. ABSENT: scleral icterus Ear exam: PRESENT: normal external ear exam Mouth exam: PRESENT: moist, tongue midline Neck exam: PRESENT: full ROM. ABSENT: carotid bruit, JVD, lymphadenopathy, thyromegaly Respiratory exam: PRESENT: clear to auscultation caity Cardiovascular exam: PRESENT: RRR. ABSENT: diastolic murmur, rubs, systolic murmur Pulses: PRESENT: normal dorsalis pedis pul, +2 pedal pulses bilateral Vascular exam: PRESENT: normal capillary refill GI/Abdominal exam: PRESENT: normal bowel sounds, soft. ABSENT: distended, guarding, mass, organolmegaly, rebound, tenderness Rectal exam: PRESENT: deferred Extremities exam: PRESENT: other. ABSENT: pedal edema Neurological exam: PRESENT: alert, awake, oriented to person, oriented to place , oriented to time, oriented to situation, CN II-XII grossly intact. ABSENT: motor sensory deficit Psychiatric exam: PRESENT: appropriate affect, normal mood. ABSENT: homicidal ideation, suicidal ideation Skin exam: PRESENT: dry, intact, warm. ABSENT: cyanosis, rash Results Laboratory Results: 03/23/18 04:08 03/23/18 04:08 Impressions: Abdomen/Pelvis CT 03/20/18 15:04 IMPRESSION: Small umbilical and paraumbilical hernias containing mesenteric fat. No CT evidence of bowel obstruction, or free intraperitoneal air or fluid. Head MRI 03/20/18 15:25 IMPRESSION: Extensive chronic small vessel ischemic change in the hemispheric white matter No MR evidence of acute cerebellar or cerebral infarct EVIDENCE OF ACUTE STROKE: NO. Carotid Doppler Study 03/21/18 00:00 IMPRESSION: NO HEMODYNAMICALLY SIGNIFICANT STENOSIS. Qualifiers - * PATIENT BEING DISCHARGED WITH ANY OF THE FOLLOWING DIAGNOSIS: No VTE patient discharged on overlapping Therapy?: Yes Plan Time Spent: Greater than 30 Minutes - Patient's discharge home with the stable conditions following a one-week in office will recheck the urine culture and CBC and Chem-7
== END 2018-03-24 11:45 | disposition home or self-care (01) | DRG 690 ==
LOC: ER 14:30 → EH 17:54 → UNDOADMOB 17:54 → INTOOBSV 17:54 → 4N 19:39 → EH 19:39 → OBSVTOIN 03-21 16:07 → EH 03-21 16:07 → 4N 03-21 16:07
PROVIDERS: ADMIT Family Medicine; ATTEND Family Medicine
PROC: 3E0F73Z Introduction of Anti-inflammatory into Respiratory Tract, Via Natural or Artificial Opening (ICD-10-PCS; principal; 2018-03-21)
DX: N30.00 Acute cystitis without hematuria (principal); H81.10 Benign paroxysmal vertigo, unspecified ear; G89.29 Other chronic pain; M54.9 Dorsalgia, unspecified; I10 Essential (primary) hypertension; K42.9 Umbilical hernia without obstruction or gangrene; E78.00 Pure hypercholesterolemia, unspecified; E11.22 Type 2 diabetes mellitus with diabetic chronic kidney disease; E11.51 Type 2 diabetes mellitus with diabetic peripheral angiopathy without gangrene; K21.9 Gastro-esophageal reflux disease without esophagitis; E11.621 Type 2 diabetes mellitus with foot ulcer; Z89.512 Acquired absence of left leg below knee; Z79.4 Long term (current) use of insulin; Z79.899 Other long term (current) drug therapy; Z90.49 Acquired absence of other specified parts of digestive tract; Z82.61 Family history of arthritis; Z82.49 Family history of ischemic heart disease and other diseases of the circulatory system; Z83.3 Family history of diabetes mellitus
CPT/HCPCS: 36415; 70551; 74177; 80048; 80053; 82550; 82553; 82962; 83690; 83735; 84484; 85025; 85027; 87040; 93005; 93010; 93880; 96374; 96375; 99285; G0378; G8978-GP; G8979-GP; J0696; J1650; J1815; J2765; J3490; J7030; S0164

== ENCOUNTER → 2018-06-18 | Outpatient (CLI) | payer MEDICARE, BC ==
--- NOTE | 2018-06-18 14:14 | RADIOLOGY REPORT (SQ) ---
EXAM DESCRIPTION: FOOT RIGHT COMPLETE COMPLETED DATE/TIME: 06/18/2018 1:23 pm REASON FOR STUDY: NON-PRS CHRONIC ULCER OTH PRT LEFT FOOT W NECROSIS OF BONE (L97.524) L97.524 NON- PRS CHRONIC ULCER OTH PRT LEFT FOOT W NECROSIS O COMPARISON: 01/01/2018. NUMBER OF VIEWS: Three views. TECHNIQUE: AP, lateral and oblique radiographic images acquired of the right foot. LIMITATIONS: None. FINDINGS: MINERALIZATION: Marked diffuse osteoporosis. BONES: No acute fracture or dislocation. Marked lucency of the metatarsal heads, particularly the 4t h and 5th metatarsal, with indistinct appearance of the cortical outline of the 5th metatarsal head. JOINTS: No effusions. SOFT TISSUES: No soft tissue swelling. No foreign body. OTHER: No other significant finding. IMPRESSION: MARKED DIFFUSE OSTEOPOROSIS. PROMINENT LUCENCY OF THE METATARSAL HEADS, PARTICULARLY 4T H AND 5TH. THIS MAY BE DUE TO SIGNIFICANT OSTEOPOROSIS. INVOLVEMENT WITH OSTEOMYELITIS CANNOT BE EX CLUDED. TECHNICAL DOCUMENTATION: JOB ID: [id number] [employer]- All Rights Reserved Reading location - IP/workstation name: [facility]
== END ==
LOC: RAD 12:54
PROVIDERS: ATTEND Surgery
DX: L97.524 Non-pressure chronic ulcer of other part of left foot with necrosis of bone (principal); M81.8 Other osteoporosis without current pathological fracture

== ENCOUNTER → 2018-07-15 | Outpatient (CLI) | payer MEDICARE, BC ==
--- NOTE | 2018-07-16 13:06 | XCELERA REPORT ---
[address] [address] Lower Extremity Arterial Evaluation Name: MALGORZATA SOSA Age: 78 yrs Gender: Female : 1940 Patient Status: Preadmit Patient Location: Study Date: 07/15/2018 02:25 PM Procedure: A color flow and duplex scan of the lower extremity arteries was performed bilaterally with velocity and waveform anaylsis. Reason For Study: ULCER AND BONE NECROSIS Ordering Physician: SOLIS CALDERON Performed By: Marine Moseley Measurements and Calculations Right Left CIRCULAR KNIFE MACHINE CUTTER PSV 90.8 94.3 cm/sec Prox PFA PSV -40.7 -63.8 cm/sec Prox SFA PSV 67.7 75.0 cm/sec Mid SFA PSV -56.6 -52.1 cm/sec Dist SFA PSV -46.5 -31.7 cm/sec Prox Pop A PSV 67.2 32.8 cm/sec Dist KAITY PSV 40.9 cm/sec Dist HOUSEHOLD MANAGER PSV 46.4 cm/sec Brian Pedis PSV 46.1 cm/sec Right Side Arterial Evaluation Normal velocity and triphasic waveforms noted in the Common Femoral artery. Biphasic thereafter with well preserved velocities, to the infrageniculate vessels. 0-19 % stenosis at the Femoral artery. Ankle Brachial index was not done due to ulcers. Left Side Arterial Evaluation Normal velocity and triphasic waveforms noted in the Common Femoral artery. Biphasic thereafter with well preserved velocities, to the Popliteal. BKA. 0-19 % stenosis at the Femoral artery. Ankle Brachial index was possible. Interpretation Summary Mild hemodynamically significant lesions in the bilateral lower extremities, on duplex imaging, at rest. : SOLIS CALDERON > Solis Calderon
== END ==
LOC: SP 17:40
PROVIDERS: ATTEND Surgery
DX: L97.514 Non-pressure chronic ulcer of other part of right foot with necrosis of bone (principal)
CPT/HCPCS: 93925

== ENCOUNTER → 2018-07-28 | Outpatient (CLI) | payer MEDICARE, BC ==
[~2018-07-28] MED LIST changes: -BUPIVACAINE HCL 0.25 % INJ/PF (2.5 MG/1 ML) 30 ML VIAL ONE; +CEFAZOLIN 1 GM/D5W RTU 1 GM/50 ML RTUPB IV PRN; -LIDOCAINE 0.5% INJ-PF (5 MG/ML) 50 ML SDV ONE; -ONDANSETRON HCL INJ/PF 4 MG/2 ML SDV ONE
[2018-07-28 10:03] VITALS: BP 110/62
[2018-07-28 11:26] LABS: HEMATOCRIT 35.5 % (36.0-47.0); HEMOGLOBIN 11.7 g/dL (12.0-15.5); MEAN CORPUSCULAR VOLUME 85 fl (80-97); PLATELET COUNT 270 10^3/uL (150-450); RED BLOOD COUNT 4.18 10^6/uL (3.72-5.28); RED CELL DISTRIBUTION WIDTH 13.7 % (11.5-14.0); WHITE BLOOD COUNT 6.6 10^3/uL (4.0-10.5)
[2018-07-28 11:45] LABS: ANION GAP 8 (5-19); BLOOD UREA NITROGEN 19 mg/dL (7-20); CALCIUM 10.4 mg/dL (8.4-10.2); CARBON DIOXIDE 22 mmol/L (22-30); CHLORIDE 108 mmol/L (98-107); GLUCOSE 64 mg/dL (75-110); SODIUM 137.5 mmol/L (137-145)
[2018-07-28 11:50] LABS: POTASSIUM 6.2 mmol/L (3.6-5.0)
--- NOTE | 2018-07-28 22:58 | EKG REPORT ---
SEVERITY:- ABNORMAL ECG - SINUS RHYTHM LEFT ANTERIOR FASCICULAR BLOCK BORDERLINE R WAVE PROGRESSION, ANTERIOR LEADS : Confirmed by: Sagar Chaidez 28-Jul-2018 22:58:00
== END ==
LOC: OD 10:38 → EDSTATUS 08-18 14:00
PROVIDERS: ATTEND Surgery
DX: Z01.810 Encounter for preprocedural cardiovascular examination (principal); Z01.812 Encounter for preprocedural laboratory examination; Z01.818 Encounter for other preprocedural examination; L97.519 Non-pressure chronic ulcer of other part of right foot with unspecified severity; I73.9 Peripheral vascular disease, unspecified; E11.9 Type 2 diabetes mellitus without complications; I10 Essential (primary) hypertension; M19.90 Unspecified osteoarthritis, unspecified site; Z79.82 Long term (current) use of aspirin; Z89.512 Acquired absence of left leg below knee
CPT/HCPCS: 36415; 80048; 85027; 93005; 93010

== ENCOUNTER → 2018-09-04 | Outpatient (CLI) | payer MEDICARE, BC ==
[2018-09-04 17:38] LABS: ANION GAP 7 (5-19); BLOOD UREA NITROGEN 17 mg/dL (7-20); CALCIUM 9.8 mg/dL (8.4-10.2); CARBON DIOXIDE 22 mmol/L (22-30); CHLORIDE 105 mmol/L (98-107); GLUCOSE 126 mg/dL (75-110); POTASSIUM 5.7 mmol/L (3.6-5.0)
== END ==
LOC: OD 14:56
PROVIDERS: ATTEND Family Medicine
DX: E87.5 Hyperkalemia (principal)
CPT/HCPCS: 36415; 80048

== ENCOUNTER → 2018-09-09 | Outpatient (CLI) | payer MEDICARE, BC ==
[2018-09-09 13:11] LABS: ANION GAP 11 (5-19); BLOOD UREA NITROGEN 16 mg/dL (7-20); CALCIUM 9.7 mg/dL (8.4-10.2); CARBON DIOXIDE 22 mmol/L (22-30); CHLORIDE 105 mmol/L (98-107); GLUCOSE 118 mg/dL (75-110); POTASSIUM 4.7 mmol/L (3.6-5.0); SODIUM 137.8 mmol/L (137-145)
== END ==
LOC: OD 11:38
PROVIDERS: ATTEND Family Medicine
DX: E87.5 Hyperkalemia (principal)
CPT/HCPCS: 36415; 80048

== ENCOUNTER 2018-12-09 08:21 | Day surgery (SDC) | payer MEDICARE, BC ==
[~2018-12-09 08:21] MED LIST changes: +BACITRACIN INJ 50,000 UNIT VIAL ONE; +BUPIVACAINE HCL 0.25 % INJ/PF (2.5 MG/1 ML) 30 ML VIAL ONE; -LACTATED RINGERS 1000 ML IV PRN; +LIDOCAINE 0.5% INJ-PF (5 MG/ML) 50 ML SDV ONE; -LIDOCAINE 0.5% INJ-PF (5 MG/ML) 50 ML SDV SUBCUT PRN
[2018-12-09] MEDS ORDERED: DEXTROSE 50%-WATER 25 GM/50 ML DISP.SYRIN IV ONE (08:35)
[2018-12-09] MEDS ORDERED: CEFAZOLIN 1 GM/D5W RTU 1 GM/50 ML RTUPB IV ONE (09:09)
[2018-12-09 09:13] LABS: HEMATOCRIT 35.2 % (36.0-47.0); HEMOGLOBIN 11.7 g/dL (12.0-15.5); MEAN CORPUSCULAR HEMOGLOBIN 28.3 pg (27.0-33.4); MEAN CORPUSCULAR HGB CONC 33.3 g/dL (32.0-36.0); MEAN CORPUSCULAR VOLUME 85 fl (80-97); PLATELET COUNT 234 10^3/uL (150-450); RED BLOOD COUNT 4.14 10^6/uL (3.72-5.28); RED CELL DISTRIBUTION WIDTH 13.3 % (11.5-14.0); WHITE BLOOD COUNT 7.8 10^3/uL (4.0-10.5)
[2018-12-09 09:36] LABS: BLOOD UREA NITROGEN 23 mg/dL (7-20); CALCIUM 9.3 mg/dL (8.4-10.2); CARBON DIOXIDE 27 mmol/L (22-30); CHLORIDE 105 mmol/L (98-107); GLUCOSE 314 mg/dL (75-110); POTASSIUM 4.5 mmol/L (3.6-5.0)
[2018-12-09 09:42] LABS: SODIUM 135.3 mmol/L (137-145)
[2018-12-09 09:44] LABS: ANION GAP 3 (5-19)
[2018-12-09] MEDS ORDERED: FENTANYL CITRATE INJ/PF 100 MCG/2 ML AMPUL ONE (10:21)
[2018-12-09] MEDS ORDERED: MIDAZOLAM 2 MG/2 ML INJ ONE (10:22)
[2018-12-09] MEDS ORDERED: PROPOFOL INJ 200 MG/20 ML VIAL IV ONE (10:22)
--- NOTE | 2018-12-09 10:42 | PDOC H&P ---
General Chief Complaint: This patient is admitted for debridement of necrotic back abscesses. - Diagnosis (1) Abscess of back Is this a Current Diagnosis?: Yes (2) Diabetes mellitus type 2 with complications Is this a Current Diagnosis?: Yes (3) Hypertension Is this a Current Diagnosis?: Yes (4) Obesity Is this a Current Diagnosis?: Yes - Current Medications/Allergies Home Medications: Metformin HCl [Glucophage] 1,000 mg PO BID 06/17/17 Timolol Maleate [Timoptic 0.25% Oph Soln 5 ml] 1 drop OU BID 06/17/17 Latanoprost [Xalatan 0.005% Oph Soln 2.5 ml] 1 drop OU QHS 10/07/17 Allergies/Adverse Reactions: No Known Allergies Allergy (Verified 07/28/18 10:05) Past Medical History Cardiac Medical History: Reports: Hyperlipidema, Peripheral Vascular Disease Denies: Coronary Artery Disease, Myocardial Infarction, Hypertension Pulmonary Medical History: Denies: Asthma, Bronchitis, Chronic Obstructive Pulmonary Disease (COPD), Pneumonia Neurological Medical History: Denies: Seizures Endocrine Medical History: Reports: Diabetes Mellitus Type 1, Diabetes Mellitus Type 2 GI Medical History: Reports: Gastroesophageal Reflux Disease Musculoskeltal Medical History: Reports: Arthritis Psychiatric Medical History: Denies: Depression Hematology: Reports: Anemia Past Surgical History Past Surgical History: Reports: Cholecystectomy, Other - Midline incision for uncertain reason Family History Family History: Arthritis, CAD, DM, Hyperlipidemia, Hypertension Parental Family History Reviewed: No Children Family History Reviewed: No Sibling(s) Family History Reviewed.: No Social History Smoking Status: Never Smoker Frequency of Alcohol Use: None Hx Recreational Drug Use: No Drugs: None Hx Prescription Drug Abuse: No Physical Exam Additional comments: Constitutional: Well-developed well-nourished lady, obese body habitus. No apparent acute distress. Eyes: Mucous membranes pink and moist, pupils equal and reactive to light. Conjunctiva normal. Cornea normal. ENT: Hearing grossly normal. External pinna normal to inspection. Teeth intact. Tongue normal to inspection. Cardiac: Heart soundsnormal. Respiratory breath sounds are present bilaterally, normal. Normal respiratory effort. Skin: Huge, necrotic abscesses of back, 8 x 8 cms on left, 5 x 5 on right lower. Psychiatric: Judgment, memory, insight seem normal. Mood is pleasant and appropriate. Extremities: Upper extremities show normal range of movement. Pulses present noted to the radial arteries. Capillary refill normal. No cyanosis noted. No muscle wasting noted. Lower extremities shows left BKA.. Impression/Plan Plan: The plan is to debride these large necrotic areas in the operating room under local anesthesia with sedation. The expectation is that the patient will be able to go home afterwards and continue care in the wound clinic. The procedure, its risks, benefits, expected outcome and alternatives are familiar to the patient and her family. They are agreeable and wished to proceed.
[2018-12-09] MEDS ORDERED: CEFAZOLIN INJ 1 GM VIAL ONE (10:56)
[2018-12-09] MEDS ORDERED: PROMETHAZINE HCL INJ 25 MG/1 ML VIAL IV PRN (11:02)
[2018-12-09] MEDS ORDERED: FENTANYL CITRATE INJ/PF 100 MCG/2 ML AMPUL IV PRN ×3 (11:02)
[2018-12-09] MEDS ORDERED: MEPERIDINE HCL/PF INJ 25 MG/1 ML DISP.SYRIN IV PRN (11:02)
--- NOTE | 2018-12-09 11:17 | Discharge Summary ---
Discharge Summary (SDC) - Discharge Final Diagnosis: #1 multiple abscesses of the lower back. 2. Diabetes mellitus type 2. 3. Obesity. 4. Peripheral vascular disease. 5. Hypertension. Date of Surgery: 12/09/18 Discharge Date: 12/09/18 Condition: Fair Treatment or Instructions: Discharge home [after recovery per ASU criteria]. Diet , diabetic, as tolerated, when fully awake advance as tolerated. Activities within moderation encouraged. Follow up in wound clinic by appointment on Saturday of this week. Call for appointment. Leave wounds [covered], [keep clean and dry, until wound clinic visit later this week]. Hold of on school/work [until evaluation in office]. Meds per med rec. Percocet. May shower [in 48 hrs], [try to keep operated area as dry as possible]. Prescriptions: Oxycodone HCl/Acetaminophen [Percocet 5-325 mg Tablet] 1 tab PO ASDIR PRN #15 tab PRN Reason: Referrals: LEATHA DUNN MD [Primary Care Provider] - Discharge Diet: Other (Comments) - Diabetic. Respiratory Treatments at Home: Deep Breathing/Coughing Discharge Activity: Activity As Tolerated Report the Following to Your Physician Immediately: Shortness of Breath, Unusual Bleeding
--- NOTE | 2018-12-09 11:21 | Operative Report ---
Operative Report DATE OF SURGERY: 12/09/18 PREOPERATIVE DIAGNOSIS: #1 multiple abscesses of the lower back. 2. Diabetes mellitus type 2. 3. Obesity. 4. Peripheral vascular disease. 5. Hypertension. POSTOPERATIVE DIAGNOSIS: #1 multiple abscesses of the lower back. 2. Diabetes mellitus type 2. 3. Obesity. 4. Peripheral vascular disease. 5. Hypertension. OPERATION: Surgical, excisional, sharp excisional debridement of multiple back abscesses. SURGEON: SOLIS TATE HYDRAULIC LIFT DRIVER: None. ANESTHESIA: LMAC TISSUE REMOVED OR ALTERED: Necrotic skin and subcutaneous tissue. Of both sides of lower back. COMPLICATIONS: None. ESTIMATED BLOOD LOSS: 10 mL. INTRAOPERATIVE FINDINGS: Of 2 necrotic skin and subcutaneous abscesses of the lower back. On the right side approximately 2 x 2 cm and extending to the deep subcutaneous tissues. On the left side about 6 x 6 cm and extending down to the subcutaneous tissue. All necrotic and infected materials were removed. The remaining tissues looked healthy and viable. PROCEDURE: PROCEDURE: The back was prepared with [Betadine] and draped out with sterile linen. After the"universal time-out", in which it was confirmed that the patient [did receive antibiotic], the procedure commenced. The patient was appropriately anesthetized. The wound was probed. Cultures have been sent previously and were not repeated. Starting first with the right lower back . The wound was debrided of non viable tissue using forceps and cautery with removal of loose debris, as well. Debriding the entire necrotic substance which was skin and subcutaneous tissue. Proceeding from inferior to superiorly. The wound was irrigated with [Peroxide] . The edges were marsupilised with [2 /0 Chromic catgut] for optimal hemostasis and to ensure drainage, and to obviate the need for packing.The wound was now irrigated with saline and [Surgicel] placed within it, dressed with [Kerlix]. The second wound of the left lower back was now addressed identically. The wound was debrided of non viable tissue using forceps and cautery with removal of loose debris, as well. Debriding the entire necrotic substance which was skin and subcutaneous tissue. Proceeding from inferior to superiorly. The wound was irrigated with [Peroxide] . The edges were marsupilised with [2 /0 Chromic catgut] for optimal hemostasis and to ensure drainage, and to obviate the need for packing.The wound was now irrigated with saline and [Surgicel] placed within it, dressed with [Kerlix]. The procedure concluded. .
[2018-12-09] MEDS ORDERED: ONDANSETRON HCL INJ/PF 4 MG/2 ML SDV ONE (12:46)
[2018-12-09] MEDS ORDERED: ONDANSETRON 4 MG TAB.RAPDIS ONE (12:58)
[2018-12-09 15:25] VITALS: BP 124/59
== END 2018-12-09 14:30 | disposition home or self-care (01) ==
LOC: OROUT 08:21
PROVIDERS: ATTEND Surgery
DX: L98.423 Non-pressure chronic ulcer of back with necrosis of muscle (principal); E78.5 Hyperlipidemia, unspecified; K21.9 Gastro-esophageal reflux disease without esophagitis; I10 Essential (primary) hypertension; M19.90 Unspecified osteoarthritis, unspecified site; E11.9 Type 2 diabetes mellitus without complications; I73.9 Peripheral vascular disease, unspecified; D64.9 Anemia, unspecified; D57.3 Sickle-cell trait; E66.9 Obesity, unspecified; Z79.84 Long term (current) use of oral hypoglycemic drugs; Z79.82 Long term (current) use of aspirin
CPT/HCPCS: 36415; 87070; 87205; 82962; 85027; 87075; 87077; 80048; 87186; 11042; J2250; J3490 ×3; J0690 ×2; A9270; J3010; J2405; J2704; 300; S0119

== ENCOUNTER 2019-05-19 15:57 | Emergency (ER) | payer MEDICARE, BC ==
[2019-05-19 17:58] LABS: ABSOLUTE EOSINOPHILS # (AUTO) 0.2 10^3/uL (0.0-0.6); ABSOLUTE LYMPHOCYTES (AUTO) 2.2 10^3/uL (0.5-4.7); ABSOLUTE MONOCYTES (AUTO) 0.5 10^3/uL (0.1-1.4); ABSOLUTE NEUT (AUTO) 5.3 10^3/uL (1.7-8.2); BASOPHILS % (AUTO) 0.6 % (0-2); EOSINOPHILS % (AUTO) 2.1 % (0-6); HEMATOCRIT 34.9 % (36.0-47.0); HEMOGLOBIN 11.4 g/dL (12.0-15.5); LYMPHOCYTES % (AUTO) 26.8 % (13-45); MEAN CORPUSCULAR HEMOGLOBIN 27.4 pg (27.0-33.4); MEAN CORPUSCULAR HGB CONC 32.7 g/dL (32.0-36.0); MEAN CORPUSCULAR VOLUME 84 fl (80-97); MONOCYTES % (AUTO) 5.7 % (3-13); PLATELET COUNT 263 10^3/uL (150-450); RED BLOOD COUNT 4.15 10^6/uL (3.72-5.28); RED CELL DISTRIBUTION WIDTH 13.3 % (11.5-14.0); SEGMENTED NEUTROPHILS % (AUTO) 64.8 % (42-78); TOTAL CELLS COUNTED % (AUTO) 100 %; WHITE BLOOD COUNT 8.1 10^3/uL (4.0-10.5)
[2019-05-19 18:13] LABS: ALANINE AMINOTRANSFERASE 20 U/L (9-52); ALBUMIN 3.2 g/dL (3.5-5.0); ALKALINE PHOSPHATASE 84 U/L (38-126); ANION GAP 7 (5-19); ASPARTATE AMINO TRANSFERASE 17 U/L (14-36); BILIRUBIN,DIRECT 0.2 mg/dL (0.0-0.4); BILIRUBIN,TOTAL 0.3 mg/dL (0.2-1.3); BLOOD UREA NITROGEN 17 mg/dL (7-20); CALCIUM 9.6 mg/dL (8.4-10.2); CARBON DIOXIDE 24 mmol/L (22-30); CHLORIDE 107 mmol/L (98-107); GLUCOSE 131 mg/dL (75-110); POTASSIUM 4.5 mmol/L (3.6-5.0); SODIUM 137.9 mmol/L (137-145); TOTAL PROTEIN 6.2 g/dL (6.3-8.2)
[2019-05-19 19:43] LABS: APPEARANCE,URINE CLOUDY; BILIRUBIN,URINE NEGATIVE (NEGATIVE); COLOR,URINE YELLOW; GLUCOSE, URINE NEGATIVE (NEGATIVE); KETONES,URINE NEGATIVE (NEGATIVE); LEUKOCYTE ESTERASE,URINE MODERATE (NEGATIVE); NITRITE,URINE POSITIVE (NEGATIVE); PROTEIN,URINE 100 mg/dL (NEGATIVE); URINE SPECIFIC GRAVITY 1.012; UROBILINOGEN,URINE NEGATIVE mg/dL (<2.0)
[2019-05-19] MEDS ORDERED: LIDOCAINE 1% INJ-PF (10 MG/ML) 30 ML SDV IM ONE (19:46)
[2019-05-19] MEDS ORDERED: CEFTRIAXONE INJ 1000 MG VIAL IM ONE (19:46)
--- NOTE | 2019-05-19 19:47 | ER Document Report ---
ED GI/ - General Chief Complaint: Vaginal Pain Stated Complaint: VAGINAL PAIN Time Seen by Provider: 05/19/19 16:42 Primary Care Provider: LEATHA DUNN MD [Primary Care Provider] - Follow up as needed Mode of Arrival: Medic Information source: Patient Notes: Patient is a 79-year-old female presenting to the emergency department chief complaint of dysuria over the last month. Patient denies any nausea, vomiting or fever. Patient denies any worsening of her symptoms but states that she just wanted to get checked out. She reports history of urinary tract infections in the past, states that she thinks that she has another one. TRAVEL OUTSIDE OF THE [place] IN LAST 30 DAYS: No - Related Data Allergies/Adverse Reactions: No Known Allergies Allergy (Verified 07/28/18 10:05) Past Medical History - Social History Smoking Status: Never Smoker Chew tobacco use (# tins/day): No Frequency of alcohol use: None Drug Abuse: None Family History: Arthritis, CAD, DM, Hyperlipidemia, Hypertension Patient has suicidal ideation: No Patient has homicidal ideation: No - Past Medical History Cardiac Medical History: Reports: Hx Hypercholesterolemia, Hx Peripheral Vascular Disease Denies: Hx Coronary Artery Disease, Hx Heart Attack, Hx Hypertension Pulmonary Medical History: Denies: Hx Asthma, Hx Bronchitis, Hx COPD, Hx Pneumonia Neurological Medical History: Denies: Hx Cerebrovascular Accident, Hx Seizures Endocrine Medical History: Reports: Hx Diabetes Mellitus Type 1, Hx Diabetes Mellitus Type 2 Renal/ Medical History: Denies: Hx Peritoneal Dialysis GI Medical History: Reports: Hx Gastroesophageal Reflux Disease Musculoskeletal Medical History: Reports Hx Arthritis Skin Medical History: Reports Hx Cellulitis Psychiatric Medical History: Denies: Hx Depression Past Surgical History: Reports: Hx Cholecystectomy, Other - Midline incision for uncertain reason - Immunizations Immunizations up to date: Yes Hx Diphtheria, Pertussis, Tetanus Vaccination: Yes Hx Pneumococcal Vaccination: 11/18/15 Physical Exam - Vital signs Vitals: Temp Resp BP Pulse Ox 99.7 F 24 H 145/64 H 96 05/19/19 16:16 05/19/19 16:16 05/19/19 16:16 05/19/19 16:16 Course - Re-evaluation Re-evalutation: After evaluating this patient patient now admits to having diarrhea over the l ast 3 months. She denies any recent antibiotic use. CBC and CMP are unremarkable. Urinalysis shows nitrate positive urine. C. difficile pending. Patient is alert, oriented and nontoxic in appearance, her vital signs have been within normal limits while in the emergency department. She was given 1 g of ceftriaxone IM as nursing staff does not have IV access at this time. A urine culture was ordered and is pending. C-Diff test was negative. Patient will follow up with PCP regarding recurrent diarrhea. - Vital Signs Vital signs: Temp Pulse Resp BP Pulse Ox 98.7 F 66 20 127/68 H 98 05/20/19 02:33 05/20/19 02:33 05/20/19 02:33 05/20/19 02:33 05/20/19 02:33 - Laboratory Result Diagrams: 05/19/19 17:49 05/19/19 17:49 Laboratory results interpreted by me: 05/19/19 05/19/19 05/19/19 17:49 17:49 18:55 Hgb 11.4 L Hct 34.9 L Est GFR ( Amer) 58 L Est GFR (Non-Af Amer) 48 L Glucose 131 H Total Protein 6.2 L Albumin 3.2 L Urine Protein 100 H Urine Blood SMALL H Urine Nitrite POSITIVE H Ur Leukocyte Esterase MODERATE H Discharge - Discharge Clinical Impression: Urinary tract infection Qualifiers: Urinary tract infection type: site unspecified Hematuria presence: with hematuria Qualified Code(s): N39.0 - Urinary tract infection, site not specified Condition: Stable Disposition: HOME, SELF-CARE Additional Instructions: Your urine shows findings consistent with a urinary tract infection. Please take all the antibiotics as directed even if your symptoms have improved. Please follow-up with your primary care physician as needed. Return to emergency room if you develop fever >101F, persistent vomiting, become lethargic, have severe pain in your sides, or any other symptoms that are concerning to you. Please call your primary care provider to schedule a follow- up appointment. Prescriptions: Cephalexin [Cephalexin 500 MG Tablet] 1 tab PO BID #14 tablet Referrals: LEATHA DUNN MD [Primary Care Provider] - Follow up as needed
[2019-05-20 02:34] VITALS: BP 127/68
== END 2019-05-20 02:43 | disposition home or self-care (01) ==
LOC: ER 15:57
DX: N39.0 Urinary tract infection, site not specified (principal); R31.9 Hematuria, unspecified; R10.2 Pelvic and perineal pain; R30.0 Dysuria; E11.9 Type 2 diabetes mellitus without complications; R19.7 Diarrhea, unspecified
CPT/HCPCS: 99283; 96374; 96375; 36415; 87045; 87086; 87205; 85025; 87088; 80053; 81001; 87186; 87493; J3490; J0696

== ENCOUNTER 2020-03-14 13:10 | Emergency (ER) | payer MEDICARE, BC ==
[2020-03-14 14:26] LABS: ABSOLUTE BASOPHILS # (AUTO) 0.1 10^3/uL (0.0-0.2); ABSOLUTE EOSINOPHILS # (AUTO) 0.1 10^3/uL (0.0-0.6); ABSOLUTE LYMPHOCYTES (AUTO) 1.4 10^3/uL (0.5-4.7); ABSOLUTE MONOCYTES (AUTO) 0.3 10^3/uL (0.1-1.4); ABSOLUTE NEUT (AUTO) 7.4 10^3/uL (1.7-8.2); BASOPHILS % (AUTO) 0.8 % (0-2); EOSINOPHILS % (AUTO) 0.7 % (0-6); HEMATOCRIT 37.3 % (36.0-47.0); HEMOGLOBIN 12.5 g/dL (12.0-15.5); LYMPHOCYTES % (AUTO) 14.8 % (13-45); MEAN CORPUSCULAR HEMOGLOBIN 28.4 pg (27.0-33.4); MEAN CORPUSCULAR HGB CONC 33.4 g/dL (32.0-36.0); MEAN CORPUSCULAR VOLUME 85 fl (80-97); MONOCYTES % (AUTO) 3.2 % (3-13); PLATELET COUNT 245 10^3/uL (150-450); RED BLOOD COUNT 4.39 10^6/uL (3.72-5.28); RED CELL DISTRIBUTION WIDTH 13.1 % (11.5-14.0); SEGMENTED NEUTROPHILS % (AUTO) 80.5 % (42-78); TOTAL CELLS COUNTED % (AUTO) 100 %; WHITE BLOOD COUNT 9.2 10^3/uL (4.0-10.5)
[2020-03-14 14:44] LABS: ALBUMIN 3.7 g/dL (3.5-5.0); ALKALINE PHOSPHATASE 76 U/L (38-126); ANION GAP 5 (5-19); ASPARTATE AMINO TRANSFERASE 28 U/L (14-36); BILIRUBIN,DIRECT 0.1 mg/dL (0.0-0.4); BILIRUBIN,TOTAL 0.6 mg/dL (0.2-1.3); BLOOD UREA NITROGEN 22 mg/dL (7-20); CALCIUM 9.6 mg/dL (8.4-10.2); CARBON DIOXIDE 25 mmol/L (22-30); CHLORIDE 103 mmol/L (98-107); CREATINE KINASE 29 U/L (30-135); GLUCOSE 124 mg/dL (75-110); POTASSIUM 5.8 mmol/L (3.6-5.0)
--- NOTE | 2020-03-14 14:52 | ER Document Report ---
Entered by MANISH SERRANO SCRIBE 03/14/20 1345 Acting as scribe for:MONSE PALM MD ED GI/ - General Chief Complaint: Nausea/Vomiting Stated Complaint: NAUSEA/VOMITING Time Seen by Provider: 03/14/20 13:34 Primary Care Provider: LEATHA DUNN MD [Primary Care Provider] - Follow up tomorrow Mode of Arrival: Ambulatory Notes: There is a 79 year old female patient that presents to the emergency department today with complaints of frequent urination, stabbing sensation when she urinates, vomiting, and diarrhea. Patient states that she felt okay when she collin t to bed last night. Patient was put on cephalexin on 03/03 for a UTI by her PCP Dr. Dunn. According to [facility] records, a urine culture from May 19, 2017 grew out E. coli and Pseudomonas. Patient states she has felt like the room is spinning and is dizzy today as well. TRAVEL OUTSIDE OF THE [place] IN LAST 30 DAYS: No - Related Data Allergies/Adverse Reactions: No Known Allergies Allergy (Verified 07/28/18 10:05) Past Medical History - General Information source: Patient - Social History Smoking Status: Former Smoker Cigarette use (# per day): No Frequency of alcohol use: None Drug Abuse: None Lives with: Family Family History: Reviewed & Not Pertinent, Arthritis, CAD, DM, Hyperlipidemia, Hypertension - Past Medical History Cardiac Medical History: Reports: Hx Hypercholesterolemia, Hx Peripheral Vascular Disease Endocrine Medical History: Reports: Hx Diabetes Mellitus Type 1, Hx Diabetes Mellitus Type 2 GI Medical History: Reports: Hx Gastroesophageal Reflux Disease Musculoskeletal Medical History: Reports Hx Arthritis Skin Medical History: Reports Hx Cellulitis Past Surgical History: Reports: Hx Cholecystectomy, Hx Orthopedic Surgery - Left BKA, Other - Midline incision for uncertain reason - Immunizations Immunizations up to date: Yes Hx Diphtheria, Pertussis, Tetanus Vaccination: Yes Hx Pneumococcal Vaccination: 11/18/15 Review of Systems - Review of Systems Constitutional: No symptoms reported EENT: No symptoms reported Cardiovascular: See HPI, Dizziness Respiratory: No symptoms reported Gastrointestinal: See HPI, Diarrhea, Vomiting Genitourinary: See HPI, Frequency Female Genitourinary: No symptoms reported Musculoskeletal: No symptoms reported Skin: No symptoms reported Hematologic/Lymphatic: No symptoms reported Neurological/Psychological: No symptoms reported -: Yes All other systems reviewed and negative Physical Exam - Vital signs Vitals: Temp 98.4 F 03/14/20 14:43 - General General appearance: Appears well, Alert In distress: None - HEENT Head: Normocephalic, Atraumatic Eyes: Normal Conjunctiva: Normal Notes: no lateral gaze nystagmus - Respiratory Respiratory status: No respiratory distress Chest status: Nontender Breath sounds: Normal - Cardiovascular Rhythm: Regular, Extrasystoles Heart sounds: Normal auscultation Murmur: No - Abdominal Inspection: Obese Distension: No distension Bowel sounds: Normal - Back Back: Normal, Nontender - Extremities General upper extremity: Normal inspection, Nontender, Normal strength General lower extremity: Other - Left BKA. No: Edema - Neurological Neuro grossly intact: Yes Cognition: Normal Orientation: AAOx4 Notes: There is no lateral gaze nystagmus. I had the patient sit up and look up down left right rapidly and she shook her head and there was no dizziness provoked. - Psychological Associated symptoms: Normal affect, Normal mood - Skin Skin Temperature: Warm Skin Moisture: Dry Skin Color: Normal Course - Re-evaluation Re-evalutation: 03/14/20 19:59 The patient's potassium was 5.8, although her renal function is normal. When asked about potassium consumption, she states that she is supposed to avoid oranges and orange juice because of 1 of her insulins, but she did drink some orange juice a few days ago. She does admit to eating apples regularly. - Vital Signs Vital signs: Temp Pulse Resp BP Pulse Ox 98.4 F 60 21 H 131/48 H 98 03/14/20 14:45 03/14/20 14:45 03/14/20 19:01 03/14/20 19:01 03/14/20 19:01 - Laboratory Result Diagrams: 03/14/20 14:04 03/14/20 14:04 Laboratory results interpreted by me: 03/14/20 03/14/20 03/14/20 14:04 14:04 19:44 Seg Neutrophils % 80.5 H Sodium 133.4 L Potassium 5.8 H BUN 22 H Glucose 124 H Creatine Kinase 29 L Urine Protein 100 H Urine Ketones TRACE H Urine Blood MODERATE H - EKG Interpretation by Me EKG shows normal: Sinus rhythm, Stebbins, Intervals, QRS Complexes, ST-T Waves Rate: Normal - 61 Rhythm: NSR, PVC's Stebbins/QRS: LAHB/LAFB When compared to previous EKG there are: No significant change - Consults Dr. Dunn Time consulted: 20:21 Consulted provider: follow-up in office - He will have the office contact her tomorrow to repeat her lab work. Discharge - Discharge Clinical Impression: Nausea, vomiting and diarrhea, Hyperkalemia Condition: Stable Disposition: HOME, SELF-CARE Additional Instructions: Gastroenteritis You most likely have gastroenteritis. This is an irritation of the stomach and intestinal tract. It's usually caused by a virus, but can also be caused by bacteria, toxins that cause food poisoning, or excessive alcohol intake. Symptoms may include fever, painful abdominal cramps, nausea, vomiting, and diarrhea. Start with small amounts (two to six ounces) of clear liquids (soft drinks, herb teas, broth, etc). Try to take fluids frequently even if you are vomiting, to prevent dehydration. When liquids are being consumed successfully, advance to small amounts of bland food (mashed potato, toast) for 6 - 12 hours. Gastroenteritis rarely requires medication. It goes away by itself. Use good handwashing so you don't spread germs. Wash underwear in very hot water. If symptoms are severe, talk to the doctor. Call your physician if blood appears in your vomitus or stool, if vomiting lasts longer than 24 hours, if the abdominal pain worsens or becomes localized to one area, or if you develop high fever. Urinary Tract Infection Your evaluation indicates that you have a urinary tract infection. This is due to germs growing in the bladder. This is a common problem. This infection usually responds quickly to antibiotics. Your antibiotic should be taken exactly as prescribed. Drink plenty of fluids -- three to four quarts a day. Occasionally, a bladder anesthetic will be prescribed to help stop the feeling of urgency until the antibiotic has a chance to clear the infection. This may cause your urine to be dark orange. Certain urine infections require a culture. If the doctor obtained a culture, the results will be back in two days. You should call to see if a change in treatment is needed. A repeat urinalysis after you finish treatment is often recommended. The physician will let you know if further testing is required. Call the doctor if you develop fever, chills, flank pain, inability to urinate, or blood in the urine. Hyperkalemia Your serum potassium level was elevated today. I discussed your case with Dr. Dunn and he tells me that that is not uncommon problem for you. You should avoid oranges, orange juice, apples, and any other fruits or vegetables that are high in potassium. Take the Zofran as dispensed if needed for nausea tonight. Take the cephalexin as prescribed for your urinary tract infection. The urine was cultured. Drink small sips of cool clear liquids throughout the evening. Dr. Dunn is going to have his office call you tomorrow to schedule a time to come in and repeat your lab work. RETURN TO THE EMERGENCY ROOM IF ANY NEW OR WORSENING SYMPTOMS. Prescriptions: Cephalexin Monohydrate [Keflex 500 mg Capsule] 500 mg PO TID #15 capsule Referrals: LEATHA DUNN MD [Primary Care Provider] - Follow up tomorrow I personally performed the services described in the documentation, reviewed and edited the documentation which was dictated to the scribe in my presence, and it accurately records my words and actions.
[2020-03-14] MEDS ORDERED: NORMAL SALINE 1000 ML 1,000 ML IV ONE ×2 (14:57→15:45)
[2020-03-14 19:56] LABS: APPEARANCE,URINE SLIGHTLY-CLOUDY; BILIRUBIN,URINE NEGATIVE (NEGATIVE); COLOR,URINE YELLOW; GLUCOSE, URINE NEGATIVE (NEGATIVE); KETONES,URINE TRACE mg/dL (NEGATIVE); LEUKOCYTE ESTERASE,URINE NEGATIVE (NEGATIVE); NITRITE,URINE NEGATIVE (NEGATIVE); PROTEIN,URINE 100 mg/dL (NEGATIVE); URINE SPECIFIC GRAVITY 1.009; UROBILINOGEN,URINE NEGATIVE mg/dL (<2.0)
[2020-03-14] MEDS ORDERED: ONDANSETRON ODT 4 MG TAB (6 TAB/ER DISP) PO PRN (20:32)
[2020-03-14] MEDS ORDERED: CEPHALEXIN 500 MG CAPSULE PO ONE (20:39)
[2020-03-14] MEDS ORDERED: PHENAZOPYRIDINE HCL 200 MG TABLET PO ONE (20:42)
[2020-03-14 21:22] VITALS: BP 114/98
--- NOTE | 2020-03-14 21:42 | EKG REPORT ---
SEVERITY:- ABNORMAL ECG - SINUS RHYTHM VENTRICULAR TRIGEMINY LEFT ANTERIOR FASCICULAR BLOCK : Confirmed by: Debbie Rosales MD 14-Mar-2020 21:41:23
== END 2020-03-14 21:22 | disposition home or self-care (01) ==
LOC: ER 13:10
DX: R11.2 Nausea with vomiting, unspecified (principal); R19.7 Diarrhea, unspecified; R35.0 Frequency of micturition; E87.5 Hyperkalemia; R42 Dizziness and giddiness; E11.51 Type 2 diabetes mellitus with diabetic peripheral angiopathy without gangrene; I49.3 Ventricular premature depolarization; I44.4 Left anterior fascicular block; Z87.891 Personal history of nicotine dependence; Z87.440 Personal history of urinary (tract) infections
CPT/HCPCS: 93005; 99284; 96360; 96361; 36415; 87086; 82550; 85025; 80053; 81001; 84484; 93010; A9270 ×3; J7030; 87088; J3490

== ENCOUNTER → 2020-03-18 | Outpatient (CLI) | payer MEDICARE, BC ==
[2020-03-18 14:26] LABS: ABSOLUTE BASOPHILS # (AUTO) 0.1 10^3/uL (0.0-0.2); ABSOLUTE EOSINOPHILS # (AUTO) 0.1 10^3/uL (0.0-0.6); ABSOLUTE MONOCYTES (AUTO) 0.3 10^3/uL (0.1-1.4); ABSOLUTE NEUT (AUTO) 3.9 10^3/uL (1.7-8.2); BASOPHILS % (AUTO) 0.9 % (0-2); EOSINOPHILS % (AUTO) 1.9 % (0-6); HEMATOCRIT 36.7 % (36.0-47.0); HEMOGLOBIN 12.2 g/dL (12.0-15.5); LYMPHOCYTES % (AUTO) 31.7 % (13-45); MEAN CORPUSCULAR HEMOGLOBIN 28.4 pg (27.0-33.4); MEAN CORPUSCULAR HGB CONC 33.4 g/dL (32.0-36.0); MEAN CORPUSCULAR VOLUME 85 fl (80-97); MONOCYTES % (AUTO) 5.1 % (3-13); PLATELET COUNT 228 10^3/uL (150-450); RED BLOOD COUNT 4.31 10^6/uL (3.72-5.28); SEGMENTED NEUTROPHILS % (AUTO) 60.4 % (42-78); TOTAL CELLS COUNTED % (AUTO) 100 %; WHITE BLOOD COUNT 6.4 10^3/uL (4.0-10.5)
[2020-03-18 14:51] LABS: ALBUMIN 3.7 g/dL (3.5-5.0); ALKALINE PHOSPHATASE 69 U/L (38-126); ANION GAP 11 (5-19); ASPARTATE AMINO TRANSFERASE 27 U/L (14-36); BILIRUBIN,DIRECT 0.1 mg/dL (0.0-0.4); BILIRUBIN,TOTAL 0.7 mg/dL (0.2-1.3); BLOOD UREA NITROGEN 18 mg/dL (7-20); CALCIUM 9.7 mg/dL (8.4-10.2); CARBON DIOXIDE 20 mmol/L (22-30); CHLORIDE 105 mmol/L (98-107); GLUCOSE 164 mg/dL (75-110); POTASSIUM 5.1 mmol/L (3.6-5.0)
== END ==
LOC: OD 12:40
PROVIDERS: ATTEND Family Medicine
DX: E87.5 Hyperkalemia (principal); R11.0 Nausea
CPT/HCPCS: 36415; 80053; 85025

== ENCOUNTER 2020-06-09 10:13 | Day surgery (SDC) | payer MEDICARE, BC ==
[2020-06-09] MEDS ORDERED: PROPOFOL INJ 200 MG/20 ML VIAL IV ONE (11:19)
--- NOTE | 2020-06-09 11:53 | Operative Report ---
Operative Report DATE OF SURGERY: 06/09/20 Operative Report: The risks benefits and alternatives of the procedure explained to the patient in detail and informed consent is obtained. A GIF Olympus video scope was inserted into the patient's mouth and hypopharynx, the esophagus is identified intubated and insufflated, the scope was then advanced through the esophagus stomach and duodenum, retroflexion maneuver is done, the esophagus stomach and first and second portions of the duodenum examined PREOPERATIVE DIAGNOSIS: Gastroesophageal reflux disease, epigastric pain POSTOPERATIVE DIAGNOSIS: 2 clean-based gastric ulcers in the antrum one noted at 3 o'clock position the other than the 10 o'clock position clean based not actively bleeding status post biopsy OPERATION: EGD with biopsy SURGEON: TRAVON HATFIELD ANESTHESIA: LMAC TISSUE REMOVED OR ALTERED: As noted above. COMPLICATIONS: None. ESTIMATED BLOOD LOSS: None. INTRAOPERATIVE FINDINGS: As noted above. PROCEDURE: Patient tolerated the procedure well. No immediate postprocedure complications are noted. Patient is discharged in good condition. Discharge date 06/09/2020. Discharge diet: Regular. Discharge activity: Regular. 2 to 3-week follow-up to discuss findings. Patient is instructed call the office or proceed to the emergency room should there be any further problems or questions. Wait on the pathology.
[2020-06-09 12:50] VITALS: BP 124/70
== END 2020-06-09 12:30 | disposition home or self-care (01) ==
LOC: END 10:13
PROVIDERS: ATTEND Internal Medicine Gastroenterology
DX: K29.50 Unspecified chronic gastritis without bleeding (principal); B96.81 Helicobacter pylori [H. pylori] as the cause of diseases classified elsewhere; K25.9 Gastric ulcer, unspecified as acute or chronic, without hemorrhage or perforation; K21.9 Gastro-esophageal reflux disease without esophagitis; E11.9 Type 2 diabetes mellitus without complications; E66.9 Obesity, unspecified; Z79.4 Long term (current) use of insulin; Z03.818 Encounter for observation for suspected exposure to other biological agents ruled out; Z79.899 Other long term (current) drug therapy; Z79.84 Long term (current) use of oral hypoglycemic drugs
CPT/HCPCS: 43239; 82962; 88342 ×2; 88305 ×2; 00731; U0003; J2704; C9803; 731; 87635